=== PATIENT | female | born 1930 | race Caucasian/White ===

== ENCOUNTER 2016-02-29 16:11 | Inpatient (IN) | payer OTHER ==
[~2016-02-29] VITALS: Ht 162.6 cm; Wt 88.8 kg
--- NOTE | 2016-02-29 02:00 | NUR ---
DR. AVINA CALLED AT HOME TO CLARIFY GOLYTELY DOSE. INFORMED THAT THERE WAS NO MOVIPREP LIKE HE HAD ORDERED. STATED THAT PT JUST NEEDS 2 LITERS OF GOLYTELY A SPLIT DOSE; HALF THIS EVENING AND HALF IN THE MORNING. ORDER READ BACK AND WRITTEN IN CHART. FRIST UNIT INFUSING, PT TOLERATING WELL. PT ASYMPTOMATIC. PT DENIES ANY LIGHT HEADEDNESS, DIZZINESS, SOB. PT HAS SMALL AMOUNT OF BRIGHT RED BLOOD NOTED ON JESUS PAD. NO OTHER COMPLAINTS. PT IS DRINKING THE GOLYTELY WITHOUT ANY ISSUES. BED IN LOWEST POSITION, CALL LIGHT IN REACH, WCTM.
--- NOTE | 2016-02-29 18:08 | DIAGNOSTIC IMAGING REPORT ---
PROCEDURE: XR HIP 2VW W W/O AP PELVIS-RT INDICATION: Right hip pain. Possible overuse injury. TECHNIQUE: AP view of the pelvis and hips with lateral view of the right hip. COMPARISON: None. FINDINGS: RIGHT HIP: Osseous structures and joint spaces are normal. PELVIS: Osseous pelvis is normal. Dystrophic calcifications overlying the right lower abdomen/upper pelvis most likely represent old calcified lymph nodes. IMPRESSION: 1. Negative pelvis and right hip. 2. Findings discussed with Dr. Iverson.
--- NOTE | 2016-02-29 18:53 | ED CLINICAL REPORT ---
Clinical Report - Physicians/Mid Levels [facility] [address] [place] [address] 02/29/2016 16:12 Patient: YOU CASTRO Time Seen: 16:55. Arrived- By private vehicle. Historian- patient. HISTORY OF PRESENT ILLNESS Chief Complaint: RECTAL BLEEDING. This started today and is still present. It was abrupt in onset and has been intermittent. The patient has had rectal bleeding but not had rectal pain. No constipation or nausea. She has had loose stools (chronically). It has been similar to previous symptoms. Similar symptoms previously: REVIEW OF SYSTEMS No chills, fever, sweats, chest pain or cough. No difficulty breathing, pedal edema, palpitations, abdominal pain or urinary problems. She has had joint pain (for several days), involving the right hip. All systems otherwise negative, except as recorded above. PAST HISTORY PCP - Margaret. Problems: Labyrinthitis. Arthritis. Anemia. Hyperlipidemia. Hypertension. Glaucoma. Vertigo. Diabetes Mellitus. Additional Surgeries: Breast surgery. Knee. Medications: Xarelto Oral. Gabapentin Oral. Lovastatin Oral. Metoprolol Tartrate Oral. Escitalopram Oxalate Oral (Tablet 5 mg), 2x a day. Acidophilus Oral. Januvia Oral (Tablet 50 mg) 1 tablet, daily. Insulin Lantus 28 28 Units, at bedtime. Antivert Oral (Tablet 25 mg), as needed. ASA Oral. Aspirin Oral (Tablet 81 mg), as needed. Glipizide Oral (Tablet 10 mg) 1 tablet, 2x a day. Januvia Oral (Tablet 100 mg) 1 tablet. Lisinopril Oral (Tablet 20 mg) 1 tablet, daily. Omeprazole Oral (Tablet Delayed Release 20 mg) 1 tablet, 2x a day. Simvastatin Oral (Tablet 20 mg) 1 tablet, daily. Allergies: Sulfa Antibiotics. SOCIAL HISTORY Former smoker. Occasional alcohol use. FAMILY HISTORY Denies family medical history. ADDITIONAL NOTES The nursing notes have been reviewed. PHYSICAL EXAM Vital Signs: 02/29/2016 16:32 BP: 174/74. HR: 86. RR: 16. O2 saturation: 95%. Temp: 98.2 F. Pain level now: 0/10. Have been reviewed. Appearance: Alert. Eyes: Pupils equal, round and reactive to light. ENT: Pharynx normal. Neck: Neck supple. CVS: Normal heart rate and rhythm. Heart sounds normal. Respiratory: No respiratory distress. Breath sounds normal. Abdomen: Soft and nontender. Bowel sounds normal. No organomegaly. No mass. Back: Normal inspection. Anoscopy: Internal hemorrhoid noted. ( performing anoscopy was very uncomfortable for the patient. I did see some nonthrombosed internal hemorrhoids. There was bright red blood flowing over these. I was not able to clearly visualize the source.). Unable to visualize source. Skin: Skin warm and dry. Extremities: Extremities exhibit normal ROM. No calf tenderness. Right hip: mild tenderness. Limited ROM secondary to pain (diminished flexion). Neurovascular intact distally. No lower extremity edema. LABS, X-RAYS, AND EKG Rt Hip X-ray: (IMPRESSION: 1. Negative pelvis and right hip.). The X-rays were interpreted contemporaneously by me and discussed with the radiologist. Laboratory Tests: UA-Culture if indicated: (TWIN: 02/29/2016 17:15) ( MsgRcvd 02/29/2016 18:14) Final results Test Result Flag Units (Reference) URINE COLOR YELLOW URINE APPEARANCE SL CLOUDY URINE GLUCOSE 2+ (NEGATIVE) URINE BILIRUBIN NEGATIVE (NEGATIVE) URINE KETONE NEGATIVE (NEGATIVE) URINE SPECIFIC GRAVITY 1.015 (1.010-1.030) URINE PH 6.0 (5.0-8.0) URINE PROTEIN 1+ (NEGATIVE) URINE UROBILINOGEN 0.2 EU/dL (0.2-1.0) URINE NITRITE POSITIVE (NEGATIVE) URINE BLOOD 2+ (NEGATIVE) URINE LEUK ESTERASE POSITIVE (NEGATIVE) URINE RBC 25-50 rbc/hpf (0-1) URINE WBC 10-15 wbc/hpf (0-1) URINE EPITHELIAL CELLS 3-5 EPI/hpf (0-5) URINE BACTERIA MANY (4+) (NONE SEEN) URINE COMMENT CULTURE INDICATED URINE CULTURES ARE SET-UP BASED ON THE FOLLOWING CRITERIA:POSITIVE NITRITEPOSITIVE LEUKOCYTE ESTERASEGREATER THAN 10 WHITE BLOOD CELLSMODERATE (2+) OR GREATER BACTERIA CBC w Diff: (TWIN: 02/29/2016 17:00) ( [facility] 02/29/2016 17:27) Final results Test Result Flag Units (Reference) WHITE BLOOD COUNT 7.5 K/uL (4.5-11.5) RED BLOOD COUNT 3.34 L M/uL (4.00-5.20) HEMOGLOBIN 7.9 L gm/dL (12.0-16.0) HEMATOCRIT 24.7 L % (36.0-46.0) MEAN CELL VOLUME 74 L fL (80-100) MEAN CORPUSCULAR HGB 24 L pg (26-34) MEAN CORPUSCULAR HGB CONC 32 g/dL (31-37) RED CELL DISTRIBUTION WIDTH 16.6 H % (11.6-14.8) PLATELET COUNT 358 K/uL (150-400) NEUTROPHIL % 72.2 % (50-75) LYMPH % 16.7 L % (25-40) MONO % 8.0 % (3-14) EOSINOPHIL % 2.3 % (0-4) BASOPHIL % 0.8 % (0-2) PT with INR: (TWIN: 02/29/2016 17:00) ( [facility] 02/29/2016 18:31) Final results Test Result Flag Units (Reference) INR 1.4 H (0.8-1.2) Low Intensity Therapy: INR 1.5-2.0 PT range 18.5-23.1Mod.Intensity Therapy: INR 2.0-3.0 PT range 23.1-31.5High Intensity Therapy: INR 2.5-3.5 PT range 27.4-35.5High Intensity Therapy 2: INR 3.0-4.0 PT range 31.5-39.3 APTT 30 SECONDS (24-34) CMP: (TWIN: 02/29/2016 17:00) ( [facility] 02/29/2016 17:50) Final results Test Result Flag Units (Reference) GLUCOSE 295 H mg/dL (70-110) BUN 14 mg/dL (7-18) CREATININE 1.1 mg/dL (0.6-1.3) Estimated GFR 50.42 mL/min Estimated GFR- >60 mL/min Note: Persistent reduction over 3 months in eGFR<60 mL/min/1.73 m2 defines CKD. Patients with eGFR values>=60 mL/min/1.73 m2 may also have CKD if evidence ofpersistent proteinuria. Additional information may be foundat www.kidney.org. SODIUM 129 L mmol/L (136-145) POTASSIUM 4.3 mmol/L (3.5-5.1) CHLORIDE 95 L mmol/L (98-107) CARBON DIOXIDE 27 mmol/L (21-32) CALCIUM 8.1 L mg/dL (8.5-10.1) TOTAL PROTEIN 7.9 g/dL (6.4-8.2) ALBUMIN 3.0 L g/dL (3.3-5.0) BILIRUBIN, TOTAL 0.3 mg/dL (0.0-1.0) ALKALINE PHOSPHATASE 91 U/L (46-116) AST (SGOT) 18 U/L (15-37) ALT (SGPT) 15 U/L (12-78) LIPASE 236 U/L (73-393) AMYLASE 36 U/L (25-115) . PROGRESS AND PROCEDURES Course of Care: Patient is stable. Discussed case with hospitalist, (Amanda). Reviewed test results and need for additional work-up. Agreed upon treatment plan, need for patient follow-up and decision to admit. Health care provider will see patient in hospital. Consult obtained. Edin. Case discussed. Phone consult only. Will see patient in the hospital. Patient/family counseled. Additional history sought. the patient's family checked with her daughter in [place] and apparently the patient is on Xarelto because many months back she had had an injury and was bedbound for some time. She had been put on warfarin to reduce the risk of DVT and PE. However given difficulty measuring levels of this she was transitioned to t this med. Her family report that she has never had a DVT or PE. Old medical records ordered. Old records unavailable. Disposition orders written (in [facility]). Disposition: Admitted. Observation. CLINICAL IMPRESSION GI bleed. Anemia. anticoagulation therapy right hip pain. INSTRUCTIONS Drink plenty of fluids. Warnings: Further evaluation is necessary. GENERAL WARNINGS: Return or contact your physician immediately if your condition worsens or changes unexpectedly, if not improving as expected, or if other problems arise. Prescription Medications: Macrobid 100 mg: Take 1 capsule orally every 12 hours for 7 days. No refills. Substitution is permissible. (Electronically signed by Cristobal Iverson MD 02/29/2016 21:56)
--- NOTE | 2016-02-29 18:53 | ED NURSING NOTES ---
Clinical Report - Nurses [place] [address] [place] [address] 02/29/2016 16:12 Patient: YOU CASTRO TRIAGE Triage time 16:30 Feb 29 2016. Acuity: LEVEL 3. Chief Complaint: RECTAL BLEED. Alert. BETTIE COMA SCORE: [place] Coma Scale: 15- eyes open spontaneously (4); best verbal response- oriented x 4 (5); best motor response- obeys commands (6). --16:48 Saad Robles R.N. 16:32 02/29/16. BP: 174/74. HR: 86. RR: 16. O2 saturation: 95% on room air. Temp: 98.2 F (oral). Pain level now: 0/10. --16:48 Saad Robles R.N. Weight: 80 kg stated. Height/Length: 64 inches Per Patient. BMI: 30.3. --16:32 Saad Robles R.N. Medications Antivert Oral (Tablet 25 mg), as needed. ASA Oral. Aspirin Oral (Tablet 81 mg), as needed. Glipizide Oral (Tablet 10 mg) 1 tablet, 2x a day. Januvia Oral (Tablet 100 mg) 1 tablet. Lisinopril Oral (Tablet 20 mg) 1 tablet, daily. Omeprazole Oral (Tablet Delayed Release 20 mg) 1 tablet, 2x a day. Simvastatin Oral (Tablet 20 mg) 1 tablet, daily. --16:35 Saad Robles R.N. Insulin Lantus 28 28 Units, at bedtime. --16:36 Saad Robles R.N. Januvia Oral (Tablet 50 mg) 1 tablet, daily. --16:37 Saad Robles R.N. Acidophilus Oral. --16:38 Saad Robles R.N. Escitalopram Oxalate Oral (Tablet 5 mg), 2x a day. --16:38 Saad Robles R.N. Metoprolol Tartrate Oral. --16:39 Travis, Saad, R.N. Lovastatin Oral. --16:40 Saad Robles R.N. Gabapentin Oral. --16:40 Saad Robles R.N. Allergies Sulfa Antibiotics. --16:35 Saad Robles R.N. Medication/allergy information source: the patient and patient's family. --16:48 Saad Robles R.N. History Arrived by private vehicle. Historian: patient. Accompanied by daughter. Primary physician (Margaret). ( Rectal Bleeding starting this morning. Also new pain in (R) leg.). This started today. Onset. (about 7 hours ago). ( Upper (R) Leg Pain). Treatment PAIN MANAGEMENT NURSE PRACTITIONER: None. PAST MEDICAL HX: Immunizations: status is unknown. The patient is post-menopausal. SOCIAL HX: Smoker- current status unknown. Alcohol use; consumes one liquor drink weekly and glass of wine weekly. No infectious disease exposure. ABUSE ASSESSMENT: No report of abuse. FALL RISK ASSESSMENT: Fall risk assessment completed. No fall risk identified. NUTRITIONAL RISK ASSESSMENT: The nutritional risk assessment revealed no deficiencies. FUNCTIONAL ASSESSMENT: Functional assessment: no impairments noted. LEARNING NEEDS ASSESSMENT: The learning needs assessment revealed no barriers. SKIN INTEGRITY ASSESSMENT: Skin integrity risk assessment completed. No skin integrity risk identified. --16:48 Saad Robles R.N. PROBLEMS: Labyrinthitis. Arthritis. Anemia. Hyperlipidemia. Hypertension. Glaucoma. Vertigo. Diabetes Mellitus. --16:43 Saad Robles R.N. ADDITIONAL SURGERIES: Breast surgery. --16:43 Saad Robles R.N. Interventions ID band on patient. To treatment room. --16:48 Saad Robles R.N. Allergy band on patient. --16:48 Saad Robles R.N. PHYSICAL ASSESSMENT Ambulatory to room. GENERAL / NEURO / PSYCH: Alert. Oriented X 4. HEENT: No facial asymmetry noted. Mucous membranes are pink. RESPIRATORY: Respirations not labored. Breath sounds within normal limits. CVS: Normal sinus rhythm noted. GI / : Abdomen soft and nontender. SKIN: Skin intact. Skin is warm and dry. Normal skin turgor. --16:49 Saad Robles R.N. NURSING PROGRESS NOTES Patient gowned. Reassurance given. Patient identifiers checked. Call light placed in reach. Bed placed in lowest position. Brakes of bed on. Patient ready for evaluation- chart flagged and ED physician notified. --16:49 Saad Robles R.N. 16:58 02/29/2016 Site #1 started via IV in the right antecubital space with an 20g angiocath, with aseptic technique and good blood return; one attempt. Blood drawn: rainbow set. Labeled in the presence of the patient and sent to the lab. Saline lock flushed with 10 mL saline. --17:13 Saad Robles R.N. ( assisted with rectal exam.). --18:43 LarryAmanda, AMITA Tech1 20:26 02/29/2016 Site #[address] upon admission; patent, no pain and no signs of infection or infiltration. Good blood return present; flushes easily (Saline Lock). --20:54 Saad Robles R.N. DISPOSITION / DISCHARGE 20:25 02/29/16. BP: 172/52. HR: 85. RR: 16. O2 saturation: 96% on room air. Temp: 98.7 F (oral). Pain level now: 0/10. --20:26 Saad Robles R.N. Departure time: 20:26 Feb 29 2016. --20:26 Saad Robles R.N. 20:26. Admitted to the Critical Care Unit. Transported via stretcher by nurse with IV. Report was given to a nurse via a phone call. Report included patient's care, treatment, medications, reviewed medication reconcilliation, and condition (including any recent changes or anticipated changes). All questions were answered. Report was acknowledged and care was transferred. (Harmony RN). Patient's personal items; items were placed in belongings bag and transported with the patient. --20:52 Saad Robles R.N. Locked/Released at 02/29/2016 20:55 by Saad Robles R.N.
--- NOTE | 2016-02-29 18:53 | ED ORDER SUMMARY ---
..... Patient: YOU CASTRO OrderSheet [facility] VisitID: [id number] [address] [place] [address] 85y, F Registration Date/Time: 02/29/2016 ORDER SHEET Weight: 80 kg (stated) Allergies: Sulfa Antibiotics GENERAL ORDERS: Set up (anoscope) (16:57 02/29/2016 Vince GARCIA) (17:12 Meseret R.N.) CBC w Diff Urgent (16:57 02/29/2016 Vince GARCIA) (Ack 16:59 NHouse ER Tech1) (17:12 Meesret R.N.) CMP Urgent (16:57 02/29/2016 Vince GARCIA) (Ack 16:59 NHouse ER Tech1) (17:12 Meseret R.N.) PT with INR Urgent (16:57 02/29/2016 Vince GARCIA) (Ack 16:59 NHouse ER Tech1) (17:12 Meseret R.N.) PTT Urgent (16:57 02/29/2016 Vince GARCIA) (Ack 16:59 NHouse ER Tech1) (17:12 Meseret R.N.) UA-Culture if indicated Urgent (16:57 02/29/2016 Vince GARCIA) (Ack 16:59 MOouse ER Tech1) (20:21 Meseret R.N.) Amylase Urgent (16:57 02/29/2016 Vince GARCIA) (Ack 16:59 NHouse ER Tech1) (17:12 Meseret R.N.) Lipase Urgent (16:57 02/29/2016 Vince GARCIA) (Ack 16:59 NHouse ER Tech1) (17:12 Meseret R.N.) Type & Screen Urgent (16:57 02/29/2016 Vince GARCIA) (Ack 16:59 MOouse ER Tech1) (17:12 Meseret R.N.) Hip 2V Right w AP Pelvis Urgent (17:43 02/29/2016 Vince GARCIA) (Ack 17:44 NHouse ER Tech1) (17:55 NHouse ER Tech1) MEDICATION ORDERS: IV FLUIDS: IV Saline Lock (16:57 02/29/2016 Vince GARCIA) (17:13 Meseret Joaquin) ORDER SHEET NOTES: [Electronically signed by Saad Robles R.N. (20:55 02/29/2016)] [Electronically signed by Cristobal Iverson MD (21:56 02/29/2016)] [Electronically locked/signed by Saad Robles R.N. (20:55 02/29/2016)]
--- NOTE | 2016-02-29 18:53 | ED ORDER SUMMARY ---
..... Patient: YOU CASTRO OrderSheet [facility] VisitID: [id number] [address] [place] [address] 85y, F Registration Date/Time: 02/29/2016 ORDER SHEET Weight: 80 kg (stated) Allergies: Sulfa Antibiotics GENERAL ORDERS: Set up (anoscope) (16:57 02/29/2016 Vince GARCIA) (17:12 Meseret R.N.) CBC w Diff Urgent (16:57 02/29/2016 Vince GARCIA) (Ack 16:59 NHouse ER Tech1) (17:12 Meseret R.N.) CMP Urgent (16:57 02/29/2016 Vince GARCIA) (Ack 16:59 NHouse ER Tech1) (17:12 Meseret R.N.) PT with INR Urgent (16:57 02/29/2016 Vince GARCIA) (Ack 16:59 NHouse ER Tech1) (17:12 Meseret R.N.) PTT Urgent (16:57 02/29/2016 Vince GARCIA) (Ack 16:59 NHouse ER Tech1) (17:12 Meseret R.N.) UA-Culture if indicated Urgent (16:57 02/29/2016 Vince GARCIA) (Ack 16:59 TNouse ER Tech1) (20:21 Meseret R.N.) Amylase Urgent (16:57 02/29/2016 Vince GARCIA) (Ack 16:59 NHouse ER Tech1) (17:12 Meseret R.N.) Lipase Urgent (16:57 02/29/2016 Vince GARCIA) (Ack 16:59 NHouse ER Tech1) (17:12 Meseret R.N.) Type & Screen Urgent (16:57 02/29/2016 Vince GARCIA) (Ack 16:59 TNouse ER Tech1) (17:12 Meseret R.N.) Hip 2V Right w AP Pelvis Urgent (17:43 02/29/2016 Vince GARCIA) (Ack 17:44 NHouse ER Tech1) (17:55 NHouse ER Tech1) MEDICATION ORDERS: IV FLUIDS: IV Saline Lock (16:57 02/29/2016 Vince GARCIA) (17:13 Meseret Joaquin) ORDER SHEET NOTES: [Electronically signed by Saad Robles R.N. (20:55 02/29/2016)] [Electronically signed by Cristobal Iverson MD (21:56 02/29/2016)] [Electronically locked/signed by Saad Robles R.N. (20:55 02/29/2016)]
[2016-02-29] MEDS ORDERED: ESCITALOPRAM OXA5 MG PO (19:59)
[2016-02-29] MEDS ORDERED: ASPIRIN81 M1 PO (19:59)
[2016-02-29] MEDS ORDERED: LANTUS SOL100 UNITS/ SC (20:00)
[2016-02-29] MEDS ORDERED: GLIPIZIDE5 MG PO (20:00)
[2016-02-29] MEDS ORDERED: JANUVIA50 MG PO (20:01)
[2016-02-29] MEDS ORDERED: LISINOPRIL10 MG PO (20:02)
[2016-02-29] MEDS ORDERED: OMEPRAZOLE20 MG PO (20:02)
[2016-02-29] MEDS ORDERED: ZOCOR20 MG PO (20:03)
[2016-02-29 20:57] VITALS: BP 185/68
[2016-02-29 21:00] VITALS: BP 173/60
--- NOTE | 2016-02-29 21:15 | NUR ---
NEW ADMIT FROM ED @ 2056. PT BROUGHT UP VIA STRETCHER BY SOLAR LAB TECHNICIAN. PT ALERT AND ORIENTED. PT'S FAMILY MEMBER PRESENT. PT ABLE TO STAND AND WALK SEVERAL STEPS TO THE BED WITH 1 PERSON ASSIST, PT TOLERATED WELL. PT BROUGHT HER HOME FWW. WHEN PT WAS TRANSFERING TO BED, THE PAD ON THE ER STRETCHER A SMALL JACKSON OF FRESH BLOOD PRESENT, AND PT'S UNDER HAD OLD AND FRESH BLOOD NOTED. PT CLEARNED UP, FRESH MESH UNDERWEAR AND PAD PLACED ALONG WITH GOWN. PT PLACED ON TELE, AND BLOOD SUGAR CHECKED AND IT WAS 264. BED IN LOWEST POSITON, CALL LIGHT IN REACH, BED IN LOWEST POSITION, WCTM.
--- NOTE | 2016-02-29 21:56 | ED MAR SUMMARY ---
..... Medication Administration Record [facility] [address] [place], [place] [id number] Patient: YOU CASTRO Visit ID: [id number] 85y, F Weight: 80.0 kg Height/Length: 64 in BMI: 30.3 ALLERGIES: Sulfa Antibiotics
--- NOTE | 2016-02-29 21:56 | ED MED RECONCILIATION SUMMARY ---
Patient: YOU CASTRO Medication Reconciliation Report [facility] VisitID: [id number] [address] [place] [address] 85y, F Registration Date/Time: 02/29/2016 Weight: 80 kg Height/Length: 64 in. BMI: 30.3 ALLERGIES: Sulfa Antibiotics The patient's Home Medications are listed below: THE FOLLOWING MEDICATIONS NEED TO BE RECONCILED: Acidophilus Oral Antivert Oral (25 mg) ASA Oral Aspirin Oral (81 mg) Escitalopram Oxalate Oral (5 mg), 2x a day Gabapentin Oral Glipizide Oral (10 mg) 1 tablet, 2x a day Insulin Lantus 28 28 Units, at bedtime Januvia Oral (50 mg) 1 tablet, daily Januvia Oral (100 mg) 1 tablet Lisinopril Oral (20 mg) 1 tablet, daily Lovastatin Oral Metoprolol Tartrate Oral Omeprazole Oral (20 mg) 1 tablet, 2x a day Simvastatin Oral (20 mg) 1 tablet, daily Xarelto Oral The source(s) of the original Home Medication information: patient patient's family member The following Medications were given to the patient in the Emergency Department: None. The following Medications were prescribed to the patient: Macrobid 100 mg: Take 1 capsule orally every 12 hours for 7 days. No refills. Substitution is permissible. -- Cristobal Iverson MD
--- NOTE | 2016-02-29 21:56 | ED MAR SUMMARY ---
..... Medication Administration Record [facility] [address] [place], [place] [id number] Patient: YOU CASTRO Visit ID: [id number] 85y, F Weight: 80.0 kg Height/Length: 64 in BMI: 30.3 ALLERGIES: Sulfa Antibiotics
--- NOTE | 2016-02-29 21:56 | ED MED RECONCILIATION SUMMARY ---
Patient: YOU CASTRO Medication Reconciliation Report [facility] VisitID: [id number] [address] [place] [address] 85y, F Registration Date/Time: 02/29/2016 Weight: 80 kg Height/Length: 64 in. BMI: 30.3 ALLERGIES: Sulfa Antibiotics The patient's Home Medications are listed below: THE FOLLOWING MEDICATIONS NEED TO BE RECONCILED: Acidophilus Oral Antivert Oral (25 mg) ASA Oral Aspirin Oral (81 mg) Escitalopram Oxalate Oral (5 mg), 2x a day Gabapentin Oral Glipizide Oral (10 mg) 1 tablet, 2x a day Insulin Lantus 28 28 Units, at bedtime Januvia Oral (50 mg) 1 tablet, daily Januvia Oral (100 mg) 1 tablet Lisinopril Oral (20 mg) 1 tablet, daily Lovastatin Oral Metoprolol Tartrate Oral Omeprazole Oral (20 mg) 1 tablet, 2x a day Simvastatin Oral (20 mg) 1 tablet, daily Xarelto Oral The source(s) of the original Home Medication information: patient patient's family member The following Medications were given to the patient in the Emergency Department: None. The following Medications were prescribed to the patient: Macrobid 100 mg: Take 1 capsule orally every 12 hours for 7 days. No refills. Substitution is permissible. -- Cristobal Iverson MD
--- NOTE | 2016-02-29 21:56 | ED DISCHARGE INSTRUCTIONS ---
Patient: YOU CASTRO General Instructions [facility] VisitID: [id number] [place] [address] 85y, F Registration Date/Time: 02/29/2016 GI bleed. Anemia. anticoagulation therapy right hip pain. INSTRUCTIONS Drink plenty of fluids. Warnings: Further evaluation is necessary. GENERAL WARNINGS: Return or contact your physician immediately if your condition worsens or changes unexpectedly, if not improving as expected, or if other problems arise. Prescription Medications: Macrobid 100 mg: Take 1 capsule orally every 12 hours for 7 days. No refills. Substitution is permissible. ADDITIONAL INFORMATION Nitrofurantoin, Nitrofurantoin, Macrocrystalline Oral capsule What is this medicine? NITROFURANTOIN (magdalene CAST toyn) is an antibiotic. It is used to treat urinary tract infections. How should I use this medicine? Take this medicine by mouth with a glass of water. Follow the directions on the prescription label. Take this medicine with food or milk. Take your doses at regular intervals. Do not take your medicine more often than directed. Do not stop taking except on your doctor's advice. Talk to your multimedia artist regarding the use of this medicine in children. While this drug may be prescribed for selected conditions, precautions do apply. What side effects may I notice from receiving this medicine? Side effects that you should report to your doctor or health resident care supervisor as soon as possible: allergic reactions like skin rash or hives, swelling of the face, lips, or tongue chest pain cough difficulty breathing dizziness, drowsiness fever or infection joint aches or pains pale or blue-tinted skin redness, blistering, peeling or loosening of the skin, including inside the mouth tingling, burning, pain, or numbness in hands or feet unusual bleeding or bruising unusually weak or tired yellowing of eyes or skin Side effects that usually do not require medical attention (report to your doctor or health resident care supervisor if they continue or are bothersome): dark urine diarrhea headache loss of appetite nausea or vomiting temporary hair loss What may interact with this medicine? antacids containing magnesium trisilicate probenecid quinolone antibiotics like ciprofloxacin, lomefloxacin, norfloxacin and ofloxacin sulfinpyrazone What if I miss a dose? If you miss a dose, take it as soon as you can. If it is almost time for your next dose, take only that dose. Do not take double or extra doses. Where should I keep my medicine? Keep out of the reach of children. Store at room temperature between 15 and 30 degrees C (59 and 86 degrees F). Protect from light. Throw away any unused medicine after the expiration date. What should I tell my health care provider before I take this medicine? They need to know if you have any of these conditions: anemia diabetes [id number] dehydrogenase deficiency kidney disease liver disease lung disease other chronic illness an unusual or allergic reaction to nitrofurantoin, other antibiotics, other medicines, foods, dyes or preservatives or trying to get breast-feeding What should I watch for while using this medicine? Tell your doctor or health resident care supervisor if your symptoms do not improve or if you get new symptoms. Drink several glasses of water a day. If you are taking this medicine for a long time, visit your doctor for regular checks on your progress. If you are diabetic, you may get a false positive result for sugar in your urine with certain brands of urine tests. Check with your doctor. You have been given the following additional information: Nitrofurantoin, Nitrofurantoin, Macrocrystalline Oral capsule (Electronically signed by Cristobal Iverson MD 02/29/2016 21:56)
--- NOTE | 2016-02-29 21:56 | ED DISCHARGE INSTRUCTIONS ---
Patient: YOU CASTRO General Instructions [facility] VisitID: [id number] [place] [address] 85y, F Registration Date/Time: 02/29/2016 GI bleed. Anemia. anticoagulation therapy right hip pain. INSTRUCTIONS Drink plenty of fluids. Warnings: Further evaluation is necessary. GENERAL WARNINGS: Return or contact your physician immediately if your condition worsens or changes unexpectedly, if not improving as expected, or if other problems arise. Prescription Medications: Macrobid 100 mg: Take 1 capsule orally every 12 hours for 7 days. No refills. Substitution is permissible. ADDITIONAL INFORMATION Nitrofurantoin, Nitrofurantoin, Macrocrystalline Oral capsule What is this medicine? NITROFURANTOIN (magdalene CAST toyn) is an antibiotic. It is used to treat urinary tract infections. How should I use this medicine? Take this medicine by mouth with a glass of water. Follow the directions on the prescription label. Take this medicine with food or milk. Take your doses at regular intervals. Do not take your medicine more often than directed. Do not stop taking except on your doctor's advice. Talk to your spanish speaking babysitter regarding the use of this medicine in children. While this drug may be prescribed for selected conditions, precautions do apply. What side effects may I notice from receiving this medicine? Side effects that you should report to your doctor or health home care attendant as soon as possible: allergic reactions like skin rash or hives, swelling of the face, lips, or tongue chest pain cough difficulty breathing dizziness, drowsiness fever or infection joint aches or pains pale or blue-tinted skin redness, blistering, peeling or loosening of the skin, including inside the mouth tingling, burning, pain, or numbness in hands or feet unusual bleeding or bruising unusually weak or tired yellowing of eyes or skin Side effects that usually do not require medical attention (report to your doctor or health home care attendant if they continue or are bothersome): dark urine diarrhea headache loss of appetite nausea or vomiting temporary hair loss What may interact with this medicine? antacids containing magnesium trisilicate probenecid quinolone antibiotics like ciprofloxacin, lomefloxacin, norfloxacin and ofloxacin sulfinpyrazone What if I miss a dose? If you miss a dose, take it as soon as you can. If it is almost time for your next dose, take only that dose. Do not take double or extra doses. Where should I keep my medicine? Keep out of the reach of children. Store at room temperature between 15 and 30 degrees C (59 and 86 degrees F). Protect from light. Throw away any unused medicine after the expiration date. What should I tell my health care provider before I take this medicine? They need to know if you have any of these conditions: anemia diabetes [id number] dehydrogenase deficiency kidney disease liver disease lung disease other chronic illness an unusual or allergic reaction to nitrofurantoin, other antibiotics, other medicines, foods, dyes or preservatives or trying to get breast-feeding What should I watch for while using this medicine? Tell your doctor or health home care attendant if your symptoms do not improve or if you get new symptoms. Drink several glasses of water a day. If you are taking this medicine for a long time, visit your doctor for regular checks on your progress. If you are diabetic, you may get a false positive result for sugar in your urine with certain brands of urine tests. Check with your doctor. You have been given the following additional information: Nitrofurantoin, Nitrofurantoin, Macrocrystalline Oral capsule (Electronically signed by Cristobal Iverson MD 02/29/2016 21:56)
[2016-02-29 22:00] VITALS: BP 151/58
--- NOTE | 2016-02-29 22:08 | Progress Note ---
Subjective General Admission History and Physical Examination Patient Name: Mere Zuluaga Admission Date: February 29, 2016 Primary Care Provider: Dominic Robles M.D. Attending Physician: Dawood Patel M.D. Admitting Physician: Dawood Patel M.D. Consulting Physician: Edwin Jesus M.D. SUBJECTIVE Historian: Patient and friend Reliability: Fair Chief Complaint: Rectal bleeding History of Present Illness: The patient is a 85-year-old white female with a significant past medical history of diabetes mellitus, vertebral compression fracture, hypertension, chronic back pain, chronic anticoagulation who presented to [facility] emergency department secondary to complaints of bright red blood per rectum. [facility] ER evaluation was consistent with rectal bleeding in the setting of chronic anticoagulation, anemia, and UTI. Secondary to the above, the patient was admitted by Dawood Patel M.D. for further evaluation and treatment. The history of present was began several months prior to admission when the patient experienced recurrent episodes of bright red blood per rectum. This was not heavy. It was intermittent. On the day of admission she had a large amount of bright red blood per rectum which prompted her to seek out evaluation at [facility] emergency department. Evaluation at [facility] emergency department showed the patient have vital signs of blood pressure 174/74, pulse 86, respirations 16, temperature 98.2. Height, O2 sat room air 95%. Physical exam was noncontributory. Laboratory evaluation included CBC hemoglobin 7.9, hematocrit 24.7, WBC 7.5, MCV 74, Chemistry profile-sodium 129, potassium 4.3, chloride 95, CO2 27, BUN 14, creatinine 1.1, glucose 295. Urinalysis was consistent with UTI. Secondary to the above the patient was admitted with a diagnosis of lower GI bleed with chronic anticoagulation, anemia, UTI, and poorly controlled diabetes mellitus. PAST MEDICAL HISTORY Illnesses: 1. Hypertension 2. Type 2 diabetes mellitus 3. Vertebral compression fractures 4. Gastroesophageal reflux 5. Anemia 6. Chronic diarrhea 7. Chronic back pain 8. Chronic anticoagulation Allergies: 1. No Known Drug Allergies Medications: 1. Prilosec 20 mg by mouth twice a day 2. Gabapentin 100 mg 2 by mouth twice a day 3. Cozaar 50 mg 1 by mouth daily 4. Simvastatin 20 mg by mouth daily 5. Lopressor 25 mg by mouth twice a day 6. Januvia 50 mg by mouth daily 7. Citalopram 20 mg by mouth daily 8. Xarelto 20 mg by mouth daily Surgery: 1. None Injuries: 1. Vertebral fracture Hospitalizations: 1. For above surgery and medical problems FAMILY HISTORY Parents: 1. Father, , 80, heart disease-type unknown, 2. Mother, , 70, lung cancer Siblings: 1. Female, , 70, colon cancer Children: 1. The patient has 4 children all of which are in good health Other significant family history: None SOCIAL HISTORY 1. Marital Status: 2. Christianity: Zoroastrian 3. Education: High school 4. Employment History: [employer], retired age 64 5. Occupational health exposures: None HABITS 1. Tobacco: Distant usage, stopped 40 years prior to admission 2. Drugs: None 3. Alcohol: 8 ounces per week 4. Caffeine: 4 cups per day-coffee HEALTH SUPERVISION Item/Test 1. Vision screen: 2014 2. Cholesterol Profile: Unknown 3. PSA: Not applicable 4. HANS: Not applicable 5. FOBT: Unknown 6. Blood Glucose: 2016 7. Colonoscopy: 2010 8. History and physical exam: 2015 9. Audiogram: Unknown 10. Pap/pelvic exam: Unknown 11: Mammogram: Unknown IMMUNIZATIONS: 1. Pneumococcal: Previously obtained date unknown 2. Influenza: 2015 3. Tetanus: 2014 REVIEW OF SYSTEMS Remarkable for those things stated in the history of present illness and past medical history. Seventeen point review of system completed with the following notable findings: Mouth: Gums soreness Respiratory: Cough Cardiovascular: Hypertension, ankle swelling Gastrointestinal: Blood in stool Musculoskeletal: Chronic back pain Neurological: Memory loss Blood and lymphatic: Anemia Endocrine: Diabetes mellitus Psychological: Depression, difficulty sleeping, loss of interest in enjoyable events Physical Exam Vital Signs / I&Os Vital Signs Date Time Temp Pulse Resp B/P Pulse O2 O2 Flow FiO2 Ox Delivery Rate 02/29 2056 97.9 76 18 185/68 99 Room Air General Appearance Alert, Oriented X3, Cooperative, No acute distress HEENT Atraumatic, PERRLA, EOMI, Moist mucous membranes Lungs Clear to auscultation, Normal air movement Neck Supple, No JVD Cardiovascular Regular rate and rhythm, Normal S1 and S2 Abdomen Normal bowel sounds, Soft, No tenderness, No guarding Extremities No cyanosis, No clubbing, Bilateral LE edema, compression wrap (R) lower leg. Neurological Cranial nerves intact, Strength 5/5 x4 ext's, No lateralizing signs Psych/Mental Status Mental status normal, Mood normal LAB Results Laboratory Tests 02/28 02/28 1715 1700 Chemistry Plasma Sodium (136 - 145 mmol/L) 129 Plasma Potassium (3.5 - 5.1 mmol/L) 4.3 Plasma Chloride (98 - 107 mmol/L) 95 CO2 (Enzymatic) (21 - 32 mmol/L) 27 BUN (7 - 18 mg/dL) 14 Creatinine (0.6 - 1.3 mg/dL) 1.1 Est GFR ( Amer) (mL/min) >60 Est GFR (Non-Af Amer) (mL/min) 50.42 Glucose (70 - 110 mg/dL) 295 Plasma Calcium (8.5 - 10.1 mg/dL) 8.1 Total Bilirubin (0.0 - 1.0 mg/dL) 0.3 AST (15 - 37 U/L) 18 ALT (12 - 78 U/L) 15 Alkaline Phosphatase (46 - 116 U/L) 91 Total Protein (6.4 - 8.2 g/dL) 7.9 Albumin (3.3 - 5.0 g/dL) 3.0 Amylase (25 - 115 U/L) 36 Lipase (73 - 393 U/L) 236 Coagulation INR (0.8 - 1.2) 1.4 APTT (24 - 34 SECONDS) 30 Hematology WBC (4.5 - 11.5 K/uL) 7.5 RBC (4.00 - 5.20 M/uL) 3.34 Hgb (12.0 - 16.0 gm/dL) 7.9 Hct (36.0 - 46.0 %) 24.7 MCV (80 - 100 fL) 74 MCH (26 - 34 pg) 24 RDW (11.6 - 14.8 %) 16.6 Neut % (Auto) (50 - 75 %) 72.2 Lymph % (Auto) (25 - 40 %) 16.7 Kane % (Auto) (3 - 14 %) 8.0 Eos % (Auto) (0 - 4 %) 2.3 Baso % (Auto) (0 - 2 %) 0.8 Plt Count, EDTA (150 - 400 K/uL) 358 PUBS MCHC (31 - 37 g/dL) 32 Urines Urine Color YELLOW Urine Appearance SL CLOUDY Urine pH (5.0 - 8.0) 6.0 Ur Specific Collins (1.010 - 1.030) 1.015 Urine Protein (NEGATIVE) 1+ Urine Ketones (NEGATIVE) NEGATIVE Urine Blood (NEGATIVE) 2+ Urine Nitrite (NEGATIVE) POSITIVE Urine Bilirubin (NEGATIVE) NEGATIVE Urine Urobilinogen (0.2 - 1.0 EU/dL) 0.2 Ur Leukocyte Esterase (NEGATIVE) POSITIVE Urine RBC (0 - 1 rbc/hpf) 25-50 Urine WBC (0 - 1 wbc/hpf) 10-15 Ur Epithelial Cells (0 - 5 EPI/hpf) 3-5 Urine Bacteria (NONE SEEN) MANY (4+) Urine Glucose (NEGATIVE) 2+ Urine Comment CULTURE INDICATED Microbiology Date/Time Procedure - Status Source Growth 02/28 1714 Urine Culture - RECD URINE CC Imaging Hip/pelvis X-Ray IMPRESSION: 1. Negative pelvis and right hip. 2. Findings discussed with Dr. Iverson. Dictated by: CATALINA VARELA MD D: BATOOL;02/29/16 4205 Assessment and Plan Problem List 1. GI bleeding Plan -Patient presents with findings of bright red blood per rectum -History of ongoing rectal bleeding -Surgical consult Dr. Jesus to perform colonoscopy -Hold anticoagulation 2. Anemia Plan -Patient shows moderate anemia -Anemia microcytic -Obtain iron studies, B12, folate -Serial hematocrits -Transfuse 2 units packed RBCs 3. Hip pain, right Plan -X-rays unremarkable -Monitor 4. Chronic anticoagulation Status Chronic Onset Date Unknown Plan -Hold anticoagulation -Discussed need for ongoing anticoagulation with PCP Dr. Robles 5. Vertebral compression fracture Status Chronic Onset Date Unknown Plan -Stable -Chronic back pain -Continue outpatient medical regimen as appropriate 6. Hypertension Status Chronic Onset Date Unknown Plan -Patient with history of hypertension -Blood pressure mildly elevated -Hold antihypertensives in setting of GI bleeding -Low-salt diet when taking well orally 7. Diabetes mellitus Status Chronic Onset Date Unknown Plan -Patient with long-standing history of diabetes mellitus -Insulin sliding scale -Check hemoglobin A1c -Monitor -Diabetic education as appropriate 8. GERD (gastroesophageal reflux disease) Status Chronic Onset Date Unknown Plan -Patient with history of gastroesophageal reflux -Continue Protonix 40 mg IV/by mouth daily -Monitor 9. Chronic diarrhea Status Chronic Onset Date Unknown Plan -Patient with history of chronic diarrhea -Check stool C&S, fecal leukocytes, C. difficile toxin, O&P -Monitor -Colonoscopy as noted above 10. UTI (urinary tract infection) Status Acute Onset Date Unknown Plan -UA suggestive of UTI -Rocephin 1 g IV daily -Urine C&S ordered -Monitor Current status: Fair, unstable Anticipated discharge date: Anticipated discharge in 24-48 hours Anticipated discharge placement: Home Patient care time: Time spent in chart review, patient interview, physical exam, CPOE, and care documentation: Greater than 70 minutes Visit to patient today: 2 Complexity of care: High E&M Codes Admission: Inpt-High/79120
[2016-02-29 23:46] VITALS: BP 151/47
[2016-03-01] VITALS (25 sets, daily range): BP systolic 127–199; BP diastolic 51–88
--- NOTE | 2016-03-01 02:00 | NUR ---
DR. MOJICA CALLED AT HOME TO CLARIFY GOLYTELY DOSE. INFORMED THAT THERE WAS NO MOVIPREP LIKE HE HAD ORDERED. STATED THAT PT JUST NEEDS 2 LITERS OF GOLYTELY A SPLIT DOSE; HALF THIS EVENING, SNF HALF IN AM. ORDER READ BACK AND WRITTEN IN CHART. FIRST UNIT INFUSING, PT TOLERATING WELL. PT ASYMPOMATIC. PT DENIES ANY LIGHT HEADEDNESS, DIZZINESS, SOB. PT HAS SMALL AMOUNT OF BRIGHT READ BLOOD NOTED ON JESUS PAD, NO OTHER COMPLAINTS. PT IS DRINKING GOLYTELY WITHOUT ANY ISSUES. BED IN LOWEST POSITION, CALL LIGHT IN REACH, WCTM.
--- NOTE | 2016-03-01 05:31 | NUR ---
PT IS RESTING IN BED. PT IS TOLERATING BLOOD WELL. PT IS ON SECOND UNIT OF BLOOD. PT NEEDS STAND BY ASSIST TO THE BSC. LABS DRAWN THIS AM. SCD'S ON LLE. PT IS STILL HAVING BRIGHT RED BLOOD NOTED ON BRIEF. PT IS ASYMPTOMATIC. STILL AWAITING STOOL SAMPLE. BED IN LOWEST POSITON, CALL LIGHT IN REACH, WCTM.
[2016-03-01] MEDS ORDERED: GABAPENTIN100 MG PO (05:44)
[2016-03-01] MEDS ORDERED: COZAAR50 MG PO (05:46)
[2016-03-01] MEDS ORDERED: LOPRESSOR25 MG PO (05:46)
[2016-03-01] MEDS ORDERED: ACIDOPHILUS PO (05:48)
[2016-03-01] MEDS ORDERED: XARELTO10 MG PO (05:49)
[2016-03-01] MEDS ORDERED: CITALOPRAM HYDR20 MG PO (05:49)
--- NOTE | 2016-03-01 10:29 | NUR ---
Patient in bed resting at this time. Denies pain and nausea. Patient continues to drink her golytley. Patient up to BSC one person assistance uses walker for support. Patient continues to pass small red blood clots. Urine yellow and clear. Generalized weakness noted from having to get up to BSC frequently. Patient instructed to cough and deep breath frequently. No sob noted. Room air sats 97%. No complaints at this time. Pleasant and cooperative with care. Will continue to monitor.
--- NOTE | 2016-03-01 12:52 | NUR ---
Patient to OR for colonoscopy. Transfered via stretcher accompanied by refrigerating technician. No complaints at this time. Pleasant and cooperative with care. Family went with patient to holding area.
--- NOTE | 2016-03-01 14:15 | NUR ---
PT RECEIVED TO PACU AROUSABLE, RESTING ON HER LEFT SIDE.
--- NOTE | 2016-03-01 14:29 | NUR ---
PT AWAKE AND CONVERSING. DENIES PAIN OR NAUSEA. DR MOJICA SPOKE WITH PT REGARDING EXAM FINDINGS AND FOLLOW-UP CARE. VSS.
--- NOTE | 2016-03-01 14:45 | NUR ---
Patient to room 304 from PACU. Trasported via stretcher accompanied by ATM TECHNICIAN. Patient ambulates from stretcher to bed with 1 person assistance. No complaints at this time. Family at bedside. Pleasant and cooperative with care. Will continue to monitor.
--- NOTE | 2016-03-01 14:51 | CONSULTATION REPORT ---
DATE OF CONSULTATION: 03/01/2016 CHIEF COMPLAINT: 1. Rectal bleeding HISTORY OF PRESENT ILLNESS: The patient is an 85-year-old woman presenting with a history of passing bright red blood per rectum. Note, the patient was placed on anticoagulants for DVT prevention after vertebral compression fracture. She only stopped these a day or so ago. MEDICAL/SURGICAL HISTORY: Medical history includes diabetes mellitus, hypertension, GERD, anemia, chronic diarrhea and back pain. Past surgeries: None. MEDICATIONS: 1. Prilosec 20 daily. 2. Gabapentin 100 mg b.i.d. 3. Cozaar 50 mg daily. 4. Simvastatin 20 mg every day. 5. Lopressor 25 daily. 6. Januvia 50 mg p.o. daily. 7. Citalopram 20 mg p.o. daily. 8. Xarelto 20 mg p.o. daily. ALLERGIES: 1. NONE TO MEDICATIONS. SOCIAL HISTORY: The patient is . 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 She quit tobacco about 40 years ago. Takes less than 1 drink per day. FAMILY HISTORY: Father had heart disease. Mother had lung cancer. She had a sister who of colon cancer at age 70. REVIEW OF SYSTEMS: A multipoint review of systems was obtained yesterday by Dr. Patel and is reviewed at this time. PHYSICAL EXAMINATION: GENERAL: The patient is alert and cooperative and conversant. HEENT: Her ears and nose demonstrated no gross external lesions. Eyes are equal. She is anicteric. NECK: Without palpable masses or thyromegaly. CHEST: Clear, without wheeze or rales. HEART: Regular, without murmur or gallop. ABDOMEN: Reveals no localized tenderness or organomegaly or ascites. EXTREMITIES: Symmetric. Extremities appears to move without restriction. LAB/IMAGING: Labs were reviewed. Her admission hematology showed she was anemic with a hemoglobin of 7.9 and hematocrit 24.7, white count of 7.5. IMPRESSION: 1. Gastrointestinal bleed 2. Anticoagulants PLAN: I recommend the patient undergo a colonoscopy. I talked about the nature of this procedure as well as the potential risks, such as that of perforation and bleeding. The patient has been prepped and would like to proceed as described to her.
--- NOTE | 2016-03-01 14:54 | OPERATIVE REPORT ---
DATE OF SURGERY: 03/01/2016 SURGEON: Edwin Jesus MD PREOPERATIVE DIAGNOSIS: 1. Rectal bleeding POSTOPERATIVE DIAGNOSES: 1. Anal mass 2. Diverticulosis PROCEDURE PERFORMED: 1. Colonoscopy with biopsy and injection hemostasis ANESTHESIA: Total IV general. INDICATIONS: The patient is an 85-year-old woman with rectal bleeding and diarrhea. SURGICAL TECHNIQUE: The patient was taken to the endoscopy suite where total IV general was administered and the patient was placed in the left lateral decubitus position. A well-lubricated colonoscope was advanced the length of the colon under direct vision. The cecum and ileocecal valves were visualized. Numerous diverticula and some fecaliths were seen in the left side of the colon, mostly in the sigmoid. On withdrawal, on retroflexed view, there was a hemorrhagic-appearing mass right at the anal verge. This was then palpated and seemed to be on the left side of the anal canal. Biopsies were obtained using the colonoscope. There was ongoing bleeding. This area was quite friable. It was injected using a scleral needle and a local anesthetic with 1:200,000 epinephrine. Some of this was also irrigated into the rectum and, once the epinephrine took hold, all bleeding ceased. This was also palpated with digital examination and was within easy reach of a finger. 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 This is likely to rebleed in the setting of anticoagulation.
--- NOTE | 2016-03-01 16:37 | NUR ---
In to see patient, removed compression wrap to right lower extremity after speaking with [facility] patients nurse laboratory manager Christina, she states that wound has been deemed "closed" and ask that I remove compression wrap, apply lotion to leg and then apply a Medigrip"F". Upon removal of wrap and adaptic, there was a small amount of serous drainage on dressing, and the wound appears open with 80% red wound base, and 20% other material, possibly dermal material. Wound gently cleansed,foam placed over top, and Medigrp "f" applied to both extremeties, as patient states she normally wears them on both legs. Pt states was told being discharged tommorrow, and agrees to call when she gets home to have a follow up appt at [facility] this week. Foam applied to ensure drainage control and promote healing until seen at clinic. RN informed.Will continue to monitor. removed old dressing, there was some serous drainage, small
--- NOTE | 2016-03-01 16:44 | Progress Note ---
Subjective General patient is seen at the bedside, still have recatl bleed, s/o colonoscopy found to have anorectal mass and possible bleeding from it,s/p epi injection, biopsy specimen sent, will moniotr H/H for now Constitutional Denies: Fever, Chills. Eyes Denies: Vision Change, Conjunctival Inflammation, Eyelid Inflammation, Redness. ENT Denies: Nasal Discharge, Nasal Congestion, Mouth Pain, Mouth Swelling, Throat Pain, Throat Swelling. Respiratory Denies: Cough, Dry, SOB w/exertion, Wheezing, Hemoptysis, Pleuritic Pain, Sputum. Cardiovascular Denies: Chest Pain, Palpitations, Orthopnea, PND, Edema. Gastrointestinal Hematochezia. Denies: Nausea, Vomiting, Abdominal Pain, Diarrhea, Constipation. Genitourinary Denies: Dysuria, Frequency, Incontinence, Hematuria. Musculoskeletal Denies: Back Pain. Skin Denies: Lesions, Jaundice, Bruising. Neurological Denies: Change in speech, Confusion. Physical Exam Vital Signs / I&Os Vital Signs Date Time Temp Pulse Resp B/P Pulse O2 O2 Flow FiO2 Ox Delivery Rate 03/01 1615 99 21 154/51 96 03/01 1545 102 27 180/76 98 03/01 1527 91 18 199/85 99 03/01 1512 87 20 183/79 95 03/01 1455 98.1 91 20 190/83 98 03/01 1435 86 16 166/74 100 03/01 1430 98.8 92 21 168/77 100 03/01 1425 85 14 164/63 99 03/01 1420 86 20 164/67 100 03/01 1415 84 17 131/90 100 03/01 1410 85 18 140/102 100 Nasal 2.0 Cannula 03/01 1405 83 20 100 Nasal 2.0 Cannula 03/01 1403 99.0 82 16 108/74 92 03/01 1116 85 20 177/70 98 Room Air 03/01 1011 97.5 86 22 184/76 98 Room Air 03/01 0940 97 21 183/66 98 Room Air 03/01 0831 90 18 170/84 99 Room Air 03/01 0735 87 19 168/68 94 Room Air 03/01 0730 Room Air 03/01 0644 168/68 03/01 0643 98.1 92 18 97 Room Air 03/01 0600 97.7 105 21 169/72 97 Room Air 03/01 0509 80 18 164/60 95 Room Air 03/01 0430 83 18 173/69 97 Room Air 03/01 0400 170/88 03/01 0345 178/72 03/01 0329 97.9 86 16 169/71 100 Room Air 03/01 0242 98.1 82 20 164/59 97 Room Air 03/01 0200 98.1 92 18 162/70 98 Room Air 03/01 0100 127/80 03/01 0041 97.9 82 18 168/64 97 03/01 0010 88 18 164/65 98 02/28 2346 97.9 86 18 151/47 99 Room Air 02/28 2200 97.9 86 16 151/58 99 Room Air 02/28 2100 173/60 02/28 2057 97.9 76 18 185/68 99 Room Air I&O 02/28 0800 02/28 1600 03/01 0000 Intake Total Output Total 350 Balance -350 General Appearance Alert, Oriented X3, No acute distress HEENT PERRLA, Moist mucous membranes Lungs Clear to auscultation Neck Normal exam, No JVD Cardiovascular Regular rate and rhythm, Normal S1 and S2 Abdomen Normal bowel sounds, Soft, No tenderness, No guarding Extremities No edema Neurological No lateralizing signs LAB Results Laboratory Tests 02/28 03/01 03/01 1715 0656 1502 Chemistry Plasma Sodium (136 - 145 mmol/L) 133 Plasma Potassium (3.5 - 5.1 mmol/L) 4.1 Plasma Chloride (98 - 107 mmol/L) 97 CO2 (Enzymatic) (21 - 32 mmol/L) 26 BUN (7 - 18 mg/dL) 9 Creatinine (0.6 - 1.3 mg/dL) 0.9 Est GFR ( Amer) (mL/min) >60 Est GFR (Non-Af Amer) (mL/min) >60 Glucose (70 - 110 mg/dL) 221 Plasma Calcium (8.5 - 10.1 mg/dL) 8.3 Hematology WBC (4.5 - 11.5 K/uL) 7.6 RBC (4.00 - 5.20 M/uL) 4.00 Hgb (12.0 - 16.0 gm/dL) 10.0 10.7 Hct (36.0 - 46.0 %) 31.0 33.8 MCV (80 - 100 fL) 78 MCH (26 - 34 pg) 25 RDW (11.6 - 14.8 %) 17.4 Neut % (Auto) (50 - 75 %) 75.4 Lymph % (Auto) (25 - 40 %) 14.3 [place] % (Auto) (3 - 14 %) 8.0 Eos % (Auto) (0 - 4 %) 2.1 Baso % (Auto) (0 - 2 %) 0.2 Plt Count, EDTA (150 - 400 K/uL) 325 PUBS MCHC (31 - 37 g/dL) 32 Urines Urine Color YELLOW Urine Appearance SL CLOUDY Urine pH (5.0 - 8.0) 6.0 Ur Specific [place] (1.010 - 1.030) 1.015 Urine Protein (NEGATIVE) 1+ Urine Ketones (NEGATIVE) NEGATIVE Urine Blood (NEGATIVE) 2+ Urine Nitrite (NEGATIVE) POSITIVE Urine Bilirubin (NEGATIVE) NEGATIVE Urine Urobilinogen (0.2 - 1.0 EU/dL) 0.2 Ur Leukocyte Esterase (NEGATIVE) POSITIVE Urine RBC (0 - 1 rbc/hpf) 25-50 Urine WBC (0 - 1 wbc/hpf) 10-15 Ur Epithelial Cells (0 - 5 EPI/hpf) 3-5 Urine Bacteria (NONE SEEN) MANY (4+) Urine Glucose (NEGATIVE) 2+ Urine Comment CULTURE INDICATED Microbiology Date/Time Procedure - Status Source Growth 03/01 99 Escherichia coli Shiga Toxins EIA - COLB STOOL 03/01 99 Campylobacter Culture - COLB STOOL 03/01 99 Salmonella/Shigella Culture - COLB STOOL 03/01 99 Clostridium difficile Toxin A & B - COLB STOOL 03/01 99 Specimen Source - COLB STOOL 03/01 99 Stool Leukocytes - COLB STOOL 03/01 0001 MRSA Screen - RECD NASAL 02/28 1715 Urine Culture - RES URINE CC GRAM NEGATIVE KNECHI Assessment and Plan Problem List 1. GI bleeding Plan s/p colonoscopy possible anorectal mass moniotr H/H transfuse as needed 2. ANTICOAGULATION Plan hold for now 3. Anemia Plan improved with PRBC transfusion
--- NOTE | 2016-03-01 16:59 | NUR ---
NUTRITION NOTE: Pt admitted with rectal bleed, GI bleed, anticoagulation and right hip pain. PT s/p colonoscopy today and now on cardiac diet. Pt ate sandwich after procedure with no problem. Pt has right leg wound and is being seen by wound care. RD to follow up with complete assessment per protocol.
--- NOTE | 2016-03-01 17:16 | NUR ---
Patient complained of headache. Tylenol 650 mg given PO for pain management. Denies nausea. Patient tolerating PO intake. Continues to have elevated BP. MD aware. No other complaints at this time. Pleasant and cooperative with care. Will continue to monitor.
--- NOTE | 2016-03-01 18:16 | NUR ---
Patient states head pain is better. Tylenol effective. Will continue to monitor.
--- NOTE | 2016-03-01 22:05 | NUR ---
PT ALER, ORIENTED,AND FORGETFUL. COOPERATIVE WITH CARE. NO DISTRESS NOTED. PT ABLE TO MAKE NEEDS KNOWN WITH CALL LIGHT. PT DENIES ANY CHEST PAIN, SOB, NAUSEA, AND VOMITING. PT DENIES ANY DIZZINESS, OR LIGHT HEADEDNESS. NO BLOOD NOTED ON PAD AT THIS TIME. STILL NEED STOOL SAMPLE, DOUGHNUT MAKER AWARE. THIS EVENING PT HAD 1 EPISODE OF CONFUSION. AFTER DOUGHNUT MAKER ASSISTED PT TO [facility] [place], PT DID NOT USE THE CALL LIGHT WHEN SHE WAS DONE. PT PULLED OUT IV AND STARTED TO STAND UP. THE PATIENT WAS ORIENTED TO SELF, PLACE, AND TIME, AND STATED, "I WAS A LITTLE CONFUSED FOR A MOMENT." SPEECH CLEAR, SENIOR COLDFUSION DEVELOPER EQUAL, NO FACIAL DROOP NOTED. PT EDUCATED SHOEMAKING FINISHER LIGHT, AND INFORMED THAT AT NIGHT A BED ALARM WILL BE USED. BED IN LOWEST POSITION, CALL LIGHT IN REACH, BED ALARM, WCTM.
--- NOTE | 2016-03-02 00:47 | NUR ---
DR. GRIFFIN PRESENT ON UNIT. RN INFORMED MD OF PT'S HEAD ACHE, AND ELEVATED BP OF 180/77. PLACED ORDER IN CPOE FOR BP MEDICATION. WCTM.
[2016-03-02 01:56] VITALS: BP 177/75
--- NOTE | 2016-03-02 02:19 | NUR ---
VITALS TAKEN @ 0200, BP 177/75, HR 95 SR NOTED, RR16, O2 SAT 96% TEMP 97.9. PT GIVEN ATACAND PER MD ORDER. BS CHECKED, 171 NOTED. PT OFFERED SNACK AND DECLINED AT THIS TIME. PT GIVEN SEVERAL SIPS OF WATER. NO OTHER COMPLAINTS AT THIS TIME. BED IN LOWEST POSITION, CALL LIGHT IN REACH, BED ALARM IS ON, WCTM.
[2016-03-02 07:54] VITALS: BP 155/96
--- NOTE | 2016-03-02 08:15 | NUR ---
Patient sitting up in chair at this time. 1 person SBA uses walker for support. Patient eating breakfast. Tolerating good PO intake. Denies pain and nausea. Patient instructed to cough and deep breath frequently. No sob noted. Room air sats 96%. No signs of bleeding noted at this time. Urine yellow and clear. No complaints at this time. Pleasant and cooperative with care. Will continue to monitor.
[2016-03-02 11:19] VITALS: BP 193/78
--- NOTE | 2016-03-02 13:47 | NUR ---
Patient up to bathroom one person SBA using walker. Med bowel movement noted with old blood clots. No complaints at this time. Pleasant and cooperative with care. Will continue to monitor.
[2016-03-02 14:37] VITALS: BP 188/88
--- NOTE | 2016-03-02 14:45 | NUR ---
Patient continues to have elevated Blood pressure. New order started. Metoprolol 25 mg give PO. No complaints at this time. Pleasant and cooperative with care. Will continue to monitor.
--- NOTE | 2016-03-02 15:48 | NUR ---
NUTRITION ASSESSMENT: S: Pt admitted with left leg infection. PMH of hypothyroidism, PTSD, chronic kidney disease, GERD, anxiety, obesity, HTN, thracic, aortic aneurysm, insomnia, MRSA, depression, pepetic ucle disease, incontinence. Pt NPO today for I and D of her left leg wound. Pt s/p knee replacement prior to admission. Pt does not have teeth or dentures and has diffuculty chewing. O: Diet rx: NPO (previously on CCD) puree Allergy: soy Wts: 82.6 kg Ht: 64" IBW: 56-62 kg BMI: 31.5 ABW: ~68 kg Est Kcals: ~5359-4388 kcals per day Est Pro: ~70-80 g per day Est Fluids: ~2.0 L per day Meds Incl: vanco, carvedilol, gabapentin, med dose SSI, linezolid, protonix, prazosin, thyroid rx, trazedone, venlafaxine HCL, see eMar for complete list. Labs Incl: (03/02) BUN 17, Creat 0.9 Skin: Niranjan Score 16; skin fragile, waffle overlay in place Accuchecks: 80-103 A: Pt NPO for I&D. Rec start diet when able to have solid foods. Rev'd meds and labs. Skin fragiel pt with increased healing needs. P: Resume previous diet when medically able, RD to follow up and monitor nutrition indices prn/protocol
[2016-03-02 18:30] VITALS: BP 162/73
[2016-03-02 22:30] VITALS: BP 172/77
--- NOTE | 2016-03-02 22:56 | Progress Note ---
Subjective General Patient is seen at the bedside, paased clots in stool, H/H is stable, BP uncontrolled Constitutional Denies: Fever, Chills, Sweats, Weakness. Eyes Denies: Vision Change. Respiratory Hemoptysis. Denies: Cough, Dry, SOB w/exertion, Wheezing, Pleuritic Pain. Cardiovascular Denies: Chest Pain, Palpitations, Orthopnea, PND, Edema. Gastrointestinal Denies: Nausea, Vomiting, Abdominal Pain, Diarrhea, Constipation, Melena, Hematochezia. Genitourinary Denies: Dysuria, Frequency, Incontinence. Neurological Denies: Weakness, Numbness, Incoordination, Change in speech, Confusion, Seizures. Physical Exam Vital Signs / I&Os Vital Signs Date Time Temp Pulse Resp B/P Pulse O2 O2 Flow FiO2 Ox Delivery Rate 03/02 2230 98.2 75 20 172/77 9 Room Air 0.0 03/02 1830 98.4 89 20 162/73 98 03/02 1437 97.9 96 20 188/88 99 03/02 1119 97.5 90 19 193/78 99 Room Air 0.0 03/02 0754 97.9 81 16 155/96 96 Room Air 0.0 03/02 0745 Room Air 03/02 0156 97.9 95 16 177/75 96 Room Air 03/01 2319 98.4 89 14 180/77 97 Room Air I&O 03/01 0800 03/01 1600 03/02 0000 Intake Total 1362 868 751 Output Total 1350 1375 975 Balance 12 -507 -224 General Appearance Alert, Oriented X3, No acute distress HEENT Normal exam, PERRLA, Moist mucous membranes Lungs Clear to auscultation Cardiovascular Regular rate and rhythm, Normal S1 and S2 Abdomen Normal bowel sounds, Soft, No tenderness, No guarding Extremities No edema Neurological No lateralizing signs LAB Results Laboratory Tests 03/02 03/02 0500 1749 Chemistry Plasma Sodium (136 - 145 mmol/L) 132 Plasma Potassium (3.5 - 5.1 mmol/L) 3.8 Plasma Chloride (98 - 107 mmol/L) 99 CO2 (Enzymatic) (21 - 32 mmol/L) 27 BUN (7 - 18 mg/dL) 6 Creatinine (0.6 - 1.3 mg/dL) 0.9 Est GFR ( Amer) (mL/min) >60 Est GFR (Non-Af Amer) (mL/min) >60 Glucose (70 - 110 mg/dL) 199 Plasma Calcium (8.5 - 10.1 mg/dL) 8.1 Hematology WBC (4.5 - 11.5 K/uL) 6.7 RBC (4.00 - 5.20 M/uL) 3.93 Hgb (12.0 - 16.0 gm/dL) 9.7 9.8 Hct (36.0 - 46.0 %) 30.4 30.9 MCV (80 - 100 fL) 77 MCH (26 - 34 pg) 25 RDW (11.6 - 14.8 %) 17.9 Neut % (Auto) (50 - 75 %) 69.3 Lymph % (Auto) (25 - 40 %) 16.0 [place] % (Auto) (3 - 14 %) 9.0 Eos % (Auto) (0 - 4 %) 4.4 Baso % (Auto) (0 - 2 %) 1.3 Plt Count, EDTA (150 - 400 K/uL) 317 PUBS MCHC (31 - 37 g/dL) 32 Assessment and Plan Problem List 1. GI bleeding Plan from anorectal mass H/H stable 2. Hypertension Status Chronic Onset Date Unknown Plan uncontrolled start home meds 3. Diabetes mellitus Status Chronic Onset Date Unknown Plan uncntrolled, satrt home diabetes meds 4. Chronic anticoagulation Status Chronic Onset Date Unknown Plan stopped 5. Anemia Plan will start ferrous sulfate E&M Codes Rounding: Inpt-Moderate/39699
--- NOTE | 2016-03-02 23:57 | NUR ---
WATCHING TV, DENIES ANY DISCOMFORT. MEPILEX R LOWER LEG INTACT. HR 79.
[2016-03-03 01:56] VITALS: BP 159/59
--- NOTE | 2016-03-03 06:04 | NUR ---
USING CALL LIGHT AT TIMES FOR ASSISTANCE, AMBULATES WITH WALKER TO TOILET, GAIT STEADY. DENIES ANY DISCOMFORT.
[2016-03-03 07:09] VITALS: BP 166/78
--- NOTE | 2016-03-03 08:12 | NUR ---
Patient sitting up in chair at this time. Up to chair SBA uses walker for support. Patient eating breakfast. Tolerating good PO intake. Denies pain and nausea. Patient instructed to cough and deep breath frequently. No sob noted. Room air sats 94%. No signs of bleeding noted at this time. Urine yellow and clear. Patient hoping to discharge home today. Patient states she lives in a assisted living place in [place]. No complaints at this time. Pleasant and cooperative with care. Will continue to monitor.
--- NOTE | 2016-03-03 10:43 | NUR ---
NUTRITION: Pt states that she does not follow any specific diet at home, she just eats what [facility] offers but she does select a "sugar free" dessert when she can. She checks her blood sugars in the morning but not able to tell this RD what her blood sugars have been running. Blood sugars have been running ~156-305. Pts sister in law present with her this am, appears supportive and able to help provide hx and more details about her living situation and her diabetes management. Per nsg, pt to d/c back to [facility] with home health. Though pt states no special diet at her living facility, encouarged pt to watch her portions and "starches", pt appeared to understand. RD avail for further consult if desired.
[2016-03-03 11:13] VITALS: BP 181/70
--- NOTE | 2016-03-03 14:10 | NUR ---
In to see patient, foam on RLE wound and bilat Medigrip "F"s still in place. Plan is for patient to go to SNF, scheduled follow up appt at [facility] for next at 10:00am, SNF will change foam dressing q 3-5 days or sooner prn, given contact information, and appt date and time given to patients "clamp truck driver" who was in room with patient. All questions answered, will continue to monitor.
[2016-03-03 14:40] VITALS: BP 173/73
--- NOTE | 2016-03-03 16:53 | Progress Note ---
Subjective General Patient is seen at the bedside denies any more episodes of lower gI bleed Constitutional Denies: Fever, Chills, Sweats, Weakness. Eyes Denies: Vision Change, Conjunctival Inflammation, Eyelid Inflammation, Redness. Respiratory Denies: Cough, Dry, SOB w/exertion, Wheezing, Hemoptysis. Cardiovascular Denies: Chest Pain, Palpitations, Orthopnea, PND, Edema. Gastrointestinal Denies: Nausea, Vomiting, Abdominal Pain, Diarrhea, Constipation. Genitourinary Denies: Dysuria, Frequency, Incontinence. Musculoskeletal Denies: Back Pain. Neurological Denies: Weakness, Numbness, Change in speech, Confusion (denies any headache). Physical Exam Vital Signs / I&Os Vital Signs Date Time Temp Pulse Resp B/P Pulse O2 O2 Flow FiO2 Ox Delivery Rate 03/03 1440 98.1 72 18 173/73 98 03/03 1113 97.3 82 18 181/70 99 Room Air 03/03 0730 Room Air 03/03 0709 97.7 80 16 166/78 94 Room Air 03/03 0156 97.7 76 14 159/59 97 Room Air 0.0 03/02 2230 98.2 75 20 172/77 9 Room Air 0.0 03/02 1830 98.4 89 20 162/73 98 I&O 03/02 0800 03/02 1600 03/03 0000 Intake Total 1780 1405 Output Total 457 066 1033 Balance -450 905 -395 General Appearance Alert, Oriented X3, No acute distress HEENT Normal exam, Atraumatic, PERRLA, Moist mucous membranes Lungs Clear to auscultation, Normal air movement Neck Normal exam, No JVD Cardiovascular Regular rate and rhythm, Normal S1 and S2 Abdomen Normal bowel sounds, Soft, No tenderness, No guarding Extremities No edema Neurological No lateralizing signs LAB Results Laboratory Tests 03/02 03/03 03/03 1749 0425 1420 Chemistry Hemoglobin A1c % (4.5 - 6.2 %) 8.1 Hematology WBC (4.5 - 11.5 K/uL) 8.1 RBC (4.00 - 5.20 M/uL) 3.86 Hgb (12.0 - 16.0 gm/dL) 9.8 9.5 Hct (36.0 - 46.0 %) 30.9 29.7 MCV (80 - 100 fL) 77 MCH (26 - 34 pg) 25 RDW (11.6 - 14.8 %) 17.8 Neut % (Auto) (50 - 75 %) 67.3 Lymph % (Auto) (25 - 40 %) 17.3 [place] % (Auto) (3 - 14 %) 9.7 Eos % (Auto) (0 - 4 %) 5.1 Baso % (Auto) (0 - 2 %) 0.6 Plt Count, EDTA (150 - 400 K/uL) 307 PUBS MCHC (31 - 37 g/dL) 32 Assessment and Plan Problem List 1. GI bleeding Plan no furthur episodes of bleeding H/H stable colonoscopy consisitent with anorectal mass 2. ANTICOAGULATION Plan stopped 3. Hypertension Status Chronic Onset Date Unknown Plan uncontrolled started on home dose of metoprolol started on candesartan last night give clonidien 0.2 mg once in view of pretty high BP monitor BP 4. Anemia Plan Iron deficiency anemia start ferrous sulfate 325mg po BID 5. Diabetes mellitus Status Chronic Onset Date Unknown Plan BS acceptable, starte don home dose of insulin E&M Codes Rounding: Inpt-Moderate/02772
--- NOTE | 2016-03-03 17:10 | NUR ---
Patient sitting up in chair eating dinner at this time. Denies pain and nausea. BS 71. No sliding scale coverage needed at this time. Patient is going to be discharging to [facility] tomorrow for med management. Patient up independently in room and uses walker for support. Steady on her feet. Will use call light. No complaints at this time. Pleasant and cooperative with care. Will continue to monitor.
[2016-03-03 20:13] VITALS: BP 147/66
--- NOTE | 2016-03-03 23:40 | NUR ---
PT RESTING IN BED, NO DISTRESS NOTED. PT ALERT AND ORIENTED, COOPERATIVE WITH CARE. PT DENIES ANY CHEST PAIN, SOB, NAUSEA, AND VOMITING. PT IS STABLE ON HER FEET AND USES THE FWW. VSS. NO SIGNS OF BLEEDING NOTED. HS ACCUCHECK WAS 187, HS COVERAGE GIVEN, ALONG WITH HS SNACK. IV INTACT IN THE LAC, WNL, FLUSHES WELL. RLL WOUND DRESSING C/D/I. WARM BLANKET GIVEN. NO OTHER COMPLAINTS. CALL LIGHT IN REACH, BED IN LOWEST POSITION, WCTM.
[2016-03-04 02:57] VITALS: BP 156/54
[2016-03-04 06:47] VITALS: BP 151/53
--- NOTE | 2016-03-04 07:49 | NUR ---
PATIENT UP IN CHAIR FOR BREAKFAST. A AND O X 4. RA, LUNGS CLEAR. BT'S + X 4. SKIN INTACT T/O. WEARING COMPRESSION STOCKINGS TO BLE'S. NO EDEMA. DENIES PAIN.
--- NOTE | 2016-03-04 09:47 | NUR ---
In to see patient who is being discharged today to SNF, foam dressing on right lower leg examined and no drainage seen, pt has appt set up for next week. All questions answered, RN updated will continue to monitor.
--- NOTE | 2016-03-04 10:18 | NUR ---
NUTRITION FOLLOW UP NOTE: RD here to f/u, pt to d/c to SNF today on carb consistent diet. RD avail for further consult if desired prior to d/c.
[2016-03-04 10:33] VITALS: BP 137/50
[2016-03-04] MEDS ORDERED: FERROUS SULFAT324 M1 PO (10:54)
[2016-03-04] MEDS ORDERED: ATORVASTATIN CA20 MG PO (11:03)
[2016-03-04] MEDS ORDERED: TYLENOL325 MG PO (11:07)
[2016-03-04] MEDS ORDERED: BACTRIM1 TAB PO (11:13)
--- NOTE | 2016-03-04 11:21 | Provider's Discharge Care Plan ---
Problem, Goal, Plan Problem List 1. Mass of anus Instructions: On colonoscopy you were found to anorectal mass biopsy report pending, you need to follow up with 2. GI bleeding Instructions: You had rectal bleeding form anorectal mass which had active bleeding site, which is cauterized, there is a chance you may bleed again from it, if you have bleeding again contact your PCP 3. Chronic anticoagulation Instructions: Your anticoagulation therapy has been stopped in view of rectal bleed
[2016-03-04] MEDS ORDERED: GLIPIZIDE5 MG PO (11:23)
--- NOTE | 2016-03-04 13:19 | NUR ---
DC'D IV TO LAC, HEMOSTASIS ACHIEVED WITH 5 MINUTES MANUAL PRESSURE, GAUZE AND TAPE APPLIED. DC INSTRUCTIONS GIVEN TO PATIENT AND SISTER IN LAW WHO IS TRANSPORTING TO [facility]. REPORT CALLED TO [facility] AT [facility]. EXTENDER ESCORTED OUT OF FACILITY AND SISTER IN LAW TRANSFERRED TO SNF IN PRIVATE CAR.
--- NOTE | 2016-03-08 07:30 | DISCHARGE SUMMARY ---
ADMIT DATE: 02/29/2016 DISCHARGE DATE: 03/04/2016 ADMITTING DIAGNOSES: 1. Gastrointestinal bleeding 2. Anemia 3. Chronic anticoagulation 4. Vertebral compression fracture 5. Hypertension 6. Diabetes mellitus 7. Gastroesophageal reflux disease 8. Chronic diarrhea 9. Urinary tract infection DISCHARGE DIAGNOSES: 1. Gastrointestinal bleed secondary to bleeding from an anorectal mass 2. Urinary tract infection with Klebsiella pneumoniae BRIEF HISTORY: An 85-year-old white female with significant past medical history of diabetes mellitus, vertebral compression fracture, hypertension, chronic back pain, chronic anticoagulation, who presented to [facility] emergency department secondary to the complaint of bright red blood per rectum. Her ED evaluation was consistent with rectal bleeding in the setting of chronic anticoagulation and anemia, urinary tract infection. Laboratory evaluation at the time of admission was consistent with anemia, with hemoglobin of 7.9 and hematocrit of 24.7. HOSPITAL COURSE: An 85-year-old female who was on chronic anticoagulation, admitted with bright red blood per rectum, found to have low hemoglobin and hematocrit. She received 2 units of blood transfusion and had colonoscopy done by Dr. Jesus. On colonoscopy , she was found to have anal mass which was bleeding which was cauterization with epinephrine. The patient improved. Her bleeding has stopped. She was eventually discharged to a SNF in a stable condition. PHYSICAL EXAMINATION: VITAL SIGNS: Blood pressure 137/50, pulse rate 66 per minute, temperature 97.9, respiratory rate 19 per minute, saturations 98%. GENERAL: She is alert, awake, oriented x3. HEENT: Head atraumatic, normocephalic. Eyes: Pupils are equally reactive to light. CHEST: Bilaterally clear, breath sounds equal. HEART: S1, S2 normal. ABDOMEN: Soft, nontender. Bowel sounds present. EXTREMITIES: No edema. LAB/IMAGING: WBC 8.1, hemoglobin 9.7, hematocrit 29.7, neutrophils 67. Sodium 132, potassium 3.8, chloride 99, CO2 of 27, BUN 6, creatinine 0.9, GFR more than 60. Glucose 199. Hemoglobin A1c 8.1. Plasma calcium 8.1. Iron 20, TIBC 331, iron saturation 6, total bilirubin 0.3, AST 18, ALT 15, alkaline phosphatase 91, total protein 7.9, albumin 3, amylase 33, lipase 236. Vitamin B12 of 361, folate 8.6, INR 1.4, APTT of 30. Urine culture is positive for Klebsiella pneumoniae. Imaging: Hip/pelvis x-ray: Negative pelvis and right hip. Colonoscopy: Postoperative diagnosis: Anal mass, diverticulosis. DISCHARGE INSTRUCTIONS/MEDICATIONS: Instructions: On colonoscopy she was found to have anal mass. Biopsy report pending. She needs to follow up with Dr. Jesus for further evaluation. You had rectal bleeding from anorectal mass, which had active bleeding site, which was cauterized. There is a chance you may bleed again from it. If you have bleeding again, contact your PCP. Your anticoagulation therapy has been stopped in view of rectal bleed.
== END 2016-03-04 13:15 | DRG 394 ==
LOC: ED SRH 16:11 → TRANS SRH 18:49 → CC SRH 21:32
PROVIDERS: Surgery; ADMIT Internal Medicine
PROC: 0DBQ8ZX Excision of Anus, Via Natural or Artificial Opening Endoscopic, Diagnostic (ICD-10-PCS; principal; 2016-03-01 16:15)
DX: K62.9 Disease of anus and rectum, unspecified (principal); K62.5 Hemorrhage of anus and rectum; D68.32 Hemorrhagic disorder due to extrinsic circulating anticoagulants; N39.0 Urinary tract infection, site not specified; T45.515A Adverse effect of anticoagulants, initial encounter

== ENCOUNTER 2016-03-14 16:24 | Emergency (ER) | payer OTHER ==
[~2016-03-14 16:24] MED LIST: ACIDOPHILUS PO; ASPIRIN81 M1 PO; ATORVASTATIN CA20 MG PO; BACTRIM1 TAB PO; CITALOPRAM HYDR20 MG PO; COZAAR50 MG PO; ESCITALOPRAM OXA5 MG PO; FERROUS SULFAT324 M1 PO; GABAPENTIN100 MG PO; GLIPIZIDE5 MG PO; JANUVIA50 MG PO; LANTUS SOL100 UNITS/ SC; LISINOPRIL10 MG PO; LOPRESSOR25 MG PO; OMEPRAZOLE20 MG PO; TYLENOL325 MG PO; XARELTO10 MG PO; ZOCOR20 MG PO
--- NOTE | 2016-03-14 19:51 | ED CLINICAL REPORT ---
Clinical Report - Physicians/Mid Levels [facility] [address] [place] [address] 03/14/2016 16:25 Patient: YOU CASTRO Time Seen: 17:01 Mar 14 2016. Arrived- By private vehicle. Historian- patient. Note: (( Pt just released from here with GI Bleed, sts started again today).). CPT: ER phys charges level 4 (#[id number]). HISTORY OF PRESENT ILLNESS Chief Complaint: DARK/TARRY STOOLS. This started today and has been moderate. (Patient was admitted February 28 of this year with rectal bleeding. Subsequently had colonoscopy by Dr. Crespo which showed a rectal mass that was bleeding. This rectal mass was cauterized with epinephrine. The patient's anticoagulation medication xarelto was stopped. Biopsy of the mass is still pending pathology. Family just reported that a second bx was obtained 4 days ago due to inconclusive initial bx.). Is still present. The patient has had dark stools but not had rectal pain. She has had moderate rectal bleeding described as bright red blood on toilet paper and blood mixed with stool (today). No nausea, vomiting, diarrhea or abdominal pain. Similar symptoms previously: Worse. Diagnosis: (Rectal bleeding due to mass.). Recent medical care: The patient was seen recently at this facility. REVIEW OF SYSTEMS No dizziness, fainting episodes, weakness, fever or blurred vision. No sore throat, epistaxis, cough, difficulty breathing or chest pain. No hematuria, skin rash, enlarged lymph nodes or chills. PAST HISTORY GI Bleeding. Labyrinthitis. Arthritis. Anemia. Hyperlipidemia. Hypertension. Glaucoma. Vertigo. Diabetes Mellitus. Breast surgery. Knee. SOCIAL HISTORY Former smoker. Occasional alcohol use. No drug use. ADDITIONAL NOTES The nursing notes have been reviewed. PHYSICAL EXAM Vital Signs: 03/14/2016 16:43 BP: 203/100. HR: 96. RR: 18. O2 saturation: 98%. Temp: 97.8 F. Appearance: Alert. No acute distress. Anxious. Eyes: Pupils equal, round and reactive to light. Eyes normal inspection. No pale conjunctivae. ENT: Pharynx normal. Neck: Normal inspection. CVS: Normal heart rate and rhythm. Heart sounds normal. Pulses normal. Respiratory: No respiratory distress. Breath sounds normal. Abdomen: Soft and nontender. Back: Normal inspection. Rectal: Abnormal digital exam: moderate tenderness; an intraluminal mass (thickened sphincter, left side.). Strongly heme-positive stool; blood streaks present in the stool; hemoccult quality control auditor check passed. (POC test reference range: negative). Skin: Skin warm. Normal skin color. No rash. Extremities: Extremities exhibit normal ROM. No lower extremity edema. Neuro: Oriented X 3. No motor deficit. No sensory deficit. LABS, X-RAYS, AND EKG Laboratory Tests: CBC w Diff: (TWIN: 03/14/2016 17:05) ( MsgRcvd 03/14/2016 17:15) Final results Test Result Flag Units (Reference) WHITE BLOOD COUNT 8.6 K/uL (4.5-11.5) RED BLOOD COUNT 4.12 M/uL (4.00-5.20) HEMOGLOBIN 10.2 L gm/dL (12.0-16.0) HEMATOCRIT 31.5 L % (36.0-46.0) MEAN CELL VOLUME 76 L fL (80-100) MEAN CORPUSCULAR HGB 25 L pg (26-34) MEAN CORPUSCULAR HGB CONC 33 g/dL (31-37) RED CELL DISTRIBUTION WIDTH 18.7 H % (11.6-14.8) PLATELET COUNT 395 K/uL (150-400) NEUTROPHIL % 71.3 % (50-75) LYMPH % 18.1 L % (25-40) MONO % 7.2 % (3-14) EOSINOPHIL % 2.7 % (0-4) BASOPHIL % 0.7 % (0-2) CMP: (TWIN: 03/14/2016 17:05) ( MsgRcvd 03/14/2016 17:32) Final results Test Result Flag Units (Reference) GLUCOSE 371 H mg/dL (70-110) BUN 6 L mg/dL (7-18) CREATININE 1.1 mg/dL (0.6-1.3) Estimated GFR 50.42 mL/min Estimated GFR- >60 mL/min Note: Persistent reduction over 3 months in eGFR<60 mL/min/1.73 m2 defines CKD. Patients with eGFR values>=60 mL/min/1.73 m2 may also have CKD if evidence ofpersistent proteinuria. Additional information may be foundat www.kidney.org. SODIUM 132 L mmol/L (136-145) POTASSIUM 3.9 mmol/L (3.5-5.1) CHLORIDE 95 L mmol/L (98-107) CARBON DIOXIDE 29 mmol/L (21-32) CALCIUM 8.2 L mg/dL (8.5-10.1) TOTAL PROTEIN 7.8 g/dL (6.4-8.2) ALBUMIN 3.0 L g/dL (3.3-5.0) BILIRUBIN, TOTAL 0.4 mg/dL (0.0-1.0) ALKALINE PHOSPHATASE 98 U/L (46-116) AST (SGOT) 17 U/L (15-37) ALT (SGPT) 19 U/L (12-78) . PROGRESS AND PROCEDURES Course of Care: discussed with Dr. Crespo and he recommended follow-up in the office in a couple of days for recheck of HCT. That she could follow up with her PCP for this. The second biopsy is not back at this point. That he would expect her to slowly continue to bleed from this mass until therapy determined by biopsy results could be started. Discussed case with patient's primary care provider, (Edin). Reviewed test results. Agreed upon treatment plan. Health care provider will see patient in office. Patient/family counseled. Disposition: Discharged. Condition: stable. CLINICAL IMPRESSION Rectal bleed consisting of bright red blood (Due to rectal mass.). Mild anemia due to rectal bleeding. INSTRUCTIONS No strenuous activity. Rest. Drink plenty of fluids. (Get iron supplements started. Avoid any type of aspirin.). Warnings: Further evaluation is necessary. GENERAL WARNINGS: Return or contact your physician immediately if your condition worsens or changes unexpectedly, if not improving as expected, or if other problems arise. Your Current Medications: CONTINUE TAKING THE FOLLOWING MEDICATIONS: Acidophilus Oral. Antivert Oral : Tablet 25 mg, prn. ASA Oral. Aspirin Oral : Tablet 81 mg, prn. Escitalopram Oxalate Oral : Tablet 5 mg, 2x a day. Gabapentin Oral. Glipizide Oral : Tablet 10 mg, 1 tablet 2x a day. Insulin Lantus 28* : 28 Units at bedtime. Januvia Oral : Tablet 50 mg, 1 tablet daily. Januvia Oral : Tablet 100 mg, 1 tablet. Lisinopril Oral : Tablet 20 mg, 1 tablet daily. Lovastatin Oral. Metoprolol Tartrate Oral. Omeprazole Oral : Tablet Delayed Release 20 mg, 1 tablet 2x a day. Simvastatin Oral : Tablet 20 mg, 1 tablet daily. Xarelto Oral. Follow-up: Follow up with your doctor in three days. Call for an appointment. Reason for referral: Re-check CBC due to bleeding. Understanding of the discharge instructions verbalized by patient and family. Follow-up with: Edwin Jesus MD, General Surgeon, , [facility], [address] [place] [address] Follow up as scheduled. (Electronically signed by Sage Siddiqui MD 03/15/2016 11:22)
--- NOTE | 2016-03-14 19:51 | ED CLINICAL REPORT ---
Clinical Report - Physicians/Mid Levels [facility] [address] [place] [address] 03/14/2016 16:25 Patient: YOU CASTRO Time Seen: 17:01 Mar 14 2016. Arrived- By private vehicle. Historian- patient. Note: (( Pt just released from here with GI Bleed, sts started again today).). CPT: ER phys charges level 4 (#[id number]). HISTORY OF PRESENT ILLNESS Chief Complaint: DARK/TARRY STOOLS. This started today and has been moderate. (Patient was admitted February 28 of this year with rectal bleeding. Subsequently had colonoscopy by Dr. Crespo which showed a rectal mass that was bleeding. This rectal mass was cauterized with epinephrine. The patient's anticoagulation medication xarelto was stopped. Biopsy of the mass is still pending pathology. Family just reported that a second bx was obtained 4 days ago due to inconclusive initial bx.). Is still present. The patient has had dark stools but not had rectal pain. She has had moderate rectal bleeding described as bright red blood on toilet paper and blood mixed with stool (today). No nausea, vomiting, diarrhea or abdominal pain. Similar symptoms previously: Worse. Diagnosis: (Rectal bleeding due to mass.). Recent medical care: The patient was seen recently at this facility. REVIEW OF SYSTEMS No dizziness, fainting episodes, weakness, fever or blurred vision. No sore throat, epistaxis, cough, difficulty breathing or chest pain. No hematuria, skin rash, enlarged lymph nodes or chills. PAST HISTORY GI Bleeding. Labyrinthitis. Arthritis. Anemia. Hyperlipidemia. Hypertension. Glaucoma. Vertigo. Diabetes Mellitus. Breast surgery. Knee. SOCIAL HISTORY Former smoker. Occasional alcohol use. No drug use. ADDITIONAL NOTES The nursing notes have been reviewed. PHYSICAL EXAM Vital Signs: 03/14/2016 16:43 BP: 203/100. HR: 96. RR: 18. O2 saturation: 98%. Temp: 97.8 F. Appearance: Alert. No acute distress. Anxious. Eyes: Pupils equal, round and reactive to light. Eyes normal inspection. No pale conjunctivae. ENT: Pharynx normal. Neck: Normal inspection. CVS: Normal heart rate and rhythm. Heart sounds normal. Pulses normal. Respiratory: No respiratory distress. Breath sounds normal. Abdomen: Soft and nontender. Back: Normal inspection. Rectal: Abnormal digital exam: moderate tenderness; an intraluminal mass (thickened sphincter, left side.). Strongly heme-positive stool; blood streaks present in the stool; hemoccult quality assurance engineer check passed. (POC test reference range: negative). Skin: Skin warm. Normal skin color. No rash. Extremities: Extremities exhibit normal ROM. No lower extremity edema. Neuro: Oriented X 3. No motor deficit. No sensory deficit. LABS, X-RAYS, AND EKG Laboratory Tests: CBC w Diff: (TWIN: 03/14/2016 17:05) ( MsgRcvd 03/14/2016 17:15) Final results Test Result Flag Units (Reference) WHITE BLOOD COUNT 8.6 K/uL (4.5-11.5) RED BLOOD COUNT 4.12 M/uL (4.00-5.20) HEMOGLOBIN 10.2 L gm/dL (12.0-16.0) HEMATOCRIT 31.5 L % (36.0-46.0) MEAN CELL VOLUME 76 L fL (80-100) MEAN CORPUSCULAR HGB 25 L pg (26-34) MEAN CORPUSCULAR HGB CONC 33 g/dL (31-37) RED CELL DISTRIBUTION WIDTH 18.7 H % (11.6-14.8) PLATELET COUNT 395 K/uL (150-400) NEUTROPHIL % 71.3 % (50-75) LYMPH % 18.1 L % (25-40) MONO % 7.2 % (3-14) EOSINOPHIL % 2.7 % (0-4) BASOPHIL % 0.7 % (0-2) CMP: (TWIN: 03/14/2016 17:05) ( MsgRcvd 03/14/2016 17:32) Final results Test Result Flag Units (Reference) GLUCOSE 371 H mg/dL (70-110) BUN 6 L mg/dL (7-18) CREATININE 1.1 mg/dL (0.6-1.3) Estimated GFR 50.42 mL/min Estimated GFR- >60 mL/min Note: Persistent reduction over 3 months in eGFR<60 mL/min/1.73 m2 defines CKD. Patients with eGFR values>=60 mL/min/1.73 m2 may also have CKD if evidence ofpersistent proteinuria. Additional information may be foundat www.kidney.org. SODIUM 132 L mmol/L (136-145) POTASSIUM 3.9 mmol/L (3.5-5.1) CHLORIDE 95 L mmol/L (98-107) CARBON DIOXIDE 29 mmol/L (21-32) CALCIUM 8.2 L mg/dL (8.5-10.1) TOTAL PROTEIN 7.8 g/dL (6.4-8.2) ALBUMIN 3.0 L g/dL (3.3-5.0) BILIRUBIN, TOTAL 0.4 mg/dL (0.0-1.0) ALKALINE PHOSPHATASE 98 U/L (46-116) AST (SGOT) 17 U/L (15-37) ALT (SGPT) 19 U/L (12-78) . PROGRESS AND PROCEDURES Course of Care: discussed with Dr. Crespo and he recommended follow-up in the office in a couple of days for recheck of HCT. That she could follow up with her PCP for this. The second biopsy is not back at this point. That he would expect her to slowly continue to bleed from this mass until therapy determined by biopsy results could be started. Discussed case with patient's primary care provider, (Edin). Reviewed test results. Agreed upon treatment plan. Health care provider will see patient in office. Patient/family counseled. Disposition: Discharged. Condition: stable. CLINICAL IMPRESSION Rectal bleed consisting of bright red blood (Due to rectal mass.). Mild anemia due to rectal bleeding. INSTRUCTIONS No strenuous activity. Rest. Drink plenty of fluids. (Get iron supplements started. Avoid any type of aspirin.). Warnings: Further evaluation is necessary. GENERAL WARNINGS: Return or contact your physician immediately if your condition worsens or changes unexpectedly, if not improving as expected, or if other problems arise. Your Current Medications: CONTINUE TAKING THE FOLLOWING MEDICATIONS: Acidophilus Oral. Antivert Oral : Tablet 25 mg, prn. ASA Oral. Aspirin Oral : Tablet 81 mg, prn. Escitalopram Oxalate Oral : Tablet 5 mg, 2x a day. Gabapentin Oral. Glipizide Oral : Tablet 10 mg, 1 tablet 2x a day. Insulin Lantus 28* : 28 Units at bedtime. Januvia Oral : Tablet 50 mg, 1 tablet daily. Januvia Oral : Tablet 100 mg, 1 tablet. Lisinopril Oral : Tablet 20 mg, 1 tablet daily. Lovastatin Oral. Metoprolol Tartrate Oral. Omeprazole Oral : Tablet Delayed Release 20 mg, 1 tablet 2x a day. Simvastatin Oral : Tablet 20 mg, 1 tablet daily. Xarelto Oral. Follow-up: Follow up with your doctor in three days. Call for an appointment. Reason for referral: Re-check CBC due to bleeding. Understanding of the discharge instructions verbalized by patient and family. Follow-up with: Edwin Jesus MD, General Surgeon, , [facility], [address] [place] [address] Follow up as scheduled. (Electronically signed by Sage Siddiqui MD 03/15/2016 11:22)
--- NOTE | 2016-03-14 19:51 | ED ORDER SUMMARY ---
..... Patient: YOU CASTRO OrderSheet [facility] VisitID: [id number] [address] [place] [address] 85y, F Registration Date/Time: 03/14/2016 ORDER SHEET Weight: 90.7 kg Allergies: Sulfa Antibiotics GENERAL ORDERS: CBC w Diff Urgent (17:03/14/2016 EBonham per protocol) (Ack 17:09 LMuller) (17:10 LMuller) CMP Urgent (17:03/14/2016 EBonham per protocol) (Ack 17:09 LMuller) (17:10 LMuller) MEDICATION ORDERS: IV FLUIDS: ORDER SHEET NOTES: [Electronically signed by Dania Best R.N. (:03/14/2016)] [Electronically signed by Sage Siddiqui MD (:03/15/2016)] [Electronically locked/signed by Dania Best R.N. (:03/14/2016)]
--- NOTE | 2016-03-14 19:51 | ED NURSING NOTES ---
Clinical Report - Nurses [facility] [address] [place] [address] 03/14/2016 16:25 Patient: YOU CASTRO TRIAGE Triage time 1640. Acuity: LEVEL 3. Chief Complaint: BLACK STOOLS. Alert. No acute distress. ( chronic leg pain, no abd pain). --16:46 Allison Arciniega 16:43 03/14/16. BP: 203/100. HR: 96. RR: 18. O2 saturation: 98%. Temp: 97.8 F. Pain level now 07/31. --16:46 Allison Arciniega. Weight: 90.7 kg. Height/Length: 64 inches. BMI: 34.3. --16:43 Allison Arciniega. Medications Acidophilus Oral. Antivert Oral (Tablet 25 mg), as needed. ASA Oral. Aspirin Oral (Tablet 81 mg), as needed. Escitalopram Oxalate Oral (Tablet 5 mg), 2x a day. Gabapentin Oral. Glipizide Oral (Tablet 10 mg) 1 tablet, 2x a day. Insulin Lantus 28 28 Units, at bedtime. Januvia Oral (Tablet 50 mg) 1 tablet, daily. --16:44 Allison Arciniega Januvia Oral (Tablet 100 mg) 1 tablet. Lisinopril Oral (Tablet 20 mg) 1 tablet, daily. Lovastatin Oral. Metoprolol Tartrate Oral. Omeprazole Oral (Tablet Delayed Release 20 mg) 1 tablet, 2x a day. Simvastatin Oral (Tablet 20 mg) 1 tablet, daily. Xarelto Oral. --16:44 Allison Arciniega. Allergies Sulfa Antibiotics. --16:44 Allison Arciniega. History Arrived by private vehicle. Historian: patient. Accompanied by family. This started today. ( Pt just released from here with GI Bleed, sts started again today). 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 SOCIAL HX: Former smoker. Occasional alcohol use. --16:46 Allison Arciniega. PROBLEMS: GI Bleeding. Labyrinthitis. Arthritis. Anemia. Hyperlipidemia. Hypertension. Glaucoma. Vertigo. Diabetes Mellitus. --16:45 Allison Arciniega. ADDITIONAL SURGERIES: Breast surgery. Knee. --16:45 Allison Arciniega. Interventions ID band on patient. To treatment room. --16:46 Allison Arciniega. PHYSICAL ASSESSMENT Ambulatory to room. GENERAL / NEURO / PSYCH: Alert. Oriented X 4. Appears in no acute distress. HEENT: Mucous membranes are pink. RESPIRATORY: Respirations not labored. Breath sounds within normal limits. CVS: Capillary refill less than 2 seconds. GI / : Obesity. Blood present in the stool. Stool color is abnormal. SKIN: Skin is warm and dry. --16:47 Allison Arciniega. NURSING PROGRESS NOTES 17:08 03/14/2016 Site #1 started via IV in the right forearm with an 20g angiocath, with aseptic technique and good blood return; one attempt. Blood drawn: rainbow set. Labeled in the presence of the patient and sent to the lab. Saline lock flushed with 10 mL saline. --17:08 Allison Arciniega Disease Case Manager provided for the rectal exam by the physician. --17:21 Allison Arciniega ( Pt sts she did not take her am meds which includes her b/p medication). --19:04 Allison Arciniega 19:03 03/14/16. BP: 189/89. HR: 86. RR: 18. O2 saturation: 97%. Pain level now 6/10. --19:04 Allisno Arciniega. DISPOSITION / DISCHARGE Departure time: 1954Mar 14 2016. Condition at departure: improved and stable. No learning barriers present. Discharge instructions provided and reviewed with the patient and family. Patient and family verbalized understanding. Written instructions provided in Vietnamese. The patient was discharged by the physician. She was discharged home and accompanied by family. She left the Emergency Department ambulatory and via private vehicle. Family member driving. --21:02 Dania Best R.N. 20:59 03/14/16. BP: deferred. Additional comments: pt dressed and standing outside of room. Pt refused. --21:02 Dania Best R.N. Locked/Released at 03/14/2016 21:02 by Dania Best R.N.
--- NOTE | 2016-03-14 19:51 | ED ORDER SUMMARY ---
..... Patient: YOU CASTRO OrderSheet VisitID: [id number] [address] [place] [address] 85y, F Registration Date/Time: 03/14/2016 ORDER SHEET Weight: 90.7 kg Allergies: Sulfa Antibiotics GENERAL ORDERS: CBC w Diff Urgent (17:03/14/2016 EBonham per protocol) (Ack 17:09 LMuller) (17:10 LMuller) CMP Urgent (17:03/14/2016 EBonham per protocol) (Ack 17:09 LMuller) (17:10 LMuller) MEDICATION ORDERS: IV FLUIDS: ORDER SHEET NOTES: [Electronically signed by Dania Best R.N. (:03/14/2016)] [Electronically signed by Sage Siddiqui MD (:03/15/2016)] [Electronically locked/signed by Dania Best R.N. (:03/14/2016)]
--- NOTE | 2016-03-14 19:51 | ED NURSING NOTES ---
Clinical Report - Nurses [facility] [address] [place] [address] 03/14/2016 16:25 Patient: YOU CASTRO TRIAGE Triage time 1640. Acuity: LEVEL 3. Chief Complaint: BLACK STOOLS. Alert. No acute distress. ( chronic leg pain, no abd pain). --16:46 Allison Arciniega 16:43 03/14/16. BP: 203/100. HR: 96. RR: 18. O2 saturation: 98%. Temp: 97.8 F. Pain level now 07/31. --16:46 Allison Arciniega. Weight: 90.7 kg. Height/Length: 64 inches. BMI: 34.3. --16:43 Allison Arciniega. Medications Acidophilus Oral. Antivert Oral (Tablet 25 mg), as needed. ASA Oral. Aspirin Oral (Tablet 81 mg), as needed. Escitalopram Oxalate Oral (Tablet 5 mg), 2x a day. Gabapentin Oral. Glipizide Oral (Tablet 10 mg) 1 tablet, 2x a day. Insulin Lantus 28 28 Units, at bedtime. Januvia Oral (Tablet 50 mg) 1 tablet, daily. --16:44 Allison Arciniega Januvia Oral (Tablet 100 mg) 1 tablet. Lisinopril Oral (Tablet 20 mg) 1 tablet, daily. Lovastatin Oral. Metoprolol Tartrate Oral. Omeprazole Oral (Tablet Delayed Release 20 mg) 1 tablet, 2x a day. Simvastatin Oral (Tablet 20 mg) 1 tablet, daily. Xarelto Oral. --16:44 Allison Arciniega. Allergies Sulfa Antibiotics. --16:44 Allison Arciniega. History Arrived by private vehicle. Historian: patient. Accompanied by family. This started today. ( Pt just released from here with GI Bleed, sts started again today). 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 SOCIAL HX: Former smoker. Occasional alcohol use. --16:46 Allison Arciniega. PROBLEMS: GI Bleeding. Labyrinthitis. Arthritis. Anemia. Hyperlipidemia. Hypertension. Glaucoma. Vertigo. Diabetes Mellitus. --16:45 Allison Arciniega. ADDITIONAL SURGERIES: Breast surgery. Knee. --16:45 Allison Arciniega. Interventions ID band on patient. To treatment room. --16:46 Allison Arciniega. PHYSICAL ASSESSMENT Ambulatory to room. GENERAL / NEURO / PSYCH: Alert. Oriented X 4. Appears in no acute distress. HEENT: Mucous membranes are pink. RESPIRATORY: Respirations not labored. Breath sounds within normal limits. CVS: Capillary refill less than 2 seconds. GI / : Obesity. Blood present in the stool. Stool color is abnormal. SKIN: Skin is warm and dry. --16:47 Allison Arciniega. NURSING PROGRESS NOTES 17:08 03/14/2016 Site #1 started via IV in the right forearm with an 20g angiocath, with aseptic technique and good blood return; one attempt. Blood drawn: rainbow set. Labeled in the presence of the patient and sent to the lab. Saline lock flushed with 10 mL saline. --17:08 Allison Arciniega Machinist Apprentice Wood provided for the rectal exam by the physician. --17:21 Allison Arciniega ( Pt sts she did not take her am meds which includes her b/p medication). --19:04 Allison Arciniega 19:03 03/14/16. BP: 189/89. HR: 86. RR: 18. O2 saturation: 97%. Pain level now 6/10. --19:04 Allison Arciniega. DISPOSITION / DISCHARGE Departure time: 1954Mar 14 2016. Condition at departure: improved and stable. No learning barriers present. Discharge instructions provided and reviewed with the patient and family. Patient and family verbalized understanding. Written instructions provided in Italian. The patient was discharged by the physician. She was discharged home and accompanied by family. She left the Emergency Department ambulatory and via private vehicle. Family member driving. --21:02 Dania Best R.N. 20:59 03/14/16. BP: deferred. Additional comments: pt dressed and standing outside of room. Pt refused. --21:02 Dania Best R.N. Locked/Released at 03/14/2016 21:02 by Dania Best R.N.
--- NOTE | 2016-03-15 11:22 | ED DISCHARGE INSTRUCTIONS ---
Patient: YOU CASTRO General Instructions [facility] VisitID: [id number] [place], [place] [id number] 85y, F Registration Date/Time: 03/14/2016 Rectal bleed consisting of bright red blood (Due to rectal mass.). Mild anemia due to rectal bleeding. INSTRUCTIONS No strenuous activity. Rest. Drink plenty of fluids. (Get iron supplements started. Avoid any type of aspirin.). Warnings: Further evaluation is necessary. GENERAL WARNINGS: Return or contact your physician immediately if your condition worsens or changes unexpectedly, if not improving as expected, or if other problems arise. Your Current Medications: CONTINUE TAKING THE FOLLOWING MEDICATIONS: Acidophilus Oral. Antivert Oral : Tablet 25 mg, prn. ASA Oral. Aspirin Oral : Tablet 81 mg, prn. Escitalopram Oxalate Oral : Tablet 5 mg, 2x a day. Gabapentin Oral. Glipizide Oral : Tablet 10 mg, 1 tablet 2x a day. Insulin Lantus 28* : 28 Units at bedtime. Januvia Oral : Tablet 50 mg, 1 tablet daily. Januvia Oral : Tablet 100 mg, 1 tablet. Lisinopril Oral : Tablet 20 mg, 1 tablet daily. Lovastatin Oral. Metoprolol Tartrate Oral. Omeprazole Oral : Tablet Delayed Release 20 mg, 1 tablet 2x a day. Simvastatin Oral : Tablet 20 mg, 1 tablet daily. Xarelto Oral. Follow-up: Follow up with your doctor in three days. Call for an appointment. Reason for referral: Re-check CBC due to bleeding. Understanding of the discharge instructions verbalized by patient and family. Follow-up with: Edwin Jesus MD, General Surgeon, , [facility], [address] [place] [address], [phone] Follow up as scheduled. ADDITIONAL INFORMATION Rectal Bleeding (Stable) Your exam today shows signs of blood in the stool. This is called rectal bleeding, because the blood passes through the rectum. However, the blood may not be coming from the rectum. Blood in the stool may be red or black in color. Red blood in the stool usually comes from the lower gastro-intestinal (GI) tract. This may be due to diverticulosis, polyps, colon inflammation or infection, anal fissure or hemorrhoids. In persons over 50 tumors and cancer of the intestinal tract may first show up as red blood in the stool. Upper GI bleeding causes the stool to turn black. This may occur with bleeding from the esophagus, stomach, duodenum or small intestine. Very small amounts of GI bleeding may not be visible and can only be discovered on a chemical test of the stool. You have not lost a large amount of blood and your condition appears stable at this time. It is very important to have a follow-up exam to determine the exact cause of your bleeding. Home Care: 1) You may resume normal activity as long as you feel well. 2) Avoid aspirin and anti-inflammatory drugs such as ibuprofen (Advil, Motrin) and naproxen (Aleve and Naprosyn). You may use acetaminophen (Tylenol) for pain. [ NOTE : If you have chronic liver disease, talk with your doctor before using acetaminophen.] 3) Avoid alcohol. Follow Up with your doctor or as advised by our medical staff. It is very important that you have further tests done to find the cause of your bleeding. Get Prompt Medical Attention if any of the following occur: -- Large amount of rectal bleeding (more than 1 cup of blood in 24 hours) -- Increasing abdominal pain -- Weakness, dizziness or fainting -- Vomiting blood (red or black color) You have been given the following additional information: Rectal Bleed, Stable No strenuous activity. Rest. (Electronically signed by Sage Siddiqui MD 03/15/2016 11:22)
--- NOTE | 2016-03-15 11:22 | ED MAR SUMMARY ---
..... Medication Administration Record [facility] [address] [place], [place] [id number] Patient: YOU CASTRO Visit ID: [id number] 85y, F Weight: 90.7 kg Height/Length: 64 in BMI: 34.3 ALLERGIES: Sulfa Antibiotics
--- NOTE | 2016-03-15 11:22 | ED MED RECONCILIATION SUMMARY ---
Patient: YOU CASTRO Medication Reconciliation Report [facility] VisitID: [id number] [address] [place] [address] 85y, F Registration Date/Time: 03/14/2016 Weight: 90.7 kg Height/Length: 64 in. BMI: 34.3 ALLERGIES: Sulfa Antibiotics The patient's Home Medications are listed below: CONTINUE TAKING THE FOLLOWING MEDICATIONS: Acidophilus Oral Antivert Oral (25 mg) ASA Oral Aspirin Oral (81 mg) Escitalopram Oxalate Oral (5 mg), 2x a day Gabapentin Oral Glipizide Oral (10 mg) 1 tablet, 2x a day Insulin Lantus 28 28 Units, at bedtime Januvia Oral (50 mg) 1 tablet, daily Januvia Oral (100 mg) 1 tablet Lisinopril Oral (20 mg) 1 tablet, daily Lovastatin Oral Metoprolol Tartrate Oral Omeprazole Oral (20 mg) 1 tablet, 2x a day Simvastatin Oral (20 mg) 1 tablet, daily Xarelto Oral The source(s) of the original Home Medication information: Not obtained. The following Medications were given to the patient in the Emergency Department: None. The following Medications were prescribed to the patient: None.
--- NOTE | 2016-03-15 11:22 | ED MED RECONCILIATION SUMMARY ---
Patient: YOU CASTRO Medication Reconciliation Report [facility] VisitID: [id number] [address] [place] [address] 85y, F Registration Date/Time: 03/14/2016 Weight: 90.7 kg Height/Length: 64 in. BMI: 34.3 ALLERGIES: Sulfa Antibiotics The patient's Home Medications are listed below: CONTINUE TAKING THE FOLLOWING MEDICATIONS: Acidophilus Oral Antivert Oral (25 mg) ASA Oral Aspirin Oral (81 mg) Escitalopram Oxalate Oral (5 mg), 2x a day Gabapentin Oral Glipizide Oral (10 mg) 1 tablet, 2x a day Insulin Lantus 28 28 Units, at bedtime Januvia Oral (50 mg) 1 tablet, daily Januvia Oral (100 mg) 1 tablet Lisinopril Oral (20 mg) 1 tablet, daily Lovastatin Oral Metoprolol Tartrate Oral Omeprazole Oral (20 mg) 1 tablet, 2x a day Simvastatin Oral (20 mg) 1 tablet, daily Xarelto Oral The source(s) of the original Home Medication information: Not obtained. The following Medications were given to the patient in the Emergency Department: None. The following Medications were prescribed to the patient: None.
--- NOTE | 2016-03-15 11:22 | ED DISCHARGE INSTRUCTIONS ---
Patient: YOU CASTRO General Instructions [facility] VisitID: [id number] [place], [place] [id number] 85y, F Registration Date/Time: 03/14/2016 Rectal bleed consisting of bright red blood (Due to rectal mass.). Mild anemia due to rectal bleeding. INSTRUCTIONS No strenuous activity. Rest. Drink plenty of fluids. (Get iron supplements started. Avoid any type of aspirin.). Warnings: Further evaluation is necessary. GENERAL WARNINGS: Return or contact your physician immediately if your condition worsens or changes unexpectedly, if not improving as expected, or if other problems arise. Your Current Medications: CONTINUE TAKING THE FOLLOWING MEDICATIONS: Acidophilus Oral. Antivert Oral : Tablet 25 mg, prn. ASA Oral. Aspirin Oral : Tablet 81 mg, prn. Escitalopram Oxalate Oral : Tablet 5 mg, 2x a day. Gabapentin Oral. Glipizide Oral : Tablet 10 mg, 1 tablet 2x a day. Insulin Lantus 28* : 28 Units at bedtime. Januvia Oral : Tablet 50 mg, 1 tablet daily. Januvia Oral : Tablet 100 mg, 1 tablet. Lisinopril Oral : Tablet 20 mg, 1 tablet daily. Lovastatin Oral. Metoprolol Tartrate Oral. Omeprazole Oral : Tablet Delayed Release 20 mg, 1 tablet 2x a day. Simvastatin Oral : Tablet 20 mg, 1 tablet daily. Xarelto Oral. Follow-up: Follow up with your doctor in three days. Call for an appointment. Reason for referral: Re-check CBC due to bleeding. Understanding of the discharge instructions verbalized by patient and family. Follow-up with: Edwin Jesus MD, General Surgeon, , [facility], [address] [place] [address], [phone] Follow up as scheduled. ADDITIONAL INFORMATION Rectal Bleeding (Stable) Your exam today shows signs of blood in the stool. This is called rectal bleeding, because the blood passes through the rectum. However, the blood may not be coming from the rectum. Blood in the stool may be red or black in color. Red blood in the stool usually comes from the lower gastro-intestinal (GI) tract. This may be due to diverticulosis, polyps, colon inflammation or infection, anal fissure or hemorrhoids. In persons over 50 tumors and cancer of the intestinal tract may first show up as red blood in the stool. Upper GI bleeding causes the stool to turn black. This may occur with bleeding from the esophagus, stomach, duodenum or small intestine. Very small amounts of GI bleeding may not be visible and can only be discovered on a chemical test of the stool. You have not lost a large amount of blood and your condition appears stable at this time. It is very important to have a follow-up exam to determine the exact cause of your bleeding. Home Care: 1) You may resume normal activity as long as you feel well. 2) Avoid aspirin and anti-inflammatory drugs such as ibuprofen (Advil, Motrin) and naproxen (Aleve and Naprosyn). You may use acetaminophen (Tylenol) for pain. [ NOTE : If you have chronic liver disease, talk with your doctor before using acetaminophen.] 3) Avoid alcohol. Follow Up with your doctor or as advised by our medical staff. It is very important that you have further tests done to find the cause of your bleeding. Get Prompt Medical Attention if any of the following occur: -- Large amount of rectal bleeding (more than 1 cup of blood in 24 hours) -- Increasing abdominal pain -- Weakness, dizziness or fainting -- Vomiting blood (red or black color) You have been given the following additional information: Rectal Bleed, Stable No strenuous activity. Rest. (Electronically signed by Sage Siddiqui MD 03/15/2016 11:22)
--- NOTE | 2016-03-15 11:22 | ED MAR SUMMARY ---
..... Medication Administration Record [facility] [address] [place], [place] [id number] Patient: YOU CASTRO Visit ID: [id number] 85y, F Weight: 90.7 kg Height/Length: 64 in BMI: 34.3 ALLERGIES: Sulfa Antibiotics
== END 2016-03-14 19:55 | disposition home or self-care (01) ==
LOC: ED SRH 16:24
DX: K92.1 Melena (principal); K62.89 Other specified diseases of anus and rectum; D64.9 Anemia, unspecified; I10 Essential (primary) hypertension; E11.9 Type 2 diabetes mellitus without complications; Z79.1 Long term (current) use of non-steroidal anti-inflammatories (NSAID); Z79.84 Long term (current) use of oral hypoglycemic drugs; Z88.2 Allergy status to sulfonamides
CPT/HCPCS: 90074; 90100; 95059

== ENCOUNTER 2016-03-23 11:12 | Emergency (ER) | payer OTHER ==
--- NOTE | 2016-03-23 12:09 | DIAGNOSTIC IMAGING REPORT ---
PROCEDURE: XR CHEST 1 VIEW INDICATION: ALOC TECHNIQUE: Portable AP view 11:45 a.m. COMPARISON: Chest CT 03/19/2013 FINDINGS: Left lower lobe infiltrate with a a small pleural effusion. Right lung is clear. Heart and mediastinum are normal. Thorax is normal. IMPRESSION: 1. Left lower lobe infiltrate with a small pleural effusion.
--- NOTE | 2016-03-23 14:50 | ED NURSING NOTES ---
Clinical Report - Nurses [facility] [address] [place] [address] 03/23/2016 11:12 Patient: YOU CASTRO TRIAGE Triage time 1105. Acuity: LEVEL 3. Chief Complaint: (Family and facility concerns that the patient's mental status decreasing. Also concerns that the patient not taqking correct medicine, she takes her own. Patient has some bleeding from the rectum, bright red, no clots.). Alert (Disoriented x 2, time and place.). SEPSIS SCREEN: Sepsis Screen: negative. Negative (no infection suspected/documented). MIKE COMA SCORE: Mike Coma Scale: 14- eyes open spontaneously (4); best verbal response- disoriented (4); best motor response- obeys commands (6). --12:00 Arlene Salazar R.N. 11:47 03/23/16. BP: 163/75. HR: 91. RR: 18. O2 saturation: 96% on room air. Temp: 97.5 F. Pain level now: 0/10. --12:00 Arlene Salazar R.N. 11:47 03/23/16. BP: 163/75. HR: 91. RR: 18. O2 saturation: 96% on room air. Temp: 97.5 F. Pain level now: 0/10. --12:00 Arlene Salazar R.N. Weight: 85.8 kg measured. Height/Length: 64 inches Estimated. BMI: 32.5. --11:51 Arlene Salazar R.N. Medications Acidophilus Oral, am. Escitalopram Oxalate Oral (Tablet 5 mg), daily. Gabapentin Oral. Insulin Lantus 28 28 Units, at bedtime. --11:53 Arlene Salazar R.N. Insulin, novalog 10units am. --11:56 Arlene Salazar R.N. Ferrouos sulfate 325mg w/ vit C 500mg bid . --11:57 Arlene Salazar R.N. Tradjenta Oral (Tablet 5 mg) 1 tablet, am. --11:58 Arlene Salazar R.N. Simvastatin Oral 20 mg, daily. --11:58 Arlene Salazar R.N. Losartin 50mg am. --11:59 Arlene Salazar R.N. Gabapentin Oral (Capsule 100 mg) 1 capsule, 2x a day. --11:59 Arlene Salazar R.N. Medication/allergy information source: the patient's alf record. --12:00 Arlene Salazar R.N. Allergies Sulfa Antibiotics. --11:53 Arlene Salazar R.N. History Arrived by EMS. Historian: patient. Primary physician (angel). Onset was gradual. (Last couple of weeks). She has had weakness. 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 See EMS report. Finger stick glucose performed (335). BP: 170 / 97 lying. HR: 98. RR: 20. O2 saturation: 96 %. End tidal CO2: 37 mm Hg. Upon arrival patient awake and disoriented. PAST MEDICAL HX: The patient is post-menopausal. SOCIAL HX: Smoker- current status unknown. Alcohol use; consumes liquor drinks occasionally. No drug use. FALL RISK ASSESSMENT: Fall risk assessment completed. No fall risk identified. NUTRITIONAL RISK ASSESSMENT: The nutritional risk assessment revealed no deficiencies. FUNCTIONAL ASSESSMENT: Functional assessment: no impairments noted. LEARNING NEEDS ASSESSMENT: The learning needs assessment revealed no barriers. SKIN INTEGRITY ASSESSMENT: Skin integrity risk assessment completed. No skin integrity risk identified. --12:00 Arlene Salazar R.N. PROBLEMS: Rectal Bleed. GI Bleeding. Labyrinthitis. Arthritis. Anemia. Hyperlipidemia. Hypertension. Glaucoma. Vertigo. Diabetes Mellitus. --11:46 Arlene Salazar R.N. ADDITIONAL SURGERIES: Breast surgery. Knee. --11:46 Arlene Salazar R.N. Interventions ID band on patient. To room. --12:00 Arlene Salazar R.N. PHYSICAL ASSESSMENT To room via stretcher. Patient gowned. GENERAL / NEURO / PSYCH: Alert. Decreased awareness. HEENT: Mucous membranes are pink. RESPIRATORY: Respirations not labored. CVS: Capillary refill less than 2 seconds. GI / : Abdomen nontender. SKIN: Skin intact. Skin is warm and dry. Normal skin turgor. ( Slight edema to feet.). --12:01 Arlene Salazar R.N. NURSING PROGRESS NOTES Pulse oximeter and NIBP monitor placed on patient; monitor alarms on. Patient gowned. Head of bed elevated. Two patient identifiers checked. Call light placed in reach. Side rails up x 2. Bed placed in lowest position. Brakes of bed on. Patient ready for evaluation. --12:02 Arlene Salazar R.N. 11:20 03/23/2016 Site #1 started via IV in the right antecubital space with an 20g angiocath, with aseptic technique and good blood return; one attempt. Blood drawn: rainbow set. Labeled in the presence of the patient and sent to the lab. Saline lock flushed with 10 mL saline. --12:12 Arlene Salazar R.N. 12:12 03/23/2016 Started bag #1 1000 mL IV Fluids IV NS (Saline); bolus of 500 mL over 30 minute(s) then at 100 mL/hr over 5 hour(s) via site #1 via IV pump. Allergies verified and confirmed 5 rights. IV patency established. IV site checked: no pain, redness, or swelling. IV flushed thoroughly pre- and post-medication administration. --12:12 Arlene Salazar R.N. 14 fr gonzales catheter. Reason for indwelling catheter: requires prolonged immobilization and patient's decreased level of consciousness. During procedure hand hygiene observed and sterile equipment and aseptic technique used. Return of 200 mL yellow-colored cloudy urine; attached to bedside drainage bag positioned below the bladder and secured with tape. She tolerated procedure well. --12:13 Arlene Salazar R.N. EKG time: (1205). EKG was performed by a tech and shown to the ED physician. --12:15 Amirah Fleming 13:47 03/23/16. BP: 168/75. HR: 106. RR: 20. O2 saturation: 96% on room air. Pain level now: 0/10. 12:38 03/23/16. BP: 177/87. HR: 100. RR: 18. O2 saturation: 96% on room air. Pain level now: 0/10. --13:49 Arlene Salazar R.N. 14:45 03/23/2016 Macrobid PO 100 mg given. Allergies verified and confirmed 5 rights. --14:55 Arlene Salazar R.N. Finger stick glucose: 237; performed by tech; result shown to the RN. --15:37 Amirah Fleming 15:26 03/23/2016 Insulin REG IVP 6 unit given over 1 minute(s) via site #1. Allergies verified and confirmed 5 rights. IV patency established. IV site checked: no pain, redness, or swelling. IV flushed thoroughly pre- and post-medication administration. IVP given by RN. --15:51 Arlene Salazar R.N. 15:30 03/23/2016 Site #1 removed upon discharge. Catheter intact. Bandaid applied. --15:52 Arlene Salazar R.N. 15:30 03/23/2016 IV Fluids IV NS Discontinued: bag #1 STOPPED upon discharge. Total amount infused: 800 mL. IV patency established. IV site checked: no pain, redness, or swelling. IV flushed thoroughly. --15:51 Arlene Salazar R.N. Intake & Output TOTAL INTAKE: 800. IV fluids: 800 mL. TOTAL OUTPUT: 500 mL. Urine: floey dc'd and emptied., with return of 500 mL yellow-colored cloudy urine. --14:54 Arlene Salazar R.N. DISPOSITION / DISCHARGE 15:30. Condition at departure: improved. ( glucose 237mg/dl). Transported via ambulance by transport team. Report was given to an EMT/P in person. Report included patient's care, treatment, medications, reviewed medication reconcilliation, and condition (including any recent changes or anticipated changes). All questions were answered. Care was transferred. Patient's personal items include: shirt, pants, undergarments, coat, socks, shoes and jewelry; items were placed in belongings bag and transported with the patient. Collection of belongings was witnessed by 1 nurse. --15:52 Arlene Salazar R.N. 15:32 03/23/16. BP: 144/79. HR: 72. RR: 18. O2 saturation: 98% on room air. Temp: deferred. Pain level now: 0/10. 13:47 03/23/16. BP: 168/75. HR: 106. RR: 20. O2 saturation: 96% on room air. Pain level now: 0. 12:38 03/23/16. BP: 177/87. HR: 100. RR: 18. O2 saturation: 96% on room air. Pain level now: 010. 11:47 03/23/16. BP: 163/75. HR: 91. RR: 18. O2 saturation: 96% on room air. Temp: 97.5 F. Pain level now: 0. --15:53 Arlene Salazar R.N. 16:40. ( Charo, Production Operations Inspector, called and questioned the discharge of the patient back to facility. Charo stated she was aware of the patient not being cooperative if she didn't want to be. Charo stated, "we know she can be that way, and we are very careful around her". Patient's family member here and spoke with the dr. Agreeable to the patient going back. Patient then transported back to [facility].). --16:55 Arlene Salazar R.N. correction to prior entry -Charo, supervisor paper testing of [facility]. --16:56 Arlene Salazar R.N. Locked/Released at 03/23/2016 16:57 by Arlene Salazar R.N.
--- NOTE | 2016-03-23 14:50 | ED ORDER SUMMARY ---
..... Patient: YOU CASTRO OrderSheet VisitID: [id number] [place] [address] 85y, F Registration Date/Time: 03/23/2016 ORDER SHEET Weight: 85.8 kg (measured) Allergies: Sulfa Antibiotics GENERAL ORDERS: PT with INR Urgent (11:39 03/23/2016 Selina GARCIA) (Ack 11:48 LMuller) (12:02 SRoberts R.N.) Type & Screen Urgent (11:39 03/23/2016 Selina GARCIA) (Ack 11:48 LMuller) (12:02 SRoberts R.N.) Chest 1V Urgent (:03/23/2016 Selina GARCIA) (Ack 11:48 LMuller) (12:02 SRoberts R.N.) Advertising Production Manager (Continuous) (11:03/23/2016 Selina GARCIA) (Ack 11:48 LMuller) (12:02 SRoberts R.N.) (12:10 LMuller) Cardiac Panel Stat (11:39 03/23/2016 Selina GARCIA) (Ack 11:48 LMuller) (12:02 SRoberts R.N.) BNP Urgent (11:39 03/23/2016 Selina GARCIA) (Ack 11:48 LMuller) (12:02 SRoberts R.N.) UA-Culture if indicated Urgent (11:03/23/2016 Selina GARCIA) (Ack 11:48 LMuller) (12:02 SRoberts R.N.) Pulse oximeter (11:39 03/23/2016 Selina GARCIA) (Ack 11:48 LMuller) (12:02 SRoberts R.N.) (12:10 LMuller) EKG - ER Stat (:03/23/2016 Selina GARCIA) (Ack 11:48 LMuller) (12:02 SRoberts R.N.) (12:06 LMuller) MEDICATION ORDERS: Macrobid PO 100 mg (NOW) (14:27 03/23/2016 Selina GARCIA) (14:55 SRoberts R.N.) IV FLUIDS: IV NS : initial bolus 500 mL (1000 mL/hr), then 100 mL/hr (NOW) (11:39 03/23/2016 Selina GARCIA) (12:12 Quiana Joaquin) Insulin Reg IV 6 units (HIGH ALERT MEDICATION, NOW) (14:31 03/23/2016 Selina GARCIA) (15:51 Quiana Joaquin) ORDER SHEET NOTES: [Electronically signed by Arlene Salazar R.N. (16:57 03/23/2016)] [Electronically signed by Maribel Ferreira MD (17:00 03/29/2016)] [Electronically locked/signed by Arlene Salazar R.N. (16:57 03/23/2016)]
--- NOTE | 2016-03-23 14:50 | ED ORDER SUMMARY ---
..... Patient: YOU CASTRO OrderSheet [facility] VisitID: [id number] [place] [address] 85y, F Registration Date/Time: 03/23/2016 ORDER SHEET Weight: 85.8 kg (measured) Allergies: Sulfa Antibiotics GENERAL ORDERS: PT with INR Urgent (11:39 03/23/2016 Selina GARCIA) (Ack 11:48 LMuller) (12:02 SRoberts R.N.) Type & Screen Urgent (11:39 03/23/2016 Selina GARCIA) (Ack 11:48 LMuller) (12:02 SRoberts R.N.) Chest 1V Urgent (:03/23/2016 Selina GARCIA) (Ack 11:48 LMuller) (12:02 SRoberts R.N.) Family Literacy Coordinator (Continuous) (11:03/23/2016 Selina GARCIA) (Ack 11:48 LMuller) (12:02 SRoberts R.N.) (12:10 LMuller) Cardiac Panel Stat (11:39 03/23/2016 Selina GARCIA) (Ack 11:48 LMuller) (12:02 SRoberts R.N.) BNP Urgent (11:39 03/23/2016 Selina GARCIA) (Ack 11:48 LMuller) (12:02 SRoberts R.N.) UA-Culture if indicated Urgent (11:03/23/2016 Selina GARCIA) (Ack 11:48 LMuller) (12:02 SRoberts R.N.) Pulse oximeter (11:39 03/23/2016 Selina GARCIA) (Ack 11:48 LMuller) (12:02 SRoberts R.N.) (12:10 LMuller) EKG - ER Stat (:03/23/2016 Selina GARCIA) (Ack 11:48 LMuller) (12:02 SRoberts R.N.) (12:06 LMuller) MEDICATION ORDERS: Macrobid PO 100 mg (NOW) (14:27 03/23/2016 Selina GARCIA) (14:55 SRoberts R.N.) IV FLUIDS: IV NS : initial bolus 500 mL (1000 mL/hr), then 100 mL/hr (NOW) (11:39 03/23/2016 Selina GARCIA) (12:12 Quiana Joaquin) Insulin Reg IV 6 units (HIGH ALERT MEDICATION, NOW) (14:31 03/23/2016 Selina GARCIA) (15:51 Quiana Joaquin) ORDER SHEET NOTES: [Electronically signed by Arlene Salazar R.N. (16:57 03/23/2016)] [Electronically signed by Maribel Ferreira MD (17:00 03/29/2016)] [Electronically locked/signed by Arlene Salazar R.N. (16:57 03/23/2016)]
--- NOTE | 2016-03-23 14:50 | ED NURSING NOTES ---
Clinical Report - Nurses Located Within [facility] [address] [place] [address] 03/23/2016 11:12 Patient: YOU ACSTRO TRIAGE Triage time 1105. Acuity: LEVEL 3. Chief Complaint: (Family and facility concerns that the patient's mental status decreasing. Also concerns that the patient not taqking correct medicine, she takes her own. Patient has some bleeding from the rectum, bright red, no clots.). Alert (Disoriented x 2, time and place.). SEPSIS SCREEN: Sepsis Screen: negative. Negative (no infection suspected/documented). MIKE COMA SCORE: Mike Coma Scale: 14- eyes open spontaneously (4); best verbal response- disoriented (4); best motor response- obeys commands (6). --12:00 Arlene Salazar R.N. 11:47 03/23/16. BP: 163/75. HR: 91. RR: 18. O2 saturation: 96% on room air. Temp: 97.5 F. Pain level now: 0/10. --12:00 Arlene Salazar R.N. 11:47 03/23/16. BP: 163/75. HR: 91. RR: 18. O2 saturation: 96% on room air. Temp: 97.5 F. Pain level now: 0/10. --12:00 Arlene Salazar R.N. Weight: 85.8 kg measured. Height/Length: 64 inches Estimated. BMI: 32.5. --11:51 Arlene Salazar R.N. Medications Acidophilus Oral, am. Escitalopram Oxalate Oral (Tablet 5 mg), daily. Gabapentin Oral. Insulin Lantus 28 28 Units, at bedtime. --11:53 Arlene Salazar R.N. Insulin, novalog 10units am. --11:56 Arlene Salazar R.N. Ferrouos sulfate 325mg w/ vit C 500mg bid . --11:57 Arlene Salazar R.N. Tradjenta Oral (Tablet 5 mg) 1 tablet, am. --11:58 Arlene Salazar R.N. Simvastatin Oral 20 mg, daily. --11:58 Arlene Salazar R.N. Losartin 50mg am. --11:59 Arlene Salazar R.N. Gabapentin Oral (Capsule 100 mg) 1 capsule, 2x a day. --11:59 Arlene Salazar R.N. Medication/allergy information source: the patient's skilled nursing record. --12:00 Arlene Salazar R.N. Allergies Sulfa Antibiotics. --11:53 Arlene Salazar R.N. History Arrived by EMS. Historian: patient. Primary physician (angel). Onset was gradual. (Last couple of weeks). She has had weakness. 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 See EMS report. Finger stick glucose performed (335). BP: 170 / 97 lying. HR: 98. RR: 20. O2 saturation: 96 %. End tidal CO2: 37 mm Hg. Upon arrival patient awake and disoriented. PAST MEDICAL HX: The patient is post-menopausal. SOCIAL HX: Smoker- current status unknown. Alcohol use; consumes liquor drinks occasionally. No drug use. FALL RISK ASSESSMENT: Fall risk assessment completed. No fall risk identified. NUTRITIONAL RISK ASSESSMENT: The nutritional risk assessment revealed no deficiencies. FUNCTIONAL ASSESSMENT: Functional assessment: no impairments noted. LEARNING NEEDS ASSESSMENT: The learning needs assessment revealed no barriers. SKIN INTEGRITY ASSESSMENT: Skin integrity risk assessment completed. No skin integrity risk identified. --12:00 Arlene Salazar R.N. PROBLEMS: Rectal Bleed. GI Bleeding. Labyrinthitis. Arthritis. Anemia. Hyperlipidemia. Hypertension. Glaucoma. Vertigo. Diabetes Mellitus. --11:46 Arlene Salazar R.N. ADDITIONAL SURGERIES: Breast surgery. Knee. --11:46 Arlene Salazar R.N. Interventions ID band on patient. To room. --12:00 Arlene Salazar R.N. PHYSICAL ASSESSMENT To room via stretcher. Patient gowned. GENERAL / NEURO / PSYCH: Alert. Decreased awareness. HEENT: Mucous membranes are pink. RESPIRATORY: Respirations not labored. CVS: Capillary refill less than 2 seconds. GI / : Abdomen nontender. SKIN: Skin intact. Skin is warm and dry. Normal skin turgor. ( Slight edema to feet.). --12:01 Arlene Salazar R.N. NURSING PROGRESS NOTES Pulse oximeter and NIBP monitor placed on patient; monitor alarms on. Patient gowned. Head of bed elevated. Two patient identifiers checked. Call light placed in reach. Side rails up x 2. Bed placed in lowest position. Brakes of bed on. Patient ready for evaluation. --12:02 Arlene Salazar R.N. 11:20 03/23/2016 Site #1 started via IV in the right antecubital space with an 20g angiocath, with aseptic technique and good blood return; one attempt. Blood drawn: rainbow set. Labeled in the presence of the patient and sent to the lab. Saline lock flushed with 10 mL saline. --12:12 Arlene Salazar R.N. 12:12 03/23/2016 Started bag #1 1000 mL IV Fluids IV NS (Saline); bolus of 500 mL over 30 minute(s) then at 100 mL/hr over 5 hour(s) via site #1 via IV pump. Allergies verified and confirmed 5 rights. IV patency established. IV site checked: no pain, redness, or swelling. IV flushed thoroughly pre- and post-medication administration. --12:12 Arlene Salazar R.N. 14 fr gonzales catheter. Reason for indwelling catheter: requires prolonged immobilization and patient's decreased level of consciousness. During procedure hand hygiene observed and sterile equipment and aseptic technique used. Return of 200 mL yellow-colored cloudy urine; attached to bedside drainage bag positioned below the bladder and secured with tape. She tolerated procedure well. --12:13 Arlene Salazar R.N. EKG time: (1205). EKG was performed by a tech and shown to the ED physician. --12:15 Amirah Fleming 13:47 03/23/16. BP: 168/75. HR: 106. RR: 20. O2 saturation: 96% on room air. Pain level now: 0/10. 12:38 03/23/16. BP: 177/87. HR: 100. RR: 18. O2 saturation: 96% on room air. Pain level now: 0/10. --13:49 Arlene Salazar R.N. 14:45 03/23/2016 Macrobid PO 100 mg given. Allergies verified and confirmed 5 rights. --14:55 Arlene Salazar R.N. Finger stick glucose: 237; performed by tech; result shown to the RN. --15:37 Amirah Fleming 15:26 03/23/2016 Insulin REG IVP 6 unit given over 1 minute(s) via site #1. Allergies verified and confirmed 5 rights. IV patency established. IV site checked: no pain, redness, or swelling. IV flushed thoroughly pre- and post-medication administration. IVP given by RN. --15:51 Arlene Salazar R.N. 15:30 03/23/2016 Site #1 removed upon discharge. Catheter intact. Bandaid applied. --15:52 Arlene Salazar R.N. 15:30 03/23/2016 IV Fluids IV NS Discontinued: bag #1 STOPPED upon discharge. Total amount infused: 800 mL. IV patency established. IV site checked: no pain, redness, or swelling. IV flushed thoroughly. --15:51 Arlene Salazar R.N. Intake & Output TOTAL INTAKE: 800. IV fluids: 800 mL. TOTAL OUTPUT: 500 mL. Urine: floey dc'd and emptied., with return of 500 mL yellow-colored cloudy urine. --14:54 Arlene Salazar R.N. DISPOSITION / DISCHARGE 15:30. Condition at departure: improved. ( glucose 237mg/dl). Transported via ambulance by transport team. Report was given to an EMT/P in person. Report included patient's care, treatment, medications, reviewed medication reconcilliation, and condition (including any recent changes or anticipated changes). All questions were answered. Care was transferred. Patient's personal items include: shirt, pants, undergarments, coat, socks, shoes and jewelry; items were placed in belongings bag and transported with the patient. Collection of belongings was witnessed by 1 nurse. --15:52 Arlene Salazar R.N. 15:32 03/23/16. BP: 144/79. HR: 72. RR: 18. O2 saturation: 98% on room air. Temp: deferred. Pain level now: 0/10. 13:47 03/23/16. BP: 168/75. HR: 106. RR: 20. O2 saturation: 96% on room air. Pain level now: 0. 12:38 03/23/16. BP: 177/87. HR: 100. RR: 18. O2 saturation: 96% on room air. Pain level now: 010. 11:47 03/23/16. BP: 163/75. HR: 91. RR: 18. O2 saturation: 96% on room air. Temp: 97.5 F. Pain level now: 0. --15:53 Arlene Salazar R.N. 16:40. ( Charo, Telephone Information Supervisor, called and questioned the discharge of the patient back to facility. Charo stated she was aware of the patient not being cooperative if she didn't want to be. Charo stated, "we know she can be that way, and we are very careful around her". Patient's family member here and spoke with the dr. Agreeable to the patient going back. Patient then transported back to [facility].). --16:55 Arlene Salazar R.N. correction to prior entry -Charo, field supervisor seed production of [facility]. --16:56 Arlene Salazar R.N. Locked/Released at 03/23/2016 16:57 by Arlene Salazar R.N.
--- NOTE | 2016-03-23 14:50 | ED CLINICAL REPORT ---
Clinical Report - Physicians/Mid Levels [facility] [address] [place] [address] 03/23/2016 11:12 Patient: YOU CASTRO Time Seen: 11:22. Arrived- By ambulance. Historian- patient and EMS personnel. HISTORY OF PRESENT ILLNESS Chief Complaint: DECREASED MENTAL STATUS. This started today and is still present. The patient is described as having decreased responsiveness. History of chronic dementia. No alcohol recently, recent drug use or medication given prior to arrival. Dextro stick was not low prior to arrival. No weakness, numbness or recent fall. No difficulty walking. The patient is usually alert but confused; she usually walks using a walker. Similar symptoms previously: Many times. Recent medical care: Not recently seen/assessed. REVIEW OF SYSTEMS No fever, headache, head injury, dizziness or chest pain. No difficulty breathing, cough, sputum production, blurred vision or sore throat. No abdominal pain, nausea, diarrhea, black stools or difficulty with urination. No skin rash, joint pain, vomiting, bloody stools or back pain. All systems otherwise negative, except as recorded above. PAST HISTORY Problems: Rectal Bleed. Labyrinthitis. Immunizations. Arthritis. Anemia. Hyperlipidemia. Hypertension. Glaucoma. Vertigo. Diabetes Mellitus. Additional Surgeries: Breast surgery. Knee. Medications: Gabapentin Oral (Capsule 100 mg) 1 capsule, 2x a day. Losartin 50mg am. Simvastatin Oral 20 mg, daily. Tradjenta Oral (Tablet 5 mg) 1 tablet, am. Ferrouos sulfate 325mg w/ vit C 500mg bid . Insulin, novalog 10units am. Acidophilus Oral, am. Escitalopram Oxalate Oral (Tablet 5 mg), daily. Gabapentin Oral. Insulin Lantus 28 28 Units, at bedtime. Allergies: Sulfa Antibiotics. SOCIAL HISTORY Never smoker. No alcohol use or drug use. ADDITIONAL NOTES The nursing notes have been reviewed. PHYSICAL EXAM Vital Signs: 03/23/2016 11:47 BP: 163/75. HR: 91. RR: 18. O2 saturation: 96%. Temp: 97.5 F. Pain level now: 0/10. Have been reviewed. Appearance: Alert. No acute distress. Head: Head atraumatic. Eyes: Pupils equal, round and reactive to light. ENT: Normal ENT inspection. Airway intact. Moist mucous membranes. Neck: Normal inspection. Neck supple. CVS: Normal heart rate and rhythm. Heart sounds normal. Pulses normal. Respiratory: No respiratory distress. Breath sounds normal. Abdomen: Soft and nontender. Back: Normal inspection. Skin: Skin warm and dry. Normal skin color. No rash. Normal skin turgor. Extremities: Extremities exhibit normal ROM. No lower extremity edema. Neuro: Alert. Mood/affect normal. Speech normal. Cranial nerves normal (as tested). No cerebellar findings. No motor deficit. No sensory deficit. LABS, X-RAYS, AND EKG EKG: EKG time: (1205). No acute ischemia. Normal sinus rhythm. Rate: 90. Normal P waves. Normal MADELIN. Wide QRS. LVH. Normal axis. Normal ST and T waves, QT and QTc. Prior EKG unavailable. The study has been interpreted contemporaneously by me. The study has been independently viewed by me. The EKG appears to be a good tracing. I agree with and confirm the computer reading of the EKG. Rhythm Strip #1: Time: (1200). Rate= 89. Normal sinus rhythm. Regular rhythm. Narrow QRS complexes. No ectopy. Conduction normal. Normal ST segments and T waves. The study was interpreted by me. Chest X-ray: No acute disease. Normal lung markings present. Normal heart size. Mediastinum normal. Great vessels normal. Soft tissues normal. No infiltrate. No fracture. No bony lesion present. Views: AP (portable). Technique: good. The X-rays were independently viewed by me, interpreted by the radiologist and contemporaneously by me and discussed with the radiologist. Prior films were not available for comparison. Laboratory Tests: UA-Culture if indicated: (TWIN: 03/23/2016 11:29) ( MsgRcvd 03/23/2016 12:06) Final results Test Result Flag Units (Reference) URINE COLOR YELLOW URINE APPEARANCE CLOUDY URINE GLUCOSE NEGATIVE (NEGATIVE) URINE BILIRUBIN NEGATIVE (NEGATIVE) URINE KETONE NEGATIVE (NEGATIVE) URINE SPECIFIC GRAVITY 1.015 (1.010-1.030) URINE PH 6.0 (5.0-8.0) URINE PROTEIN 1+ (NEGATIVE) URINE UROBILINOGEN 0.2 EU/dL (0.2-1.0) URINE NITRITE NEGATIVE (NEGATIVE) URINE BLOOD TRACE-LYSED (NEGATIVE) URINE LEUK ESTERASE POSITIVE (NEGATIVE) URINE RBC NONE SEEN rbc/hpf (0-1) URINE WBC 5-10 wbc/hpf (0-1) URINE EPITHELIAL CELLS RARE EPI/hpf (0-5) URINE BACTERIA MANY (4+) (NONE SEEN) URINE COMMENT CULTURE INDICATED URINE CULTURES ARE SET-UP BASED ON THE FOLLOWING CRITERIA:POSITIVE NITRITEPOSITIVE LEUKOCYTE ESTERASEGREATER THAN 10 WHITE BLOOD CELLSMODERATE (2+) OR GREATER BACTERIA CBC w Diff: (TWIN: 03/23/2016 11:22) ( MsgRcvd 03/23/2016 12:09) Final results Test Result Flag Units (Reference) WHITE BLOOD COUNT 8.2 K/uL (4.5-11.5) RED BLOOD COUNT 4.62 M/uL (4.00-5.20) HEMOGLOBIN 11.3 L gm/dL (12.0-16.0) HEMATOCRIT 35.0 L % (36.0-46.0) MEAN CELL VOLUME 76 L fL (80-100) MEAN CORPUSCULAR HGB 24 L pg (26-34) MEAN CORPUSCULAR HGB CONC 32 g/dL (31-37) RED CELL DISTRIBUTION WIDTH 19.5 H % (11.6-14.8) PLATELET COUNT 367 K/uL (150-400) NEUTROPHIL % 78.7 H % (50-75) LYMPH % 12.9 L % (25-40) MONO % 5.8 % (3-14) EOSINOPHIL % 1.1 % (0-4) BASOPHIL % 1.5 % (0-2) PT with INR: (TWIN: 03/23/2016 11:22) ( MsgRcvd 03/23/2016 12:17) Final results Test Result Flag Units (Reference) INR 1.0 (0.8-1.2) Low Intensity Therapy: INR 1.5-2.0 PT range 18.5-23.1Mod.Intensity Therapy: INR 2.0-3.0 PT range 23.1-31.5High Intensity Therapy: INR 2.5-3.5 PT range 27.4-35.5High Intensity Therapy 2: INR 3.0-4.0 PT range 31.5-39.3 BNP: (TWIN: 03/23/2016 11:22) ( MsgRcvd 03/23/2016 12:20) Final results Test Result Flag Units (Reference) B-TYPE NATRIURETIC PEPTIDE 202 H pg/ml (5-100) CHEM 13 PANEL: (TWIN: 03/23/2016 11:22) ( MsgRcvd 03/23/2016 12:06) Final results Test Result Flag Units (Reference) GLUCOSE 299 H mg/dL (70-110) BUN 16 mg/dL (7-18) CREATININE 1.2 mg/dL (0.6-1.3) Estimated GFR 45.60 mL/min Estimated GFR- 55.27 mL/min Note: Persistent reduction over 3 months in eGFR<60 mL/min/1.73 m2 defines CKD. Patients with eGFR values>=60 mL/min/1.73 m2 may also have CKD if evidence ofpersistent proteinuria. Additional information may be foundat www.kidney.org. SODIUM 131 L mmol/L (136-145) POTASSIUM 4.2 mmol/L (3.5-5.1) CHLORIDE 93 L mmol/L (98-107) CARBON DIOXIDE 31 mmol/L (21-32) CALCIUM 10.0 mg/dL (8.5-10.1) TOTAL PROTEIN 8.4 H g/dL (6.4-8.2) ALBUMIN 3.2 L g/dL (3.3-5.0) BILIRUBIN, TOTAL 0.7 mg/dL (0.0-1.0) ALKALINE PHOSPHATASE 103 U/L (46-116) AST (SGOT) 21 U/L (15-37) ALT (SGPT) 18 U/L (12-78) MAGNESIUM 1.1 L mg/dL (1.8-2.4) CPK 34 U/L (24-260) TROPONIN I <0.05 ng/mL (0.00-1.5) TROPONIN REFERENCE RANGE:<0.1 NEGATIVE0.1-1.5 INDETERMINANT>1.5 POSITIVE Culture, Urine: (TWIN: 03/23/2016 11:29) ( MsgRcvd 03/26/2016 10:27) Final results Test Result Flag Units (Reference) CULTURE, URINE DATE: 03/26/16 PRELIM REPORT: FINAL REPORT -- ESCCOL QUANTITATIVE URINE GROWTH: GREATER THAN 100,000 CFU/mL -- GDE QUANTITATIVE URINE GROWTH: 50,000 TO 100,000 CFU/mL AMOXICILLIN/CLAVULANATE AMPICILLIN S AMPICILLIN/SULBACTAM S CEFAZOLIN S CEFTRIAXONE S CEFEPIME S CEFUROXIME CIPROFLOXACIN S ERTAPENEM S GENTAMICIN S IMIPENEM S LEVOFLOXACIN S MEROPENEM S NITROFURANTOIN S TETRACYCLINE PIP/TAZO S TRIMETHOPRIM/SULFAMETHOXAZOLE S Type & Screen: (TWIN: 03/23/2016 11:22) ( MsgRcvd 03/23/2016 13:46) Final results Test Result Flag Units (Reference) PATIENT BLOOD TYPE A Positive Above is a corrected result. Previously reported on ( MsgRcvd 03/23/2016 13:23) as: PATIENT BLOOD TYPE A Positive ANTIBODY SCREEN NEGATIVE . Pulse Oximetry: 03/23/2016 11:47 O2 saturation: 96%. (FIO2 - room air). Interpretation: normal. PROGRESS AND PROCEDURES Course of Care: Pt was worked up for her sx, though she was alert in the ED, and was found to have a UTI. She was started on abx for this. I spoke at length with the pt's family, who stated that pt lives in an [facility], and is scheduled to move to another facility for higher level of care tomorrow. Pt is back to her recent baseline, and does not meet criteria for admission at this time. Family counseled in person regarding the patient's stable condition, test results, diagnosis and need for follow-up. Concerns were addressed. Old medical records reviewed. Disposition: Discharged. Condition: stable. CLINICAL IMPRESSION Minor GI bleed with hematochezia. Acute urinary tract infection with cystitis. Moderate hyperglycemia INSTRUCTIONS Warnings: GENERAL WARNINGS: Return or contact your physician immediately if your condition worsens or changes unexpectedly, if not improving as expected, or if other problems arise. Your Current Medications: CONTINUE TAKING THE FOLLOWING MEDICATIONS: Acidophilus Oral : am. Escitalopram Oxalate Oral : Tablet 5 mg, daily. Ferrouos sulfate 325mg w/ vit C 500mg bid *. Gabapentin Oral : Capsule 100 mg, 1 capsule 2x a day. Gabapentin Oral. Insulin Lantus 28* : 28 Units at bedtime. Insulin, novalog 10units am*. Losartin 50mg am*. Simvastatin Oral : 20 mg daily. Tradjenta Oral : Tablet 5 mg, 1 tablet am. Prescription Medications: Macrobid 100 mg: take 1 capsule orally every 12 hours for 7 days. No refill. Substitution is permissible. Follow-up: Follow up with your doctor in seven days if not better. Discharge instructions reviewed with and understanding was verbalized by caregiver. (Electronically signed by Maribel Ferreira MD 03/29/2016 17:00)
--- NOTE | 2016-03-29 17:00 | ED DISCHARGE INSTRUCTIONS ---
Patient: YOU CASTRO General Instructions [facility] VisitID: [id number] [place] [address] 85y, F Registration Date/Time: 03/23/2016 Minor GI bleed with hematochezia. Acute urinary tract infection with cystitis. Moderate hyperglycemia INSTRUCTIONS Warnings: GENERAL WARNINGS: Return or contact your physician immediately if your condition worsens or changes unexpectedly, if not improving as expected, or if other problems arise. Your Current Medications: CONTINUE TAKING THE FOLLOWING MEDICATIONS: Acidophilus Oral : am. Escitalopram Oxalate Oral : Tablet 5 mg, daily. Ferrouos sulfate 325mg w/ vit C 500mg bid *. Gabapentin Oral : Capsule 100 mg, 1 capsule 2x a day. Gabapentin Oral. Insulin Lantus 28* : 28 Units at bedtime. Insulin, novalog 10units am*. Losartin 50mg am*. Simvastatin Oral : 20 mg daily. Tradjenta Oral : Tablet 5 mg, 1 tablet am. Prescription Medications: Macrobid 100 mg: take 1 capsule orally every 12 hours for 7 days. No refill. Substitution is permissible. Follow-up: Follow up with your doctor in seven days if not better. Discharge instructions reviewed with and understanding was verbalized by caregiver. ADDITIONAL INFORMATION Bladder Infection,Female (Adult) A bladder infection ("cystitis" or "UTI") usually causes a constant urge to urinate and a burning when passing urine. Urine may be cloudy, smelly or dark. There may be pain in the lower abdomen. A bladder infection occurs when bacteria from the vaginal area enter the bladder opening (urethra). This can occur from sexual intercourse, wearing tight clothing, dehydration and other factors. Home Care: Drink lots of fluids (at least 6-8 glasses a day, unless you must restrict fluids for other medical reasons). This will force the medicine into your urinary system and flush the bacteria out of your body. Avoid sexual intercourse until your symptoms are gone. Avoid caffeine, alcohol and spicy foods. These can irritate the bladder. A bladder infection is treated with antibiotics. You may also be given Pyridium (generic = phenazopyridine) to reduce the burning sensation. This medicine will cause your urine to become a bright orange color. The orange urine may stain clothing. You may wear a pad or panty-liner to protect clothing. Preventing Future Infections: Always wipe from front to back after a bowel movement. Keep the genital area clean and dry. Drink plenty of fluids each day to avoid dehydration. Both sexual partners should wash before intercourse. Urinate right after intercourse to flush out the bladder. Wear cotton underwear and cotton-lined panty hose; avoid tight-fitting pants. If you are on control pills and are having frequent bladder infections, discuss with your doctor. Follow Up: Return to this facility or see your doctor if ALL symptoms are not gone after three days of treatment. Get Prompt Medical Attention if any of the following occur: Fever of 100.4F (38C) or higher, or as directed by your healthcare provider No improvement by the third day of treatment Increasing back or abdominal pain Repeated vomiting; unable to keep medicine down Weakness, dizziness or fainting Vaginal discharge Pain, redness or swelling in the labia (outer vaginal area) Rectal Bleeding (Stable) Your exam today shows signs of blood in the stool. This is called rectal bleeding, because the blood passes through the rectum. However, the blood may not be coming from the rectum. Blood in the stool may be red or black in color. Red blood in the stool usually comes from the lower gastro-intestinal (GI) tract. This may be due to diverticulosis, polyps, colon inflammation or infection, anal fissure or hemorrhoids. In persons over 50 tumors and cancer of the intestinal tract may first show up as red blood in the stool. Upper GI bleeding causes the stool to turn black. This may occur with bleeding from the esophagus, stomach, duodenum or small intestine. Very small amounts of GI bleeding may not be visible and can only be discovered on a chemical test of the stool. You have not lost a large amount of blood and your condition appears stable at this time. It is very important to have a follow-up exam to determine the exact cause of your bleeding. Home Care: 1) You may resume normal activity as long as you feel well. 2) Avoid aspirin and anti-inflammatory drugs such as ibuprofen (Advil, Motrin) and naproxen (Aleve and Naprosyn). You may use acetaminophen (Tylenol) for pain. [ NOTE : If you have chronic liver disease, talk with your doctor before using acetaminophen.] 3) Avoid alcohol. Follow Up with your doctor or as advised by our medical staff. It is very important that you have further tests done to find the cause of your bleeding. Get Prompt Medical Attention if any of the following occur: -- Large amount of rectal bleeding (more than 1 cup of blood in 24 hours) -- Increasing abdominal pain -- Weakness, dizziness or fainting -- Vomiting blood (red or black color) Diabetes with High Blood Sugar You have been treated for high blood sugar (hyperglycemia). This may be becauseof an infection or other illness;eating too many sweets or starches ; not taking enough insulin. Home care High blood sugar may cause symptoms that you can learn to recognize, such as these: If you feel like your blood sugar may be too high, measure it using a blood or urine test. If it is above your usual range, use the "sliding scale"rRegular insulin dose your doctor gave you to correct this. If no "sliding scale" orders were given, contact your doctor for further advice. If your blood sugar is over 300, and you can't reach your doctor, go to the hospital emergency room. Monitor and write down your blood sugars - and insulin dose, if you take insulin - atleast twice a day. Do this before breakfast and before dinner. Do this for the next 3 to 5 days. Follow-up care Follow up with your health care provderduring the next week to review your blood sugar records. You will find out if you need to adjust your dose of insulin or other medicine for blood sugar. When to seek medical care Get prompt medical attention if either of these occur: High blood sugar.Symptoms are frequent urination, feeling dizzy, thirst, headache, nausea or vomiting, abdominal pain, and drowsiness or loss of consciousness. Low blood sugar. Symptoms are fatigue, headache, shakes, excess sweating, hunger, anxiety, reduced vision, drowsiness, weakness, confusion or loss of consciousness, and seizure. You have been given the following additional information: Bladder Infection, Female (Adult) Rectal Bleed, Stable Diabetic Hyperglycemia (Electronically signed by Maribel Ferreira MD 03/29/2016 17:00)
--- NOTE | 2016-03-29 17:01 | ED MED RECONCILIATION SUMMARY ---
Patient: YOU CASTRO Medication Reconciliation Report [facility] VisitID: [id number] [address] [place] [address] 85y, F Registration Date/Time: 03/23/2016 Weight: 85.8 kg Height/Length: 64 in. BMI: 32.5 ALLERGIES: Sulfa Antibiotics The patient's Home Medications are listed below: CONTINUE TAKING THE FOLLOWING MEDICATIONS: Acidophilus Oral, am Escitalopram Oxalate Oral (5 mg), daily Ferrouos sulfate 325mg w/ vit C 500mg bid Gabapentin Oral (100 mg) 1 capsule, 2x a day Gabapentin Oral Insulin Lantus 28 28 Units, at bedtime Insulin, novalog 10units am Losartin 50mg am Simvastatin Oral 20 mg, daily Tradjenta Oral (5 mg) 1 tablet, am The source(s) of the original Home Medication information: patient's group home record The following Medications were given to the patient in the Emergency Department: IV NS IV Fluids bolus 500 mL over 30 minute(s), then 100 mL/hr, administered: 03/23/2016 12:12:00 PM Macrobid [PO] PO 100 mg, administered: 03/23/2016 2:45:00 PM Insulin REG [IVP] IVP 6 unit, administered: 03/23/2016 3:26:00 PM The following Medications were prescribed to the patient: Macrobid 100 mg: take 1 capsule orally every 12 hours for 7 days. No refill. Substitution is permissible. -- Maribel Ferreira MD
--- NOTE | 2016-03-29 17:01 | ED MED RECONCILIATION SUMMARY ---
Patient: YOU CASTRO Medication Reconciliation Report [facility] VisitID: [id number] [address] [place] [address] 85y, F Registration Date/Time: 03/23/2016 Weight: 85.8 kg Height/Length: 64 in. BMI: 32.5 ALLERGIES: Sulfa Antibiotics The patient's Home Medications are listed below: CONTINUE TAKING THE FOLLOWING MEDICATIONS: Acidophilus Oral, am Escitalopram Oxalate Oral (5 mg), daily Ferrouos sulfate 325mg w/ vit C 500mg bid Gabapentin Oral (100 mg) 1 capsule, 2x a day Gabapentin Oral Insulin Lantus 28 28 Units, at bedtime Insulin, novalog 10units am Losartin 50mg am Simvastatin Oral 20 mg, daily Tradjenta Oral (5 mg) 1 tablet, am The source(s) of the original Home Medication information: patient's longterm record The following Medications were given to the patient in the Emergency Department: IV NS IV Fluids bolus 500 mL over 30 minute(s), then 100 mL/hr, administered: 03/23/2016 12:12:00 PM Macrobid [PO] PO 100 mg, administered: 03/23/2016 2:45:00 PM Insulin REG [IVP] IVP 6 unit, administered: 03/23/2016 3:26:00 PM The following Medications were prescribed to the patient: Macrobid 100 mg: take 1 capsule orally every 12 hours for 7 days. No refill. Substitution is permissible. -- Maribel Ferreira MD
--- NOTE | 2016-03-29 17:01 | ED MAR SUMMARY ---
..... Medication Administration Record [facility] [address] [place] [address] Patient: YOU CASTRO Visit ID: [id number] 85y, F Weight: 85.8 kg Height/Length: 64 in BMI: 32.5 ALLERGIES: Sulfa Antibiotics Start 12:12 03/23/2016 Arlene Salazar R.N., Stop 15:30 03/23/2016 Arlene Salazar R.N. Medication Administered: IV NS (SALINE), Dose: IV Fluids over 5 hour(s), Rate: 100 mL/hr, Bolus: 500 mL over 30 minute(s), Dispensed: 1000 mL bag, Site: #1 right AC. Medication Ordered: IV NS : initial bolus 500 mL (1000 mL/hr), then 100 mL/hr (NOW). Given 14:45 03/23/2016 Arlene Salazar R.N. Medication Administered: MACROBID [PO], Dose: 100 mg PO. Medication Ordered: Macrobid PO 100 mg (NOW). Given 15:26 03/23/2016 Arlene Salazar R.N. Medication Administered: INSULIN REG [IVP], Dose: 6 unit IVP over 1 minute(s), Site: #1 right AC. Medication Ordered: Insulin Reg IV 6 units (HIGH ALERT MEDICATION, NOW).
--- NOTE | 2016-03-29 17:01 | ED MAR SUMMARY ---
..... Medication Administration Record [facility] [address] [place] [address] Patient: YOU CASTRO Visit ID: [id number] 85y, F Weight: 85.8 kg Height/Length: 64 in BMI: 32.5 ALLERGIES: Sulfa Antibiotics Start 12:12 03/23/2016 Arlene Salazar R.N., Stop 15:30 03/23/2016 Arlene Salazar R.N. Medication Administered: IV NS (SALINE), Dose: IV Fluids over 5 hour(s), Rate: 100 mL/hr, Bolus: 500 mL over 30 minute(s), Dispensed: 1000 mL bag, Site: #1 right AC. Medication Ordered: IV NS : initial bolus 500 mL (1000 mL/hr), then 100 mL/hr (NOW). Given 14:45 03/23/2016 Arlene Salazar R.N. Medication Administered: MACROBID [PO], Dose: 100 mg PO. Medication Ordered: Macrobid PO 100 mg (NOW). Given 15:26 03/23/2016 Arlene Salazar R.N. Medication Administered: INSULIN REG [IVP], Dose: 6 unit IVP over 1 minute(s), Site: #1 right AC. Medication Ordered: Insulin Reg IV 6 units (HIGH ALERT MEDICATION, NOW).
== END 2016-03-23 15:30 | disposition home or self-care (01) ==
LOC: ED SRH 11:12
DX: K92.2 Gastrointestinal hemorrhage, unspecified (principal); N30.90 Cystitis, unspecified without hematuria; E11.65 Type 2 diabetes mellitus with hyperglycemia; I10 Essential (primary) hypertension; Z79.4 Long term (current) use of insulin; Z79.899 Other long term (current) drug therapy; Z88.2 Allergy status to sulfonamides
CPT/HCPCS: 83475; 90001; 90004; 90070; 90098; 90100; 90148; 90155; 90469; 90616; 91004; 91320; 92610; 92720; 94060; 95059

== ENCOUNTER 2016-03-28 08:39 | Emergency (ER) | payer OTHER ==
--- NOTE | 2016-03-28 10:21 | ED ORDER SUMMARY ---
..... Patient: YOU CASTRO OrderSheet [facility] VisitID: [id number] [place] [address] 85y, F Registration Date/Time: 03/28/2016 ORDER SHEET Weight: 68.0 kg (estimated) Allergies: Sulfa Antibiotics GENERAL ORDERS: CBC w Diff Urgent (08:59 03/28/2016 Selina GARCIA) (Ack 9:01 LMuller) (9:46 LSullivan R.N.) (Cancelled: Other10:04 Vince GARCIA) CMP Urgent (08:03/28/2016 Selina GARCIA) (Ack 9:01 LMuller) (9:46 LSullivan R.N.) (Cancelled: Other10:05 Vince GARCIA) UA-Culture if indicated Urgent (08:03/28/2016 Selina GARCIA) (Ack 9:01 LMuller) (10:05 Vince GARCIA) (Cancelled: Other10:05 Vince GARCIA) Chest 1V Urgent (:03/28/2016 Vince GARCIA) (Ack 9:19 LMuller) (9:54 LMuller) (Cancelled: Other10:06 Vince GARCIA) Monument Setter (Continuous) (:03/28/2016 Vince GARCIA) (Ack 9:19 LMuller) (9:20 RKaruga) (Cancelled: Other10:05 Vince GARCIA) PT with INR Urgent (:03/28/2016 Vince GARCIA) (Ack 9:19 LMuller) (9:46 LSullivan R.N.) (Cancelled: Other10:05 Vince GARCIA) PTT Urgent (:03/28/2016 Vince GARCIA) (Ack 9:19 LMuller) (9:46 LSullivan R.N.) (Cancelled: Other10:05 Vince GARCIA) Amylase Urgent (:03/28/2016 Vince GARCIA) (Ack 9:19 LMuller) (9:46 LSullivan R.N.) (Cancelled: Other10:06 Vince GARCIA) Lipase Urgent (:03/28/2016 Vince GARCIA) (Ack 9:19 LMuller) (9:46 LSullivan R.N.) (Cancelled: Other10:06 Vince GARCIA) CPK Urgent (09:18 03/28/2016 Vince GARCIA) (Ack 9:19 LMuller) (9:46 LSullivan R.N.) (Cancelled: Other10:06 Vince GARCIA) Troponin-I Urgent (:18 03/28/2016 Vince GARCIA) (Ack 9:19 LMuller) (9:46 LSullivan R.N.) (Cancelled: Other10:06 Vince GARCIA) BNP Urgent (09:18 03/28/2016 Vince GARCIA) (Ack 9:19 LMuller) (9:46 LSullivan R.N.) (Cancelled: Other10:06 Vince GARCIA) Oxygen (2 L/min) (NC) (:18 03/28/2016 Vince GARCIA) (Ack 9:19 LMuller) (9:20 RKaruga) (Cancelled: Other10:05 Vince GARCIA) Pulse oximeter (:03/28/2016 Vince GARCIA) (Ack 9:19 LMuller) (9:21 RKaruga) EKG - ER Stat (:18 03/28/2016 Vince GARCIA) (Ack 9:19 LMuller) (10:05 Vince GARCIA) Vitals - Orthostatic (09:03/28/2016 Vince GARCIA) (Ack 9:19 LMchuy) (10:05 Vince GARCIA) (Cancelled: Other10:05 Vince GARCIA) MEDICATION ORDERS: IV FLUIDS: IV Saline Lock (08:59 03/28/2016 Selina GARCIA) (Cancelled: Duplicate Order9:29 LSullivan R.N.) IV Saline Lock (09:18 03/28/2016 Vince GARCIA) (9:46 LSullivan R.N.) ORDER SHEET NOTES: [Electronically signed by Melinda Shetty R.N. (16:39 03/28/2016)] [Electronically signed by Cristobal Iverson MD (19:04 03/28/2016)] [Electronically locked/signed by Melinda Shetty R.N. (16:39 03/28/2016)]
--- NOTE | 2016-03-28 10:21 | ED CLINICAL REPORT ---
Clinical Report - Physicians/Mid Levels [facility] [address] [place] [address] 03/28/2016 8:41 Patient: YOU CASTRO Time Seen: 09:02. Arrived- By ambulance. Historian- patient and EMS personnel. History limited by dementia. Physical Exam limited by dementia. HISTORY OF PRESENT ILLNESS Chief Complaint: WEAKNESS. This started today. (patient was sent here from the half-way. It is not clear specifically what their concerns were. Nursing staff contacted her family including her daughter who has power of real estate attorney. The patient was Accompanied by a POLST form that lists that she is to be DNR, DNI with comfort measures only. They have requested that no further workup be done the patient denies any concerns.). REVIEW OF SYSTEMS No chills, fever, sweats, calf pain or chest pain. No cough, difficulty breathing, pedal edema, palpitations or abdominal pain. No constipation, diarrhea, nausea, vomiting or urinary problems. All systems otherwise negative, except as recorded above. PAST HISTORY PCP - Rand Rogel. Problems: Hyperglycemia. UTI - Urinary Tract Infection. Rectal Bleed. GI Bleeding. Labyrinthitis. Arthritis. Anemia. Hyperlipidemia. Hypertension. Glaucoma. Vertigo. Diabetes Mellitus. Additional Surgeries: Breast surgery. Knee. Medications: Insulin, novalog 10units am. Losartin 50mg am. Simvastatin Oral 20 mg, daily. Tradjenta Oral (Tablet 5 mg) 1 tablet, am. Acidophilus Oral, am. Escitalopram Oxalate Oral (Tablet 5 mg), daily. Ferrouos sulfate 325mg w/ vit C 500mg bid . Gabapentin Oral (Capsule 100 mg) 1 capsule, 2x a day. Gabapentin Oral. Insulin Lantus 28 28 Units, at bedtime. Allergies: Sulfa Antibiotics. SOCIAL HISTORY Never smoker. No alcohol use or drug use. Residence: [facility] Resides in a half-way. FAMILY HISTORY Unable to obtain family medical history due to patient's unresponsiveness. ADDITIONAL NOTES The nursing notes have been reviewed. PHYSICAL EXAM Vital Signs: 03/28/2016 08:42 BP: 167/78. HR: 91. RR: 16. O2 saturation: 100%. Temp: 97.9 F. Pain level now: 0/10. Have been reviewed. Appearance: Alert. No acute distress. Eyes: Pupils equal, round and reactive to light. ENT: Pharynx normal. Neck: Normal inspection. Neck supple. No carotid bruit. CVS: Normal heart rate and rhythm. Heart sounds normal. Respiratory: No respiratory distress. Breath sounds normal. Abdomen: No visible injury. Soft and nontender. Bowel sounds normal. No organomegaly. No mass. Back: Normal inspection. Skin: Skin warm and dry. Normal skin color. Normal skin turgor. Extremities: Bilateral 1+ pitting edema of the lower extremities involving both feet and both ankles. No calf tenderness. LABS, X-RAYS, AND EKG EKG: Rate: 94. Wide QRS. Nondiagnostic Q waves in lead V1 and V2. LVH. EKG unchanged when compared with prior EKG. (03 Mar 2012). The study has been independently viewed by me. Artifact present. Laboratory Tests: CBC w Diff: (TWIN: 03/28/2016 09:30) ( Mscvd 03/28/2016 09:57) Final results Test Result Flag Units (Reference) WHITE BLOOD COUNT 8.3 K/uL (4.5-11.5) RED BLOOD COUNT 4.25 M/uL (4.00-5.20) HEMOGLOBIN 10.5 L gm/dL (12.0-16.0) HEMATOCRIT 31.9 L % (36.0-46.0) MEAN CELL VOLUME 75 L fL (80-100) MEAN CORPUSCULAR HGB 25 L pg (26-34) MEAN CORPUSCULAR HGB CONC 33 g/dL (31-37) RED CELL DISTRIBUTION WIDTH 20.0 H % (11.6-14.8) PLATELET COUNT 305 K/uL (150-400) NEUTROPHIL % 77.0 H % (50-75) LYMPH % 13.8 L % (25-40) MONO % 7.4 % (3-14) EOSINOPHIL % 1.4 % (0-4) BASOPHIL % 0.4 % (0-2) PT with INR: (TWIN: 03/28/2016 09:30) ( MsgRcvd 03/28/2016 10:04) Final results Test Result Flag Units (Reference) INR 1.1 (0.8-1.2) Low Intensity Therapy: INR 1.5-2.0 PT range 18.5-23.1Mod.Intensity Therapy: INR 2.0-3.0 PT range 23.1-31.5High Intensity Therapy: INR 2.5-3.5 PT range 27.4-35.5High Intensity Therapy 2: INR 3.0-4.0 PT range 31.5-39.3 APTT 26 SECONDS (24-34) . PROGRESS AND PROCEDURES Course of Care: Patient is stable. Patient/family counseled. Old medical records ordered. Disposition: Discharged. Condition: stable. CLINICAL IMPRESSION Chronic dementia. (Electronically signed by Cristobal Iverson MD 03/28/2016 19:04)
--- NOTE | 2016-03-28 10:21 | ED NURSING NOTES ---
Clinical Report - Nurses [facility] [address] [place] [address] 03/28/2016 8:41 Patient: YOU CASTRO TRIAGE Triage time 08:43. Acuity: LEVEL 4. Chief Complaint: CONFUSED and ACTING DIFFERENTLY (according to [facility] staff, although pt is new to this facility). --08:48 Melinda Shetty R.N. 08:42 03/28/16. BP: 167/78. HR: 91. RR: 16. O2 saturation: 100% on room air. Temp: 97.9 F. Pain level now: 010. --08:48 Melinda Shetty R.N. Weight: 68 kg estimated. Height/Length: 62 inches Estimated. BMI: 27.4. --08:42 Melinda Shetty R.N. Medications Acidophilus Oral, am. Escitalopram Oxalate Oral (Tablet 5 mg), daily. Ferrouos sulfate 325mg w/ vit C 500mg bid . Gabapentin Oral (Capsule 100 mg) 1 capsule, 2x a day. Gabapentin Oral. Insulin Lantus 28 28 Units, at bedtime. --08:47 Melinda Shetty R.N. Insulin, novalog 10units am. Losartin 50mg am. Simvastatin Oral 20 mg, daily. Tradjenta Oral (Tablet 5 mg) 1 tablet, am. --08:47 Melinda Shetty R.N. Allergies Sulfa Antibiotics. --08:47 Melinda Shetty R.N. History Arrived by EMS. Historian: EMS. Primary physician (Rand Rogel). This started just prior to arrival and today. NUTRITIONAL RISK ASSESSMENT: The nutritional risk assessment revealed no deficiencies. FUNCTIONAL ASSESSMENT: Functional assessment performed: cognitive impairment- senile dementia. LEARNING NEEDS ASSESSMENT: A learning needs assessment was performed. Factors affecting the patient's ability to learn include cognitive limitations. --08:48 Melinda Shetty R.N. ( CORRECTION: PT CAME FROM [facility], NOT [facility].). --10:20 Melinda Shetty R.N. PROBLEMS: Hyperglycemia. UTI - Urinary Tract Infection. Rectal Bleed. GI Bleeding. Labyrinthitis. Arthritis. Anemia. Hyperlipidemia. Hypertension. Glaucoma. Vertigo. Diabetes Mellitus. --08:48 Melinda Shetty R.N. ADDITIONAL SURGERIES: Breast surgery. Knee. --08:48 Melinda Shetty R.N. Interventions ID band on patient. To room. --08:48 Melinda Shetty R.N. PHYSICAL ASSESSMENT GENERAL / NEURO / PSYCH: ( Pt opens eyes to questions, but doesn't want to answer any. She did admit to being from [place], when asked. POLST form and meds list were only info sent over from [facility]. Pt on comfort measures only, and limited interventions.). --08:50 Melinda Shetty R.N. 10:15. ( Skin inspection done, pt's back and coccyx inspected, skin pink, no breakdown seen, right ankle reddish and scaley, appears chronic, pt has stockinettes over ankles, heels are in good condition also.). --10:33 Melinda Shetty R.N. NURSING PROGRESS NOTES 08:51 03/28/16. help desk team leader, pulse oximeter and NIBP monitor placed on patient; football pad repairer- Lead II and V1; monitor alarms on. Patient identifiers checked. Call light placed in reach. Bed placed in lowest position. Patient ready for evaluation. --08:51 Melinda Shetty R.N. 09:00. Finger stick glucose: 213 mg/dL; performed by tech; result shown to the ED physician. --09:05 Madiha Tamayo 09:46 03/28/2016 Site #1 started via IV in the right antecubital space with an 20g angiocath; one attempt. Blood drawn: rainbow set. Sent to the lab. Saline lock flushed with 10 mL saline. --09:46 Melinda Shetty R.N. EKG time: (9:47 AM). EKG was performed by a tech and shown to the ED physician. --09:50 Madiha Tamayo ( XRay is at bedside.). --09:51 Madiha Tamayo ( Phone call received from Edwin, pt's son. He was very upset that his mom was brought to the ED against his and the family's wishes. He explained that they want comfort measures only, and seemed adamant about this, since pt has been hospitalized numerous times for various things. Then, spoke to Ellie, who is POA, on phone. She was in the process of moving all of pt's belongings, stated pt was just moved to [facility], and was told pt was found "unconscious". Ellie is not concerned about her LOC. She also states she wants comfort measures only, and that pt already is being treated for a UTI with an antibiotic, so she did not want us to cath pt to get another urine culture, as it would be painful for her, and so, declined to have her cathed for a sample. Family is in agreement that they do not want pt brought to the hospital for any reason, and that she be provided lots of comfort, and that's all. All info relayed to [facility] for review.). --10:11 Melinda Shetty R.N. correction to prior entry -PT IS ACTUALLY FROM [facility], NOT [facility]. --10:21 Melinda Shetty R.N. 11:02 03/28/16. ( First contact with pt. Pt standing at bedside,states she wants to go to bathroom. helped to [facility] x 2 staff. approx 200cc urine out. Pt placed in w/c with bedside table placed over lap with po food and fluids given --waiting for transport). --11:02 Dania Powell R.N. DISPOSITION / DISCHARGE 10:22 03/28/16. BP: 160/103. HR: 99. RR: 22. O2 saturation: 99%. Temp: 97.9 F. Pain level now: 0/10. --10:28 Melinda Shetty R.N. 10:29 03/28/16. Discharge instructions provided and reviewed with the caregiver. The patient was [facility] to the [facility] and (per family's wishes, ambulance notified to take pt home). --10:29 Melinda Shetty R.N. ( Pt transported back to [facility].). --10:34 Melinda Shetty R.N. ( Phone number for MARANDA Argueta [phone], phone number for carlos Pineda [phone]). --10:36 Melinda Shetty R.N. Locked/Released at 03/28/2016 16:39 by Melinda Shetty R.N.
--- NOTE | 2016-03-28 10:21 | ED CLINICAL REPORT ---
Clinical Report - Physicians/Mid Levels [facility] [address] [place] [address] 03/28/2016 8:41 Patient: YOU CASTRO Time Seen: 09:02. Arrived- By ambulance. Historian- patient and EMS personnel. History limited by dementia. Physical Exam limited by dementia. HISTORY OF PRESENT ILLNESS Chief Complaint: WEAKNESS. This started today. (patient was sent here from the shelter. It is not clear specifically what their concerns were. Nursing staff contacted her family including her daughter who has power of civil rights attorney. The patient was Accompanied by a POLST form that lists that she is to be DNR, DNI with comfort measures only. They have requested that no further workup be done the patient denies any concerns.). REVIEW OF SYSTEMS No chills, fever, sweats, calf pain or chest pain. No cough, difficulty breathing, pedal edema, palpitations or abdominal pain. No constipation, diarrhea, nausea, vomiting or urinary problems. All systems otherwise negative, except as recorded above. PAST HISTORY PCP - Rand Rogel. Problems: Hyperglycemia. UTI - Urinary Tract Infection. Rectal Bleed. GI Bleeding. Labyrinthitis. Arthritis. Anemia. Hyperlipidemia. Hypertension. Glaucoma. Vertigo. Diabetes Mellitus. Additional Surgeries: Breast surgery. Knee. Medications: Insulin, novalog 10units am. Losartin 50mg am. Simvastatin Oral 20 mg, daily. Tradjenta Oral (Tablet 5 mg) 1 tablet, am. Acidophilus Oral, am. Escitalopram Oxalate Oral (Tablet 5 mg), daily. Ferrouos sulfate 325mg w/ vit C 500mg bid . Gabapentin Oral (Capsule 100 mg) 1 capsule, 2x a day. Gabapentin Oral. Insulin Lantus 28 28 Units, at bedtime. Allergies: Sulfa Antibiotics. SOCIAL HISTORY Never smoker. No alcohol use or drug use. Residence: [facility] Resides in a shelter. FAMILY HISTORY Unable to obtain family medical history due to patient's unresponsiveness. ADDITIONAL NOTES The nursing notes have been reviewed. PHYSICAL EXAM Vital Signs: 03/28/2016 08:42 BP: 167/78. HR: 91. RR: 16. O2 saturation: 100%. Temp: 97.9 F. Pain level now: 0/10. Have been reviewed. Appearance: Alert. No acute distress. Eyes: Pupils equal, round and reactive to light. ENT: Pharynx normal. Neck: Normal inspection. Neck supple. No carotid bruit. CVS: Normal heart rate and rhythm. Heart sounds normal. Respiratory: No respiratory distress. Breath sounds normal. Abdomen: No visible injury. Soft and nontender. Bowel sounds normal. No organomegaly. No mass. Back: Normal inspection. Skin: Skin warm and dry. Normal skin color. Normal skin turgor. Extremities: Bilateral 1+ pitting edema of the lower extremities involving both feet and both ankles. No calf tenderness. LABS, X-RAYS, AND EKG EKG: Rate: 94. Wide QRS. Nondiagnostic Q waves in lead V1 and V2. LVH. EKG unchanged when compared with prior EKG. (03 Mar 2012). The study has been independently viewed by me. Artifact present. Laboratory Tests: CBC w Diff: (TWIN: 03/28/2016 09:30) ( Mscvd 03/28/2016 09:57) Final results Test Result Flag Units (Reference) WHITE BLOOD COUNT 8.3 K/uL (4.5-11.5) RED BLOOD COUNT 4.25 M/uL (4.00-5.20) HEMOGLOBIN 10.5 L gm/dL (12.0-16.0) HEMATOCRIT 31.9 L % (36.0-46.0) MEAN CELL VOLUME 75 L fL (80-100) MEAN CORPUSCULAR HGB 25 L pg (26-34) MEAN CORPUSCULAR HGB CONC 33 g/dL (31-37) RED CELL DISTRIBUTION WIDTH 20.0 H % (11.6-14.8) PLATELET COUNT 305 K/uL (150-400) NEUTROPHIL % 77.0 H % (50-75) LYMPH % 13.8 L % (25-40) MONO % 7.4 % (3-14) EOSINOPHIL % 1.4 % (0-4) BASOPHIL % 0.4 % (0-2) PT with INR: (TWIN: 03/28/2016 09:30) ( MsgRcvd 03/28/2016 10:04) Final results Test Result Flag Units (Reference) INR 1.1 (0.8-1.2) Low Intensity Therapy: INR 1.5-2.0 PT range 18.5-23.1Mod.Intensity Therapy: INR 2.0-3.0 PT range 23.1-31.5High Intensity Therapy: INR 2.5-3.5 PT range 27.4-35.5High Intensity Therapy 2: INR 3.0-4.0 PT range 31.5-39.3 APTT 26 SECONDS (24-34) . PROGRESS AND PROCEDURES Course of Care: Patient is stable. Patient/family counseled. Old medical records ordered. Disposition: Discharged. Condition: stable. CLINICAL IMPRESSION Chronic dementia. (Electronically signed by Cristobal Iverson MD 03/28/2016 19:04)
--- NOTE | 2016-03-28 10:21 | ED NURSING NOTES ---
Clinical Report - Nurses [facility] [address] [place] [address] 03/28/2016 8:41 Patient: YOU CASTRO TRIAGE Triage time 08:43. Acuity: LEVEL 4. Chief Complaint: CONFUSED and ACTING DIFFERENTLY (according to [facility] staff, although pt is new to this facility). --08:48 Melinda Shetty R.N. 08:42 03/28/16. BP: 167/78. HR: 91. RR: 16. O2 saturation: 100% on room air. Temp: 97.9 F. Pain level now: 010. --08:48 Melinda Shetty R.N. Weight: 68 kg estimated. Height/Length: 62 inches Estimated. BMI: 27.4. --08:42 Melinda Shetty R.N. Medications Acidophilus Oral, am. Escitalopram Oxalate Oral (Tablet 5 mg), daily. Ferrouos sulfate 325mg w/ vit C 500mg bid . Gabapentin Oral (Capsule 100 mg) 1 capsule, 2x a day. Gabapentin Oral. Insulin Lantus 28 28 Units, at bedtime. --08:47 Melinda Shetty R.N. Insulin, novalog 10units am. Losartin 50mg am. Simvastatin Oral 20 mg, daily. Tradjenta Oral (Tablet 5 mg) 1 tablet, am. --08:47 Melinda Shetty R.N. Allergies Sulfa Antibiotics. --08:47 Melinda Shetty R.N. History Arrived by EMS. Historian: EMS. Primary physician (Rand Rogel). This started just prior to arrival and today. NUTRITIONAL RISK ASSESSMENT: The nutritional risk assessment revealed no deficiencies. FUNCTIONAL ASSESSMENT: Functional assessment performed: cognitive impairment- senile dementia. LEARNING NEEDS ASSESSMENT: A learning needs assessment was performed. Factors affecting the patient's ability to learn include cognitive limitations. --08:48 Melinda Shetty R.N. ( CORRECTION: PT CAME FROM [facility], NOT [facility] --10:20 Melinda Shetty R.N. PROBLEMS: Hyperglycemia. UTI - Urinary Tract Infection. Rectal Bleed. GI Bleeding. Labyrinthitis. Arthritis. Anemia. Hyperlipidemia. Hypertension. Glaucoma. Vertigo. Diabetes Mellitus. --08:48 Melinda Shetty R.N. ADDITIONAL SURGERIES: Breast surgery. Knee. --08:48 Melinda Shetty R.N. Interventions ID band on patient. To room. --08:48 Melinda Shetty R.N. PHYSICAL ASSESSMENT GENERAL / NEURO / PSYCH: ( Pt opens eyes to questions, but doesn't want to answer any. She did admit to being from [place], when asked. POLST form and meds list were only info sent over from [facility]. Pt on comfort measures only, and limited interventions.). --08:50 Melinda Shetty R.N. 10:15. ( Skin inspection done, pt's back and coccyx inspected, skin pink, no breakdown seen, right ankle reddish and scaley, appears chronic, pt has stockinettes over ankles, heels are in good condition also.). --10:33 Melinda Shetty R.N. NURSING PROGRESS NOTES 08:51 03/28/16. child monitor, pulse oximeter and NIBP monitor placed on patient; clinical research monitor- Lead II and V1; monitor alarms on. Patient identifiers checked. Call light placed in reach. Bed placed in lowest position. Patient ready for evaluation. --08:51 Melinda Shetty R.N. 09:00. Finger stick glucose: 213 mg/dL; performed by tech; result shown to the ED physician. --09:05 Madiha Tamayo 09:46 03/28/2016 Site #1 started via IV in the right antecubital space with an 20g angiocath; one attempt. Blood drawn: rainbow set. Sent to the lab. Saline lock flushed with 10 mL saline. --09:46 Melinda Shetty R.N. EKG time: (9:47 AM). EKG was performed by a tech and shown to the ED physician. --09:50 Madiha Tamayo ( XRay is at bedside.). --09:51 Madiha Tamayo ( Phone call received from Edwin, pt's son. He was very upset that his mom was brought to the ED against his and the family's wishes. He explained that they want comfort measures only, and seemed adamant about this, since pt has been hospitalized numerous times for various things. Then, spoke to Ellie, who is POA, on phone. She was in the process of moving all of pt's belongings, stated pt was just moved to [facility], and was told pt was found "unconscious". Ellie is not concerned about her LOC. She also states she wants comfort measures only, and that pt already is being treated for a UTI with an antibiotic, so she did not want us to cath pt to get another urine culture, as it would be painful for her, and so, declined to have her cathed for a sample. Family is in agreement that they do not want pt brought to the hospital for any reason, and that she be provided lots of comfort, and that's all. All info relayed to [facility] for review.). --10:11 Melinda Shetty R.N. correction to prior entry -PT IS ACTUALLY FROM [facility], NOT [facility]. --10:21 Melinda Shetty R.N. 11:02 03/28/16. ( First contact with pt. Pt standing at bedside,states she wants to go to bathroom. helped to [facility] x 2 staff. approx 200cc urine out. Pt placed in w/c with bedside table placed over lap with po food and fluids given --waiting for transport). --11:02 Dania Powell R.N. DISPOSITION / DISCHARGE 10:22 03/28/16. BP: 160/103. HR: 99. RR: 22. O2 saturation: 99%. Temp: 97.9 F. Pain level now: 0/10. --10:28 Melinda Shetty R.N. 10:29 03/28/16. Discharge instructions provided and reviewed with the caregiver. The patient was discharged to the alf and (per family's wishes, ambulance notified to take pt home). --10:29 Melinda Shetty R.N. ( Pt transported back to [facility].). --10:34 Melinda Shetty R.N. ( Phone number for MARANDA Argueta [phone], phone number for carlos Pineda [phone]). --10:36 Melinda Shetty R.N. Locked/Released at 03/28/2016 16:39 by Melinda Shetty R.N.
--- NOTE | 2016-03-28 10:21 | ED ORDER SUMMARY ---
..... Patient: YOU CASTRO OrderSheet [facility] VisitID: [id number] [place] [address] 85y, F Registration Date/Time: 03/28/2016 ORDER SHEET Weight: 68.0 kg (estimated) Allergies: Sulfa Antibiotics GENERAL ORDERS: CBC w Diff Urgent (08:59 03/28/2016 Selina GARCIA) (Ack 9:01 LMuller) (9:46 LSullivan R.N.) (Cancelled: Other10:04 Vince GARCIA) CMP Urgent (08:03/28/2016 Selina GARCIA) (Ack 9:01 LMuller) (9:46 LSullivan R.N.) (Cancelled: Other10:05 Vince GARCIA) UA-Culture if indicated Urgent (08:03/28/2016 Selina GARCIA) (Ack 9:01 LMuller) (10:05 Vince GARCIA) (Cancelled: Other10:05 Vince GARCIA) Chest 1V Urgent (:03/28/2016 Vince GARCIA) (Ack 9:19 LMuller) (9:54 LMuller) (Cancelled: Other10:06 Vince GARCIA) Technology Applications Teacher (Continuous) (:03/28/2016 Vince GARCIA) (Ack 9:19 LMuller) (9:20 RKaruga) (Cancelled: Other10:05 Vince GARCIA) PT with INR Urgent (:03/28/2016 Vince GARCIA) (Ack 9:19 LMuller) (9:46 LSullivan R.N.) (Cancelled: Other10:05 Vince GARCIA) PTT Urgent (:03/28/2016 Vince GARCIA) (Ack 9:19 LMuller) (9:46 LSullivan R.N.) (Cancelled: Other10:05 Vince GARCIA) Amylase Urgent (:03/28/2016 Vince GARCIA) (Ack 9:19 LMuller) (9:46 LSullivan R.N.) (Cancelled: Other10:06 Vince GARCIA) Lipase Urgent (:03/28/2016 Vince GARCIA) (Ack 9:19 LMuller) (9:46 LSullivan R.N.) (Cancelled: Other10:06 Vince GARCIA) CPK Urgent (09:18 03/28/2016 Vince GARCIA) (Ack 9:19 LMuller) (9:46 LSullivan R.N.) (Cancelled: Other10:06 Vince GARCIA) Troponin-I Urgent (:18 03/28/2016 Vince GARCIA) (Ack 9:19 LMuller) (9:46 LSullivan R.N.) (Cancelled: Other10:06 Vince GARCIA) BNP Urgent (09:18 03/28/2016 Vince GARCIA) (Ack 9:19 LMuller) (9:46 LSullivan R.N.) (Cancelled: Other10:06 Vince GARCIA) Oxygen (2 L/min) (NC) (:18 03/28/2016 Vince GARCIA) (Ack 9:19 LMuller) (9:20 RKaruga) (Cancelled: Other10:05 Vince GARCIA) Pulse oximeter (:03/28/2016 Vince GARCIA) (Ack 9:19 LMuller) (9:21 RKaruga) EKG - ER Stat (:18 03/28/2016 Vince GARCIA) (Ack 9:19 LMuller) (10:05 Vince GARCIA) Vitals - Orthostatic (09:03/28/2016 Vince GARCIA) (Ack 9:19 LMchuy) (10:05 Vince GACRIA) (Cancelled: Other10:05 Vince GARCIA) MEDICATION ORDERS: IV FLUIDS: IV Saline Lock (08:59 03/28/2016 Selina GARCIA) (Cancelled: Duplicate Order9:29 LSullivan R.N.) IV Saline Lock (09:18 03/28/2016 Vince GARCIA) (9:46 LSullivan R.N.) ORDER SHEET NOTES: [Electronically signed by Melinda Shetty R.N. (16:39 03/28/2016)] [Electronically signed by Cristobal Iverson MD (19:04 03/28/2016)] [Electronically locked/signed by Melinda Shetty R.N. (16:39 03/28/2016)]
--- NOTE | 2016-03-28 11:38 | DIAGNOSTIC IMAGING REPORT ---
PROCEDURE: XR CHEST 1 VIEW INDICATION: WEAKNESS TECHNIQUE: Portable AP view (). COMPARISON: None. FINDINGS: Allowing for suboptimal inspiration, there is mild volume loss at the lung bases. Lungs are otherwise clear. Heart and mediastinum are normal. Metal surgical anchor in the left humeral head. Thorax is otherwise normal. IMPRESSION: 1. Mild basilar volume loss (accentuated due to suboptimal inspiration). 2. Otherwise negative chest.
--- NOTE | 2016-03-28 19:04 | ED DISCHARGE INSTRUCTIONS ---
Patient: YOU CASTRO General Instructions [facility] VisitID: [id number] [place] [address] 85y, F Registration Date/Time: 03/28/2016 Chronic dementia. ADDITIONAL INFORMATION Dementia & Caregiver Support (Advice For The Caregiver) Dementia is a chronic condition that affects the brain. It causes a gradual loss of memory. There may be trouble recognizing familiar people and places, or knowing what day it is. Memory, judgment and decision-making may also be affected. In severe cases there may be limited or no response to verbal commands. The most common form of dementia is Alzheimers disease. The cause of Alzheimer's disease is not fully understood. So far there is no cure. However, there are medicines to slow down the progress of the disease and to treat some of the symptoms. Some of the less common causes for dementia are curable. So, it is important to have a complete medical evaluation to look for conditions that can be treated. Home Care: A responsible person must be with the person who has advanced dementia at all times. He/she should not be left alone or unsupervised. In the case of advanced advanced dementia, keep medicines (prescription and jecv-fik-cjammgb) in a secure place, under the caregivers control. A person with advanced dementia should not be allowed to take their own medicines. This needs to be supervised by the caregiver. Ways to help a person with dementia: Activities:Keep to a daily routine. Changes in environment and schedules can be a source of stress for someone with dementia. Make a time schedule for common tasks of living such as bathing, dressing, taking medicines, meal times, going for walks, shopping, naps, and bed time. Communication:When speaking to a person with dementia, talk slowly and clearly. Use a gentle tone of voice. Choose short, simple words and sentences. Ask one question at a time. Do not interrupt, criticize or argue. Be calm and supportive. Use friendly facial expressions. Use pointing and touching to help communicate. If there has been loss of long-term memory, do not ask questions about past events. Instead, talk about what is happening now. Behavioral tips:Use lists, signs, family photos, clocks and calendars as memory aids. Label cabinets and drawers. Try to distract, not confront, the patient. When he/she becomes frustrated or upset, direct his/her attention to eating or some other activity of interest. Medical-Legal tips: Talk to your doctor and/or sleeve separator about getting a Power of Business Services Officer for health care and for financial decisions. It is best to do this while the person can still sign legal documents and make his/her own legal decisions. Otherwise a court order will be needed. Support For The Caregiver: As the caregiver, you will need a lot of support for yourself. Caring for a person with dementia is a full-time job. It can drain your emotions and lead to frustration and anger towards the one you love. It is common to have feelings of grief over losing the familiar relationship that you once knew. As a caregiver to someone with dementia, you are at higher risk for depression, anxiety and stress reactions. Here are some tips to help you cope with being a caregiver: Learn about dementia and Alzheimers disease so you know what to expect. Find out about the resources in your community, including adult day care programs. Ask our staff for a referral to a aids social worker, if needed. Take care of yourself with a good diet, exercise and plenty of rest. Ask for help. Share some of the caretaking duties with family and friends. Make personal time for yourself. This is essential! Consider hiring an in-home sitter. Seek counseling and/or join a caregivers support group. Don't isolate yourself, or try to cope with this alone. In a support group, you can learn from others in a similar situation. Contact the Alzheimers Association ( ) or visit their website (www.alz.org) for more information. Follow-Up with the patients doctor or as advised by our staff. Get Prompt Medical Attention if any of the following occur: Frequent falling Refusal to eat or drink Violent behavior or behavior becomes too difficult to manage at home Increased drowsiness, or failure to respond normally Increasing headache, nausea or repeated vomiting Numbness or weakness of the face, one arm or one leg Slurred speech, trouble speaking, walking or seeing Fainting spell, dizziness or seizure Unexplained fever over 100.4 F (38.0 C) oral You have been given the following additional information: Dementia, Any Type (Electronically signed by Cristobal Iverson MD 03/28/2016 19:04)
--- NOTE | 2016-03-28 19:04 | ED MAR SUMMARY ---
..... Medication Administration Record [facility] [address] [place], [place] [id number] Patient: YOU CASTRO Visit ID: [id number] 85y, F Weight: 68.0 kg Height/Length: 62 in BMI: 27.4 ALLERGIES: Sulfa Antibiotics
--- NOTE | 2016-03-28 19:04 | ED MED RECONCILIATION SUMMARY ---
Patient: YOU CASTRO Medication Reconciliation Report [facility] VisitID: [id number] [address] [place] [address] 85y, F Registration Date/Time: 03/28/2016 Weight: 68.0 kg Height/Length: 62 in. BMI: 27.4 ALLERGIES: Sulfa Antibiotics The patient's Home Medications are listed below: THE FOLLOWING MEDICATIONS NEED TO BE RECONCILED: Acidophilus Oral, am Escitalopram Oxalate Oral (5 mg), daily Ferrouos sulfate 325mg w/ vit C 500mg bid Gabapentin Oral (100 mg) 1 capsule, 2x a day Gabapentin Oral Insulin Lantus 28 28 Units, at bedtime Insulin, novalog 10units am Losartin 50mg am Simvastatin Oral 20 mg, daily Tradjenta Oral (5 mg) 1 tablet, am The source(s) of the original Home Medication information: Not obtained. The following Medications were given to the patient in the Emergency Department: None. The following Medications were prescribed to the patient: None.
--- NOTE | 2016-03-28 19:04 | ED DISCHARGE INSTRUCTIONS ---
Patient: YOU CASTRO General Instructions [facility] VisitID: [id number] [place] [address] 85y, F Registration Date/Time: 03/28/2016 Chronic dementia. ADDITIONAL INFORMATION Dementia & Caregiver Support (Advice For The Caregiver) Dementia is a chronic condition that affects the brain. It causes a gradual loss of memory. There may be trouble recognizing familiar people and places, or knowing what day it is. Memory, judgment and decision-making may also be affected. In severe cases there may be limited or no response to verbal commands. The most common form of dementia is Alzheimers disease. The cause of Alzheimer's disease is not fully understood. So far there is no cure. However, there are medicines to slow down the progress of the disease and to treat some of the symptoms. Some of the less common causes for dementia are curable. So, it is important to have a complete medical evaluation to look for conditions that can be treated. Home Care: A responsible person must be with the person who has advanced dementia at all times. He/she should not be left alone or unsupervised. In the case of advanced advanced dementia, keep medicines (prescription and anli-tmn-wbgdeay) in a secure place, under the caregivers control. A person with advanced dementia should not be allowed to take their own medicines. This needs to be supervised by the caregiver. Ways to help a person with dementia: Activities:Keep to a daily routine. Changes in environment and schedules can be a source of stress for someone with dementia. Make a time schedule for common tasks of living such as bathing, dressing, taking medicines, meal times, going for walks, shopping, naps, and bed time. Communication:When speaking to a person with dementia, talk slowly and clearly. Use a gentle tone of voice. Choose short, simple words and sentences. Ask one question at a time. Do not interrupt, criticize or argue. Be calm and supportive. Use friendly facial expressions. Use pointing and touching to help communicate. If there has been loss of long-term memory, do not ask questions about past events. Instead, talk about what is happening now. Behavioral tips:Use lists, signs, family photos, clocks and calendars as memory aids. Label cabinets and drawers. Try to distract, not confront, the patient. When he/she becomes frustrated or upset, direct his/her attention to eating or some other activity of interest. Medical-Legal tips: Talk to your doctor and/or case consultant about getting a Power of Airport Operations Supervisor for health care and for financial decisions. It is best to do this while the person can still sign legal documents and make his/her own legal decisions. Otherwise a court order will be needed. Support For The Caregiver: As the caregiver, you will need a lot of support for yourself. Caring for a person with dementia is a full-time job. It can drain your emotions and lead to frustration and anger towards the one you love. It is common to have feelings of grief over losing the familiar relationship that you once knew. As a caregiver to someone with dementia, you are at higher risk for depression, anxiety and stress reactions. Here are some tips to help you cope with being a caregiver: Learn about dementia and Alzheimers disease so you know what to expect. Find out about the resources in your community, including adult day care programs. Ask our staff for a referral to a social media community manager, if needed. Take care of yourself with a good diet, exercise and plenty of rest. Ask for help. Share some of the caretaking duties with family and friends. Make personal time for yourself. This is essential! Consider hiring an in-home sitter. Seek counseling and/or join a caregivers support group. Don't isolate yourself, or try to cope with this alone. In a support group, you can learn from others in a similar situation. Contact the Alzheimers Association ( ) or visit their website (www.alz.org) for more information. Follow-Up with the patients doctor or as advised by our staff. Get Prompt Medical Attention if any of the following occur: Frequent falling Refusal to eat or drink Violent behavior or behavior becomes too difficult to manage at home Increased drowsiness, or failure to respond normally Increasing headache, nausea or repeated vomiting Numbness or weakness of the face, one arm or one leg Slurred speech, trouble speaking, walking or seeing Fainting spell, dizziness or seizure Unexplained fever over 100.4 F (38.0 C) oral You have been given the following additional information: Dementia, Any Type (Electronically signed by Cristobal Iverson MD 03/28/2016 19:04)
--- NOTE | 2016-03-28 19:04 | ED MAR SUMMARY ---
..... Medication Administration Record [facility] [address] [place], [place] [id number] Patient: YOU CASTRO Visit ID: [id number] 85y, F Weight: 68.0 kg Height/Length: 62 in BMI: 27.4 ALLERGIES: Sulfa Antibiotics
--- NOTE | 2016-03-28 19:04 | ED MED RECONCILIATION SUMMARY ---
Patient: YOU CASTRO Medication Reconciliation Report [facility] VisitID: [id number] [address] [place] [address] 85y, F Registration Date/Time: 03/28/2016 Weight: 68.0 kg Height/Length: 62 in. BMI: 27.4 ALLERGIES: Sulfa Antibiotics The patient's Home Medications are listed below: THE FOLLOWING MEDICATIONS NEED TO BE RECONCILED: Acidophilus Oral, am Escitalopram Oxalate Oral (5 mg), daily Ferrouos sulfate 325mg w/ vit C 500mg bid Gabapentin Oral (100 mg) 1 capsule, 2x a day Gabapentin Oral Insulin Lantus 28 28 Units, at bedtime Insulin, novalog 10units am Losartin 50mg am Simvastatin Oral 20 mg, daily Tradjenta Oral (5 mg) 1 tablet, am The source(s) of the original Home Medication information: Not obtained. The following Medications were given to the patient in the Emergency Department: None. The following Medications were prescribed to the patient: None.
== END 2016-03-28 11:00 | disposition home or self-care (01) ==
LOC: ED SRH 08:39
DX: F03.90 Unspecified dementia, unspecified severity, without behavioral disturbance, psychotic disturbance, mood disturbance, and anxiety (principal); E11.9 Type 2 diabetes mellitus without complications; I10 Essential (primary) hypertension; Z79.4 Long term (current) use of insulin; Z79.899 Other long term (current) drug therapy; Z88.2 Allergy status to sulfonamides
CPT/HCPCS: 90098; 90100; 90616; 91320; 92235; 92530; 92610; 94001; 94060; 95059